=== PATIENT | male | born 1930 | race Caucasian/White ===

== ENCOUNTER 2017-08-18 12:44 | Inpatient (IN) | payer MEDICARE, BC ==
[~2017-08-18] VITALS: Ht 182.9 cm; Wt 143.4 kg
[~2017-08-18 12:44] MED LIST: AGGRENOX 200/251 CAP PO; ALDACTONE25 MG PO; BUMEX2 MG PO; HALCION0.25 MG PO; K-TAB10 MEQ PO; LANTUS SOL100 UNIT/1; LANTUS SOL100 UNIT/1 SC; LASIX80 MG PO; LEVSIN/ANASP0.125 MG PO; LYRICA75 MG PO; METOPROLOL TART25 MG PO; MULTIPLE VITAMI1 TA1 PO; MYRBETRIQ25 MG PO; NOVOLIN R100 U/ML SC; NOVOLIN R100 U/ML SQ; OXYBUTYNIN CHLOR5 MG PO; PROTONIX40 MG PO; TRADJENTA5 MG PO; VIBRAMYCIN 100100 MG PO; ZOCOR40 MG PO
[2017-08-18 13:33] LABS: BASOPHILS 0.4 % (0-2); EOSINOPHILS 0 % (0-7); HEMOGLOBIN 13.8 g/dL (13.5-17.5); IMMATURE GRANULOCYTES 1.4 % (0-5); LYMPHOCYTES 9.8 % (15-50); MCH 31.9 pg (26.0-34.0); MCHC 34.5 g/dL (31.0-37.0); MCV 92.4 fL (80.0-100.0); MEAN PLATELET VOLUME 11.1 fL (7.4-10.4); MONOCYTES 7.1 % (2-11); NEUTROPHILS 81.3 % (40-80); PLATELET COUNT 228 10x3/uL (130-400); RBC 4.33 10x6/uL (4.20-6.10); RDW 12.7 % (11.5-14.5); WBC 10.7 10x3/uL (4.8-10.8)
[2017-08-18 13:59] LABS: ALBUMIN 3.2 g/dL (3.4-5.0); ANION GAP 18.9 mmol/L (8-16); BILIRUBIN - TOTAL 0.57 mg/dL (0.2-1.3); CALCIUM 9.5 mg/dL (8.5-10.1); CARBON DIOXIDE 23.8 mmol/L (21.0-32.0); POTASSIUM - SERUM 4.7 mmol/L (3.5-5.1); PROTEIN - SERUM 7.9 g/dL (6.4-8.2)
[2017-08-18 14:41] LABS: APPEARANCE CLOUDY (CLEAR); BACTERIA FEW /hpf (NONE SEEN); BILIRUBIN NEGATIVE (NEGATIVE); COLOR YELLOW (YELLOW); EPITHELIAL CELLS RARE /hpf (0-5); GLUCOSE 500 mg/dL (NEGATIVE); KETONE SMALL mg/dL (NEGATIVE); MUCUS <1+ /lpf (NONE SEEN); NITRITE NEGATIVE (NEGATIVE); PROTEIN NEGATIVE (NEGATIVE); RED CELLS - URINE 0-5 /hpf (0-5); UROBILINOGEN NORMAL (NORMAL)
--- NOTE | 2017-08-18 19:17 | NUR ---
PT ARRIVED TO FLOOR VIA BED. FAMILY WITH PT. V/S WNL. TEMP WAS 100.1. BED IS CURRENTLY NOT WORKING. WILL CHANGE OUT WHEN A BED BECOMES AVAILABLE. PT IS ON 2L O2 VIA NC. LLE RED AND SWOLLEN. RLE SWOLLEN. BED AT LOWEST POSITION. CALL LIGHT IN REACH. SIDE RAILS UPX2. IV TO RIGHT AC, SL. WILL CONTINUE TO MONITOR
[2017-08-18 20:09] VITALS: BP 164/79; BMI 44.4
--- NOTE | 2017-08-18 20:10 | NUR ---
PT. IN BED WITH HOB UP FOR COMFORT WITH MANY FAMILY MEMBERS PRESENT. REPORTED THAT I KNEW ABOUT HIS BROKEN BED AND I WILL GET A NEW CLEAN BED WILLY. ALL STATED THEY UNDERSTOOD. ASSESSMENT COMPLETED. JOVANNY TO BSCricket WITHOUT PROBLEMS. CALL LIGHT WITHIN REACH.
--- NOTE | 2017-08-18 20:10 | NUR ---
FSBS 520. CALLED DR. MCKEE'S ON-CALL SERVICE AND REQUESTED RETURN CALL FROM ON-CALL MD.
--- NOTE | 2017-08-18 20:13 | NUR ---
DR. BLANK RETURNED CALL AND REPORTED FSBS OF 520. NEW ORDERS RECEIVED AND CARRIED OUT.
[2017-08-18 20:28] VITALS: BP 164/79; BMI 44.4
--- NOTE | 2017-08-18 20:28 | NUR ---
ASSESSMENT COMPLETED FOR ADMISSION. PT. RESTING WITH FAMILY STILL PRESENT, BUT THEY WILL BE LEAVING SOON. PT'S CALL LIGHT REMAINS WITHIN REACH.
--- NOTE | 2017-08-18 22:12 | NUR ---
2 HOUR REPEAT FSBS IS 406. S.S. FOLLOWED.
[2017-08-18 22:49] VITALS: BP 147/93
--- NOTE | 2017-08-18 23:28 | NUR ---
GOT PT. NEW BED AND HE IS ABLE TO ADJUST TO HIS NEEDS. PT. LYING ON HIS RIGHT SIDE WITH EYES CLOSED AND HE IS WEARING HIS NASAL CPAP. CALL LIGHT WITHIN REACH.
[2017-08-19] VITALS: BP 139/66
--- NOTE | 2017-08-19 03:25 | NUR ---
PT. IN BED WITH HOB UP FOR COMFORT WITH EYES CLOSED AND RESP. EVEN. NASAL C-PAP STILL IN PLACE WITHOUT ANY ALARMS. PETTY CATHTER TO BSD WITHOUT PROBLEMS. CALL LIGHT WITHIN REACH.
[2017-08-19 06:10] LABS: BASOPHILS 0.4 % (0-2); EOSINOPHILS 0.8 % (0-7); HEMATOCRIT 37.4 % (42.0-54.0); HEMOGLOBIN 12.8 g/dL (13.5-17.5); IMMATURE GRANULOCYTES 1.8 % (0-5); LYMPHOCYTES 12.7 % (15-50); MCH 31.5 pg (26.0-34.0); MCHC 34.2 g/dL (31.0-37.0); MCV 92.1 fL (80.0-100.0); MEAN PLATELET VOLUME 10.7 fL (7.4-10.4); MONOCYTES 10.5 % (2-11); NEUTROPHILS 73.8 % (40-80); PLATELET COUNT 260 10x3/uL (130-400); RBC 4.06 10x6/uL (4.20-6.10); RDW 12.8 % (11.5-14.5); WBC 11.3 10x3/uL (4.8-10.8)
[2017-08-19 06:30] LABS: ANION GAP 12.9 mmol/L (8-16); CALCIUM 9.5 mg/dL (8.5-10.1); CARBON DIOXIDE 26.7 mmol/L (21.0-32.0); CREATININE - SERUM 1.7 mg/dL (0.6-1.3)
[2017-08-19 06:31] LABS: POTASSIUM - SERUM 3.6 mmol/L (3.5-5.1)
--- NOTE | 2017-08-19 07:50 | NUR ---
AM ROUNDING- RECEIVED REPORT FROM EMAIL PRODUCER NURSE PHAM. PT IS CURRENTLY LAYING IN BED WITH EYES CLOSED RESTING. HOME BI-PAP MACHINE IS CURRENTLY OFF. ON 02 AT 3L VIA NC. NO MONITOR. IV SEEN TO RIGHT AC THAT IS CURRENTLY SALINE LOCKED. NO NEED AT THIS TIME. WILL CONTINUE TO MONITOR AND CONTINUE WITH PLAN OF CARE.
[2017-08-19 08:00] VITALS: BP 154/76
[2017-08-19 11:10] VITALS: Ht 182.9 cm; Wt 143.4 kg
[2017-08-19 12:00] VITALS: BP 155/72
--- NOTE | 2017-08-19 14:34 | NUR ---
CALLED DR. MCKEE OFFICE. SPOKE WITH VIOLETA HURTADO NURSE (DR. MURRELL IS ANALYSIS ANALYST) REGARDING GETTING SOMETHING FOR DVT PREVENTION.
[2017-08-19 16:00] VITALS: BP 179/87
--- NOTE | 2017-08-19 16:42 | NUR ---
RECEIVED CALL FROM PTS DAUGHTER. DAUGHTER STATES THAT PT HAS BEEN HAVING PAIN FROM HIS RIGHT LEG. THIS INFORMED DAUGHTER THAT PT HAS NOT REPORTED ANY PAIN COMING FROM RIGHT LEG. AROUND THIS TIME THIS NURSE WENT INTO PTS ROOM TO TX PT WITH INSULIN ORDERED. DR SARMIENTO CAME INTO ROOM TO CHECK PTS LEFT LOWER EXTREMITY. THIS NURSE MADE DR. SARMIENTO AWARE OF PTS PAIN FROM RIGHT LOWER LEG AREA. DR. SARMIENTO GIVEN DOPPLER REQUESTED AND STATES PT HAS GOOD BLOOD FLOW TO BOTH BILATERAL LOWER EXTREMITIES. NO NEW ORDER RECEIVED. WILL CONTINUE TO MONITOR.
--- NOTE | 2017-08-19 16:55 | NUR ---
DR. VALDES ON UNIT. INFORMED HIM OF PTS RIGHT LOWER LEG PAIN. ALSO SPOKE WITH DR. VALDES REGARDING GETTING PT SOMEHTING ORDERED FOR DVT PROPHLAXIS. DR. VALDES STATES HE WILL ORDER SOMETHING FOR THAT. DR. VALDES ALSO INFORMED THAT PT WAS WANTING TO GET OOB TODAY AND INTO CHAIR (DR. VALDES AWARE THAT PT IS WEAK). DR. VALDES STATES HE WILL ORDER PHYSICAL THERAPY. ANCELMO ROSAS ON UNIT AND INFORMED DR. VALDES OF PTS TWO INSULINS ORDERED AROUND THE SAME TIME. DR. VALDES IS AWARE. NO NEW ORDER RECEIVED. WILL CONTINUE TO MONITOR.
--- NOTE | 2017-08-19 18:35 | NUR ---
PT IS CURRENTLY SITTING UP IN BED WITH EYES OPEN RESTING. IGLESIA BOYLE IN ROOM NOW GIVING PT CLEAN LINEN. PT DENIES ANY FURTHER NEED AT THIS TIME. WILL CONTINUE TO MONITOR.
--- NOTE | 2017-08-19 19:44 | NUR ---
PT IS RESTING IN BED WITH EYES OPEN. ALERT AND ORIENTED X 3. DENIES ANY PAIN OR DISCOMFORT AT THIS TIME. O2 IS ON @ 3LPM PER NC. NO SOB NOTED. RIGHT AC SALINE LOCK NOTED. INFUSING AT KVO AT THIS TIME. PETTY CATH IS PATENT AND DRAINING TO A GRAVITY BAG. SR'S ARE UP X 3 IN BED. CALL LIGHT AND BEDSIDE TABLE ARE WITHIN EASY REACH.
[2017-08-19 21:24] VITALS: BP 124/78
--- NOTE | 2017-08-19 22:05 | NUR ---
PT IS RESTING QUIETLY IN BED WITH EYES CLOSED. RESPS ARE EVEN AND UNLABORED. NO ACUTE DISTRESS NOTED.
--- NOTE | 2017-08-20 01:00 | NUR ---
PT RESTING IN BED WITH EYES CLOSED. NO ACUTE DISTRESS NOTED.
[2017-08-20 01:40] VITALS: BP 119/60
[2017-08-20 04:00] VITALS: BP 155/59
--- NOTE | 2017-08-20 05:27 | NUR ---
PT ASLEEP. RESPIRATIONS EVEN AND UNLABORED. CPAP ON. NO S/S OF DISTRESS. BED LOW AND CALL LIGHT IN REACH. WILL CPOC
[2017-08-20 08:00] VITALS: BP 137/70
--- NOTE | 2017-08-20 08:15 | NUR ---
AM ROUNDING- RECEIVED REPORT FROM KETTLE COORDINATOR NURSE MAXIME. PT IS CURRENTLY SITTING UP IN BED WITH EYES OPEN EATING BREAKFAST. 0N O2 AT 2L VIA NC. NO MONITOR. IV SEEN TO RIGHT AC THAT IS CURRENTLY SALINE LOCKED. PETTY CATHETER SEEN WITH CONCENTRATED/LEXIE URINE. NO NEED AT THIS CURRENT TIME. WILL CONTINUE TO MONITOR AND CONTINUE WITH PLAN OF CARE.
[2017-08-20 12:00] VITALS: BP 139/60
[2017-08-20 16:00] VITALS: BP 134/67
--- NOTE | 2017-08-20 17:37 | NUR ---
PT IS CURRENTLY SITTING UP IN BED WITH EYES OPEN RESTING EATING DINNER TRAY. BLOOD SUGAR TAKEN ORDERED AND TX PER ORDER. NO FURTHER NEED AT THIS TIME. WILL CONTINUE TO MONITOR.
--- NOTE | 2017-08-20 19:40 | NUR ---
PT IN BED. FAMILY AT BEDSIDE. TURNED PT PER REQUEST. DENIES FURTHER NEEDS AT THIS TIME.
[2017-08-20 21:05] VITALS: BP 130/61
[2017-08-21 01:17] VITALS: BP 142/68
[2017-08-21 05:10] LABS: BASOPHILS 0.2 % (0-2); EOSINOPHILS 2.6 % (0-7); HEMATOCRIT 36.1 % (42.0-54.0); HEMOGLOBIN 12.4 g/dL (13.5-17.5); IMMATURE GRANULOCYTES 1.5 % (0-5); LYMPHOCYTES 15.1 % (15-50); MCH 31.5 pg (26.0-34.0); MCHC 34.3 g/dL (31.0-37.0); MCV 91.6 fL (80.0-100.0); MEAN PLATELET VOLUME 10.7 fL (7.4-10.4); NEUTROPHILS 71.6 % (40-80); PLATELET COUNT 265 10x3/uL (130-400); RBC 3.94 10x6/uL (4.20-6.10); RDW 12.6 % (11.5-14.5); WBC 10.1 10x3/uL (4.8-10.8)
[2017-08-21 05:28] VITALS: BP 131/58
[2017-08-21 05:51] LABS: ALBUMIN 2.3 g/dL (3.4-5.0); ANION GAP 14.4 mmol/L (8-16); BILIRUBIN - TOTAL 0.4 mg/dL (0.2-1.3); CARBON DIOXIDE 25.3 mmol/L (21.0-32.0); CREATININE - SERUM 1.7 mg/dL (0.6-1.3); POTASSIUM - SERUM 3.7 mmol/L (3.5-5.1); PROTEIN - SERUM 6.5 g/dL (6.4-8.2)
--- NOTE | 2017-08-21 07:30 | NUR ---
AM ROUNDS- PT IN BED, A/O X4, RESP EVEN AND UNLABORED. RT AC IV SL, VANCOMYCIN IVPB HANGING ON IV POLE HAS NOT BEEN OPEN. PT DENIES ANY NEEDS AT THIS TIME, WAITING FOR BREAKFAST. BED LOW AND WHEELS LOCKED, CALL LIGHT IN REACH, NAD NOTED, WILL CONTINUE TO PLAN OF CARE.
[2017-08-21 08:02] VITALS: BP 141/61
--- NOTE | 2017-08-21 09:45 | NUR ---
AM MEDS GIVEN AT THIS TIME. PT DENIES ANY NEEDS AT THIS TIME, CALL LIGHT IN REACH, NAD NOTED,W ILL CONTINUE TO MONITOR.
--- NOTE | 2017-08-21 11:50 | NUR ---
BLOOD SUGAR OF 230, 12UNITS OF HUMALOG GIVEN PER S/S. PT IN BED, FIXING TO EAT LUNCH. FAMILY AT BEDSIDE, PT DENIES ANY NEEDS AT THIS TIME, CALL LIGHT IN REACH, NAD NOTED.
[2017-08-21 12:33] VITALS: BP 119/62
--- NOTE | 2017-08-21 13:57 | NUR ---
FAMILY WANTS PT TO GET IN THE SHOWER, INFORMED PT AND FAMILY THAT PHYSICAL THERAPY HAS TO ASSESS HIM FIRST TO SEE IF HE IS STRONG ENOUGHT TO GET IN THE SHOWER. PT AND FAMILY VERBALIZED UNDERSTANDING. WILL HAVE SPECIALIZED LANGUAGE INSTRUCTOR GIVE PT A BED BATH.
[2017-08-21 16:26] VITALS: BP 144/67
--- NOTE | 2017-08-21 16:46 | NUR ---
BLOOD SUGAR OF163, 20UNITS OF HUMULIN R GIVEN ORDERED. PT IN BED, DENIES ANY NEEDS AT THIS TIME. CALL LIGHT IN REACH, NAD NOTED
--- NOTE | 2017-08-21 19:17 | NUR ---
20 GUAGE PIV INSERTED INTO R.UPPER ARM X2 ATTEMPTS. FLUSHES WELL AND NOW SL. DRSG ADHERED TO SKIN AND SWAB CAPS IN USE.
--- NOTE | 2017-08-21 19:43 | NUR ---
RECEIVED REPORT, WILL ASSUME CARE OF PT, LAYING IN BED , DENIES ANY NEEDS AT THIS TIME, BED IS LOW, SRX2, CALL LIGHT IN REACH, WILL CONTINUE PLAN OF CARE
[2017-08-21 20:16] VITALS: BP 142/69
[2017-08-22 00:02] VITALS: BP 148/69
--- NOTE | 2017-08-22 00:34 | NUR ---
[id number] 8 UNITS HUMALOG ORDER
[2017-08-22 04:50] VITALS: BP 130/78
[2017-08-22 06:47] LABS: BASOPHILS 0.4 % (0-2); EOSINOPHILS 2.7 % (0-7); HEMOGLOBIN 12.7 g/dL (13.5-17.5); IMMATURE GRANULOCYTES 0.8 % (0-5); LYMPHOCYTES 15.1 % (15-50); MCH 30.9 pg (26.0-34.0); MCHC 33.4 g/dL (31.0-37.0); MCV 92.5 fL (80.0-100.0); MEAN PLATELET VOLUME 10.5 fL (7.4-10.4); MONOCYTES 7.7 % (2-11); NEUTROPHILS 73.3 % (40-80); PLATELET COUNT 288 10x3/uL (130-400); RBC 4.11 10x6/uL (4.20-6.10); RDW 12.7 % (11.5-14.5)
[2017-08-22 07:01] LABS: ALBUMIN 2.2 g/dL (3.4-5.0); ANION GAP 13.7 mmol/L (8-16); BILIRUBIN - TOTAL 0.4 mg/dL (0.2-1.3); CARBON DIOXIDE 26.2 mmol/L (21.0-32.0); CREATININE - SERUM 1.6 mg/dL (0.6-1.3); POTASSIUM - SERUM 3.9 mmol/L (3.5-5.1); PROTEIN - SERUM 6.7 g/dL (6.4-8.2)
--- NOTE | 2017-08-22 07:15 | NUR ---
RECEIVED REPORT. ASSUMED CARE OF PATIENT. RESTING IN SUPINE POSITION WITH EYES CLOSED. RESP EVEN AND UNLABORED. CALL LIGHT WITHIN REACH. F/C PATENT. NO DISTRESS.
--- NOTE | 2017-08-22 08:00 | NUR ---
FSBS 119. HUMULIN R 20 UNITS HELD.
[2017-08-22 08:47] VITALS: BP 140/65
--- NOTE | 2017-08-22 09:00 | NUR ---
FSBS 196. 50 UNITS LANTUS ADMINISTERED ORDERED.
--- NOTE | 2017-08-22 10:26 | NUR ---
NEW ORDER RECEIVED FROM TO D/C HUMULIN R AND CONTINUE WITH LANTUS ORDERS AND COVER WITH CURRENT HUMALOG S/S.
--- NOTE | 2017-08-22 11:13 | NUR ---
PATIENT OOB TO CHAIR AT THIS TIME WITH ASSIST OF PHYSICAL THERAPY.
--- NOTE | 2017-08-22 11:41 | NUR ---
FSBS 259. 16 UNITS HUMALOG ADMINISTERED PER SLIDING SCALE.
[2017-08-22 12:03] VITALS: BP 141/70
[2017-08-22 16:23] VITALS: BP 131/91
--- NOTE | 2017-08-22 17:50 | NUR ---
FSBS 229. 12 UNITS HUMALOG ADMINISTERED PER SLIDING SCALE.
--- NOTE | 2017-08-22 17:51 | NUR ---
PATIENT PULLED UP IN BED. CALL LIGHT WITHIN REACH. DENIES ANY FURTHER NEEDS. NO DISTRESS.
--- NOTE | 2017-08-22 19:27 | NUR ---
RECEIVED REPORT, WILL ASSUME CARE OF PT, PT DENIES ANY NEEDS AT THIS TIME, BED IS LOW, SRX2, CALL LIGHT IN REACH, WILL CONTINUE PLAN OF CARE
--- NOTE | 2017-08-22 20:36 | NUR ---
PLACED C-PAP ON PT, BLOODSUGAR-299, GAVE 50 UNITS OF LANTUS
[2017-08-22 20:43] VITALS: BP 172/63
--- NOTE | 2017-08-22 21:51 | HP ---
PATIENT: KEYANNA HOPE MEDICAL RECORD: [id number] ACCOUNT: [id number] LOCATION:[address] : 32 ADMISSION DATE: 08/18/17 HISTORY AND PHYSICAL EXAMINATION REASON FOR ADMISSION: Fatigue and pain and swelling in his left lower extremity. HISTORY OF PRESENT ILLNESS: The patient is an 87-year-old male with a history of diabetes, remote aortic valve replacement, congestive heart failure. The patient's family states he has had remote MS as well. He was hospitalized at [facility] in [place] after a stroke approximately 3 weeks ago and then saw a injection press operator who treated him for congestive heart failure. His name was Dr. Powell. On discharge, his Lasix was increased from 40 mg b.i.d. to 80 mg b.i.d. Family states he has had a marked diuresis from this, which made him very fatigued, could not get up as he is urinating all the time. He is also noted to have some redness of his left lower extremity above his ankle, which Dr. Infante evaluated on Wednesday and ordered antibiotics. The patient had not received as yet. For this reason, he came to the Emergency Room. Denies chest pain but complains of edema and generalized fatigue. PAST MEDICAL HISTORY: COPD, CHF, MS, aortic valve replacement, hyperlipidemia, obesity, diabetes mellitus, HAL, GERD, recent CVA. PAST SURGICAL HISTORY: Cholecystectomy. He has had left total knee replacement, right rotator cuff repair. ALLERGIES: CONTRAST, IODINE, AND INDOMETHACIN CAUSING SHORTNESS OF BREATH. FAMILY HISTORY: Both parents with hypertension. SOCIAL HISTORY: Former smoker. He is , nonalcohol user. MEDICATIONS: Furosemide 80 mg b.i.d.; metoclopramide 5 mg a.c. meals; pantoprazole 40 mg a day; simvastatin 40 mg at h.s.; Tradjenta 5 mg q.a.m.; Lantus SoloSTAR 50 units subQ b.i.d.; NovoLog FlexPen 24 units a.c. breakfast, 20 units in the evening; Aggrenox 25/200 mg extended release 1 cap b.i.d.; nitroglycerin 0.4 mg sublingual p.r.n. chest pain; isosorbide mononitrate ER 30 mg tablet p.o. daily; Aldactone 25 mg p.o. daily; metoprolol tartrate 50 mg p.o. b.i.d.; oxybutynin 5 mg a day; tramadol 50 mg q.6 hours p.r.n. pain. REVIEW OF SYSTEMS: GENERAL: Marked fatigue for the last week. HEAD, EYES, EARS, NOSE, AND THROAT: No recent visual change, sinus congestion, or sore throat. RESPIRATORY: Marked continued shortness of breath, worse on lying down. No sputum production, has had a dry cough. CARDIAC: Denies chest pain. Had increasing peripheral edema. He denies claudication. GASTROINTESTINAL: No nausea, vomiting, change in stools or blood per rectum. GENITOURINARY: Nocturia constantly since being on diuretics. He usually has 2 times nocturia, no dysuria. 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 ENDOCRINE: Denies heat or cold intolerance but has had polyuria, polydipsia recently. HISTORY AND PHYSICAL [id number] KEYANNA HOPE PSYCHIATRIC: He admits his diabetes is poorly controlled. INTEGUMENT: Rinard tender rash over his left lower leg just above the ankle. He has chronic purple discoloration in the dorsum of his left foot and above his right foot, he has had it for multiple years. Toenails are yellow, discolored, and thickened indicating fungal overgrowth. NEUROLOGIC: Oriented to person, place, and time. Cranial nerves grossly intact. Slightly decreased physical education aide in the right upper extremity. Gait not tested. GENITOURINARY: Shows Tam in place. LABORATORY DATA: Arterial Doppler shows slightly decreased monophasic pattern below the knees bilaterally. Venous Doppler is negative. One-view chest x-ray shows increased interstitial markings, otherwise unremarkable. Initial blood sugar was 693, after insulin was down to 569, potassium 4.7, CO2 is 23.8. Serum ketones are negative. Anion gap of 18.9 elevated, BUN 36, creatinine 2.0. ProBNP is 1424. White count is 10,700 with left shift. H&H 13 and 40.0 respectively. Urinalysis shows urine to be cloudy, small ketones, 2+ blood, a few bacteria. ASSESSMENT: 1. Cellulitis, left lower extremity. 2. Subacute cerebrovascular accident and congestive heart failure. 3. Azotemia. 4. Uncontrolled diabetes mellitus type 2. 5. Hyperlipidemia. PLAN: The patient will be admitted. We will hold on diuresis at this time. We will treat his uncontrolled diabetes with subQ and IV insulin as indicated. IV antibiotics. Further workup pending clinical course. TRANSINT:[id number] Voice Confirmation ID: [id number] DOCUMENT ID: [id number] TEREZA MCKEE MD at 2151 CC: [id number] DICTATION DATE: 08/18/171915 ENTERPRISE INTEGRATION ARCHITECT: 08/18/172043 ADM IN [facility] [id number] [place] [address]
--- NOTE | 2017-08-22 23:52 | NUR ---
[id number] 16 UNIT HUMALOG, ORDER
[2017-08-23 00:06] VITALS: BP 181/70
[2017-08-23 05:00] VITALS: BP 142/66
[2017-08-23 06:05] LABS: BASOPHILS 0.2 % (0-2); EOSINOPHILS 2.3 % (0-7); HEMATOCRIT 35.5 % (42.0-54.0); HEMOGLOBIN 11.8 g/dL (13.5-17.5); MCH 30.9 pg (26.0-34.0); MCHC 33.2 g/dL (31.0-37.0); MCV 92.9 fL (80.0-100.0); MEAN PLATELET VOLUME 10.4 fL (7.4-10.4); MONOCYTES 8.3 % (2-11); NEUTROPHILS 73.2 % (40-80); PLATELET COUNT 293 10x3/uL (130-400); RBC 3.82 10x6/uL (4.20-6.10); RDW 12.6 % (11.5-14.5); WBC 9.3 10x3/uL (4.8-10.8)
[2017-08-23 06:30] LABS: ALBUMIN 2.2 g/dL (3.4-5.0); ANION GAP 13.3 mmol/L (8-16); BILIRUBIN - TOTAL 0.4 mg/dL (0.2-1.3); CALCIUM 8.6 mg/dL (8.5-10.1); CARBON DIOXIDE 25.8 mmol/L (21.0-32.0); CREATININE - SERUM 1.6 mg/dL (0.6-1.3); POTASSIUM - SERUM 4.1 mmol/L (3.5-5.1); PROTEIN - SERUM 5.9 g/dL (6.4-8.2)
--- NOTE | 2017-08-23 07:51 | NUR ---
AM ROUNDING- RECEIVED REPORT FROM DISASTER DIRECTOR NURSE SHANITA. PT IS CURRENTLY LAYING IN BED ON BACK WITH EYES CLOSED RESTING. ON 02 AT 3L VIA NC. NO MONITOR. IV SEEN TO RIGHT UPPER ARM THAT IS CURRENTLY SALINE LOCKED. PETTY CATHETER SEEN WITH CLEAR YELLOW URINE. NO NEED AT THIS CURRENT TIME. WILL CONTINUE TO MONITOR AND CONTINUE WITH PLAN OF CARE.
[2017-08-23 08:00] VITALS: BP 147/67
[2017-08-23 12:00] VITALS: BP 154/67
--- NOTE | 2017-08-23 12:04 | NUR ---
PRIOR ON SHIFT PT C/O IV BURNING. THIS NURSE ASSESSED IV SITE WHICH WAS RED AND HARD TO TOUCH. IV REMOVED TO RIGHT UPPER ARM WITH CATH TIP INTACT. THIS NURSE ATTEMPTED TO RESITE PT WITH IV CATHETER X1 STICK THAT WAS NOT SUCCESSFUL. MICAELA CERVANTES, VASCULAR ACCESS NURSE CALLED. MICAELA CAME TO UNIT AND SITED PT WITH 22G IV CATHETER TO RIGHT HAND.
[2017-08-23 17:21] VITALS: BP 154/77
--- NOTE | 2017-08-23 18:09 | NUR ---
PT IS CURRENTLY SITTING UP IN BED WITH EYES OPEN RESTING. PTS IV SALINE LOCKED. PETTY CATHETER EMPTIED. NO FURTHER NEED AT THIS TIME. PTS DAUGHTER COMES TO NURSES STATION AND ASK IF THIS NURSE CAN PUT NOTE IN FOR DR. VALDES REGARDING PTS RIGHT LEG AND NOT BEING ABLE TO BEAR WEIGHT ON IT. I INFORMED DAUGHTER THAT I WILL LET DR. VALDES KNOW TOMORROW WHEN I SEE HIM. WILL CONTINUE TO MONITOR.
[2017-08-23 21:30] VITALS: BP 148/66
[2017-08-24 02:05] VITALS: BP 141/67
--- NOTE | 2017-08-24 04:42 | NUR ---
ASSESSMENT COMPLETE, SEE FLOWSHEET, SLEEPING WITH C-PAP ON, NO DISTRESS NOTICED, BED IS LOW, SRX2, CALL LIGHT IN REACH, WILL CONTINUE PLAN OF CARE
[2017-08-24 05:49] LABS: BASOPHILS 0.3 % (0-2); EOSINOPHILS 1.6 % (0-7); HEMATOCRIT 36.5 % (42.0-54.0); HEMOGLOBIN 12.2 g/dL (13.5-17.5); IMMATURE GRANULOCYTES 0.6 % (0-5); LYMPHOCYTES 13.2 % (15-50); MCH 31.1 pg (26.0-34.0); MCHC 33.4 g/dL (31.0-37.0); MCV 93.1 fL (80.0-100.0); MEAN PLATELET VOLUME 10.2 fL (7.4-10.4); MONOCYTES 6.4 % (2-11); NEUTROPHILS 77.9 % (40-80); PLATELET COUNT 316 10x3/uL (130-400); RBC 3.92 10x6/uL (4.20-6.10); RDW 12.6 % (11.5-14.5)
[2017-08-24 06:08] LABS: ALBUMIN 2.2 g/dL (3.4-5.0); ANION GAP 13.5 mmol/L (8-16); BILIRUBIN - TOTAL 0.4 mg/dL (0.2-1.3); CARBON DIOXIDE 26.7 mmol/L (21.0-32.0); CREATININE - SERUM 1.6 mg/dL (0.6-1.3); POTASSIUM - SERUM 4.2 mmol/L (3.5-5.1); PROTEIN - SERUM 6.9 g/dL (6.4-8.2)
--- NOTE | 2017-08-24 07:49 | NUR ---
AM ROUNDS - PT IS IN BED AND APPEARS TO BE SLEEPING WITH EQUAL AND NON LABORED BREATHING. PT IS ON 3L O2 VIA NC. CPAP AT NIGHT. IV TO RIGHT HAND, NS AT KVO (10CC/HR). PT IS EP, K+ 4.2. BED AT LOWEST POSITION. CALL LOPEZ IN USE/REACH. SIDE RAILS UP X2. WILL CONTINEU TO MONITOR
[2017-08-24 08:00] VITALS: BP 141/76
--- NOTE | 2017-08-24 09:40 | PN ---
PATIENT:KEYANNA HOPE MEDICAL RECORD: [id number] LOCATION:[address] ADMISSION DATE: 08/18/17 PROGRESS NOTE DATE OF SERVICE: 08/19/2017 CHIEF COMPLAINT: Better. HISTORY OF PRESENT ILLNESS: The patient's lower extremity swelling has improved whereas his left lower extremity was very swollen now. There are some wrinkles present indicating that the swelling is improved. He still has pitting edema involving the left lower extremity. I think the cellulitis is perhaps a little improved as well. Handheld Doppler examination reveals that he has Doppler signal in both dorsalis pedis arteries as well as in both posterior tibial arteries at the ankle as well as flow in the left peroneal artery. Symptoms are improved. He is still short of breath. He is still orthopneic. This is a progress note addendum. For the typed portion of the progress note, please see the chart. Palpation aggravates. Nothing alleviates. Symptoms are improved. The typed portion includes the past medical and surgical history, current medications, allergies, social history, as well as family history. REVIEW OF SYSTEMS: No nausea, no vomiting, no fever. Positive for mild shortness of breath, no chills, no chest pain. Positive for continued lower extremity pain. He is having more lower extremity pain now in the right lower extremity than on the left. PHYSICAL EXAMINATION: GENERAL: The patient does appear acutely ill. Also appears chronically ill. VITAL SIGNS: Reviewed. EARS: External ears appear normal. EYES: Extraocular movements are intact. NECK: Trachea is midline. CHEST: No intercostal retractions. PULMONARY: Mildly labored. No stridor. ABDOMEN: No peritonitis with movement. EXTREMITIES: As described above. INTEGUMENT: As described above. PSYCHIATRIC: Normal affect. NEUROLOGIC: He is somewhat hard of hearing. Answers questions appropriately. BACK: No thoracic kyphosis. LYMPHATIC: No lymphangitic streaking of the exposed extremities. IMPRESSION: Improved venous stasis cellulitis. PLAN: Continue with lower extremity elevation as well as IV antibiotics. I will see the patient on a p.r.n. basis. I told the patient that if he is interested in a vein ablative procedure, he can see me in the office and we can begin that workup. TRANSINT:[id number] Voice Confirmation ID: [id number] DOCUMENT ID: [id number] PROGRESS NOTE [id number] KEYANNA HOPE ROBERT MD at 0940 CC: [id number] DICTATION DATE: 08/20/17 1015 CONSULTING UTILITY FORESTER: 08/20/17 1122 ADM IN [facility] [address] [place] [address]
--- NOTE | 2017-08-24 09:40 | CN ---
PATIENT NAME:KEYANNA HOPE MEDICAL RECORD: [id number] : 34 LOCATION:[address]. [address] ADMIT DATE: 08/18/17 ACCOUNT: [id number] CONSULTING PHYSICIAN: FELIX SARMIENTO MD REFERRING PHYSICIAN: TEREZA MCKEE MD DATE OF CONSULTATION: 08/18/2017 CHIEF COMPLAINT: Pain. HISTORY OF PRESENT ILLNESS: The patient has congestive heart failure. He was admitted through the Emergency Room with cellulitis involving the left lower extremity. He states that he has been afebrile. The cellulitis is tender. So, this may be an infectious cellulitis than a reactive cellulitis. He has venous stasis insufficiency. It is CEAP-3 on the right as well as CEAP-4 on the left. 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 He has eczematous changes and also cellulitis. This is entirely consistent with venous stasis insufficiency. There is no ulceration involving the left lower extremity. He states that he had this condition for a long time. There are hemosiderin changes. The patient has undergone an arterial duplex as well as a venous duplex of the left lower extremity. I have personally reviewed the arterial duplex images. I have personally reviewed the arterial duplex report. The patient does have flow within the dorsalis pedis artery. His left foot is warm. I believe that his current condition is not related to arterial peripheral vascular disease, but instead is due to venous insufficiency and venous stasis cellulitis. Palpation aggravates. Nothing alleviates. His symptoms are longstanding. They have worsened over the last few days. This is a consultation note addendum. For the typed portion of the consult note, please see the chart. This would include the past medical and surgical history, current medications, allergies, social history as well as family history. REVIEW OF SYSTEMS: Positive for shortness of breath. Positive for orthopnea. Positive for fever. Positive for left lower extremity tenderness. The review of systems is negative other than as is described above. PHYSICAL EXAMINATION: GENERAL: The patient appears acutely ill. He also appears chronically ill. VITAL SIGNS: Reviewed. EARS: External ears appear normal. EYES: Extraocular movements are intact. NECK: Trachea is midline. CHEST: No intercostal retractions. PULMONARY: Mildly labored. No stridor. ABDOMEN: No peritonitis with movement. His abdomen is distended. EXTREMITIES: Pitting edema of the lower extremities. PSYCHIATRIC: Normal affect. NEUROLOGIC: He is somewhat hard of hearing. He wiggles his toes on command. BACK: No thoracic kyphosis. LYMPHATICS: No lymphangitic streaking of the exposed extremities. INTEGUMENT: As described above. IMPRESSION: Venous stasis cellulitis, which is likely an infectious cellulitis. 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 PLAN: Elevation of the lower extremities. IV antibiotics. He may be a candidate for a vein ablative procedure sometime in the future should his health improve. This will be something like VNUS radiofrequency ablation of superficial veins. He would need to have a standing venous duplex reflux study prior to scheduling any such operation. TRANSINT:[id number] Voice Confirmation ID: [id number] DOCUMENT ID: [id number] FELIX SARMIENTO MD at 0940 CC: TEREZA MCKEE MD [id number] DICTATION DATE: 08/20/1746 CLERICAL COORDINATOR: 08/20/17 1042 ADM IN [facility] [address] [place] [address]
[2017-08-24 12:00] VITALS: BP 156/74
[2017-08-24 17:10] VITALS: BP 140/80
--- NOTE | 2017-08-24 17:10 | NUR ---
PT IS UP IN THE CHAIR EATING DINNER AT THIS TIME. NO NEEDS. WILLC OTNINEUT O MONITOR
[2017-08-25 04:39] VITALS: BP 137/67
[2017-08-25 05:55] LABS: BASOPHILS 0.2 % (0-2); EOSINOPHILS 1.6 % (0-7); HEMATOCRIT 36.9 % (42.0-54.0); HEMOGLOBIN 12.2 g/dL (13.5-17.5); IMMATURE GRANULOCYTES 0.3 % (0-5); LYMPHOCYTES 10.9 % (15-50); MCH 30.9 pg (26.0-34.0); MCHC 33.1 g/dL (31.0-37.0); MCV 93.4 fL (80.0-100.0); MEAN PLATELET VOLUME 10.5 fL (7.4-10.4); MONOCYTES 7.7 % (2-11); NEUTROPHILS 79.3 % (40-80); PLATELET COUNT 345 10x3/uL (130-400); RBC 3.95 10x6/uL (4.20-6.10); RDW 12.4 % (11.5-14.5); WBC 9.5 10x3/uL (4.8-10.8)
[2017-08-25 07:48] LABS: ALBUMIN 2.4 g/dL (3.4-5.0); ANION GAP 15.8 mmol/L (8-16); BILIRUBIN - TOTAL 0.38 mg/dL (0.2-1.3); CALCIUM 8.8 mg/dL (8.5-10.1); CARBON DIOXIDE 26.7 mmol/L (21.0-32.0); CREATININE - SERUM 1.4 mg/dL (0.6-1.3); POTASSIUM - SERUM 4.5 mmol/L (3.5-5.1); PROTEIN - SERUM 6.6 g/dL (6.4-8.2)
[2017-08-25 08:24] VITALS: BP 152/76
--- NOTE | 2017-08-25 08:36 | NUR ---
AM ROUNDS - PT IN IS IN BED AND APPEARS TO BE SLEEPING WITH EQUAL ADN NON LABORED BREATHING. O2 AT 2L VIA NC. IV TO RIGHT HAND, SL. PETTY. 2PERSON ASSIST. BED AT LOWEST POSTION. CALL LOPEZ IN USE/REACH. SIDE RAILS UP X2. WILL CONTINUE TO MONITOR
--- NOTE | 2017-08-25 11:05 | NUR ---
PT SITTING UP IN CHAIR AT THIS TIME. WILLC OTNINEUT O MONITOR
[2017-08-25 11:55] VITALS: BP 115/56
--- NOTE | 2017-08-25 13:48 | NUR ---
Nutrition Follow Up: Chart reviewed. Pt is eating 97% meal avg on a diabetic diet. Wt stable. +BM 08/20/17 - no BM x 5 days. Labs reviewed - Glucose elevated. Meds noted. Rec continue current diet. RD following.
[2017-08-25 15:27] VITALS: BP 150/66
--- NOTE | 2017-08-25 15:55 | NUR ---
Patient Name: KEYANNA HOPE Admission Status: ER Accout number: [id number] Admission Date: 08-18-2017 : 1932 Admission Diagnosis:OTHER SPECIFIED SOFT TISSUE DISORDERS Attending: TEREZA MCKEE Current LOS: 7 Anticipated DC Date: Planned Disposition: Home Primary Insurance: MEDICARE A & B Discharge Planning Comments: * Is the patient Alert and Oriented? Yes 0 * How many steps to enter\exit or inside your home? 2 0 * PCP DR. VALDES 0 * Pharmacy [facility] 0 * Preadmission Environment Home Alone 0 * ADLs Independent 0 * Equipment None 0 * Other Equipment [facility] PATIENT - MEDICAL EQUIPMENT PROVIDER PREFERENCE 0 * List name and contact numbers for known caregivers / representatives who currently or will assist patient after discharge: RILEY HOPE, SON, 0 * Community resources currently utilized None 0 * Please name any agencies selected above. NONE 0 * Additional services required to return to the preadmission environment? No 0 * Can the patient safely return to the preadmission environment? Yes 0 * Has this patient been hospitalized within the prior 30 days at any hospital? Yes 0 CM MET WITH PT IN ROOM TO DISCUSS DISCHARGE PLANNING AND NEEDS. PT REPORTS LIVING AT HOME INDEPENDENTLY AND ALONE. PT HAS NO MEDICAL EQUIPMENT AND NO OUTSIDE SERVICES ASSISTING IN THE HOME. CM DISCUSSED AVAILABILITY OF HOME HEALTH, REHAB SERVICES AND MEDICAL EQUIPMENT. PT UNSURE OF DISCHARGE NEEDS, REPORTS ONE OF HIS CHILDREN WILL PICK HIM UP FOR DISCHARGE HOME. CM PROVIDED INFORMATION REGARDING JAIL AND HOME HEALTH SERVICES. IMPORTANT MESSAGE FROM MEDICARE PROVIDED AND EXPLAINED. PT PLANS TO DISCHARGE HOME, HAS UNKNOWN DISCHARGE NEEDS AT THIS TIME. CM TO FOLLOW AND ASSIST NEEDED. Supervisor Body Assembly: Galen Torres
--- NOTE | 2017-08-25 18:11 | NUR ---
FAMILY AND PT WANTES TO GO TO INPT REHAB.
[2017-08-25 20:00] VITALS: BP 138/67
--- NOTE | 2017-08-26 02:33 | NUR ---
NURSE ROUNDS 08/25/17 21:00 - PT LYING IN BED, AWAKE, ALERT, ORIENTED, DENIES ANY NEEDS. IGLESIA DOYLE AND MYSELF PULLED PT UP IN BED AND ASSISTED PT WITH REPOSITIONING. I DID GIVE PT ALFONSO CRACKERS AND A DIET COLA FOR PTS HS SNACK WITH HIS INSULIN ADMINISTRATION. CONTINUE TO MONITOR CLOSELY. BED LOW, CALL LIGHT IN REACH, SIDE RAILS X 2, HOB 35-40 DEGREES.
[2017-08-26 04:00] VITALS: BP 115/85
--- NOTE | 2017-08-26 06:46 | NUR ---
PT RESTING COMFORTABLY, C-PAP ON, NO NEEDS. CONTINUE TO MONITOR CLOSELY.
[2017-08-26 08:54] VITALS: BP 146/67
--- NOTE | 2017-08-26 11:06 | NUR ---
Patient Name: KEYANNA HOPE Encounter No: [id number] : 1930 Primary Insurance: MEDICARE A & B Anticipated DC Date: Planned Disposition: INPATIENT REHAB External Planned Provider: [facility] INPATIENT REHAB DCP follow-up note: CM RECEIVED ORDER FOR INPATIENT REHAB PRESCREENING, CM SPOKE TO PT IN ROOM, DISCUSSED INPATIENT AND PRISON REHAB OPTIONS. PT WOULD LIKE TO BE CONSIDERED FOR INPATIENT REHAB HE FEELS THAT HE WILL BE ABLE TO FULLY PARTICIPATE WITH THERAPY TO REGAIN PRIOR LEVEL OF INDEPENDENCE TO RETURN HOME ALONE. PT DID DISCUSS WITH DR AND HIS DAUGHTER. [id number] MESSAGE FROM MEDICARE PROVIDED AND DISCUSSED. CM WAITING RESULTS OF INPATIENT REHAB PRESCREENING FROM [facility] INPATIENT REHAB. Galen Torres, CASE MANAGEMENT
[2017-08-26 12:55] VITALS: BP 132/65
[2017-08-26 16:01] VITALS: BP 140/69
--- NOTE | 2017-08-26 18:15 | NUR ---
AWAITING DC ORDERS TO REHAB. SPOKE WITH DR VALDES AND HE STATED HE WOULD GET THEM IN SOON HE GOT TO A COMPUTER IN ABOUT AN HOUR.
--- NOTE | 2017-08-26 20:39 | NUR ---
D/C PAPERS COMPLETE AND SIGNED. PTS BELONGINGS HAVE BEEN COLLECTED AND TAKEN WITH PT. REPORT CALLED TO TALIA IN REHAB. PT BEING TRANSFERRED TO INPATIENT ROOM 1112-A ORDERED. ALL OF PTS 21:00 MEDICATIONS WERE GIVEN PRIOR TO TRANSPORT. PTS LANTUS PEN HAD ONLY 42 UNITS LEFT, WHICH I DID ADMINISTER, WHICH IS LESS THAN THE ORDERED 50 UNITS. PT BEING TRANSPORTED WITH O2 AT 3 LPM BY PARAMEDICAL AIDE'S. PT HAD NO QUESTIONS FOR D/C AND IS LOOKING FORWARD TO REHAB. NO OTHER NEEDS.
--- NOTE | 2017-09-13 13:40 | DS ---
PATIENT:KEYANNA HOPE :34 MEDICAL RECORD: [id number] DISCHARGE SUMMARY ADMISSION DATE: 08/18/17 DISCHARGE DATE: 08/26/17 DATE OF ADMISSION: 08/18/2017 DATE OF DISCHARGE: 08/26/2017 ADMIT DIAGNOSIS: M79.89, other specified soft tissue disorders, cellulitis of his left leg really is what it was. PRINCIPAL DIAGNOSES: Phlebitis and thrombophlebitis of lower extremity, unspecified. OTHER DIAGNOSES: Cellulitis of left lower limb, L03.116. Disorder of kidney and ureter, unspecified. Bursopathy, unspecified, M71.9, specifically the patient had an anserine bursitis of the right knee. Chronic obstructive pulmonary disease and heart failure, unspecified. Hyperlipidemia. Obesity. Type 2 diabetes mellitus. Obstructive sleep apnea. Gastroesophageal reflux disease without esophagitis. Personal history of transient ischemic attack. Personal history of nicotine dependence. CONSULTS: General surgery, Dr. Israel. PROCEDURES: The patient had IV antibiotics. COURSE: The patient slowly improved over the course of his hospital stay with antibiotic therapy and control of his chronic diseases. DISPOSITION: The patient was discharged to inpatient rehabilitation. CONDITION AT THE TIME OF DISCHARGE: Stable and improving. DISCHARGE MEDICATIONS: Please refer to the patient's discharge medication reconciliation list. TRANSINT:[id number] Voice Confirmation ID: [id number] DOCUMENT ID: [id number] CHENG VALDES MD at 1340 CC: [id number] DICTATION DATE: 09/12/17 1242 BANQUET KITCHEN SUPERVISOR: 09/13/17 0339 DIS IN 08/26/[address] [address]
[2017-11-10] MEDS ORDERED: AGGRENOX 200/251 CAP PO (20:03)
[2017-11-10] MEDS ORDERED: LASIX40 MG PO (20:16)
[2017-11-10] MEDS ORDERED: VIBRAMYCIN 100100 MG PO (20:17)
[2017-11-18] MEDS ORDERED: COLCRYS0.6 MG PO (18:07)
[2017-11-18] MEDS ORDERED: ULORIC40 MG PO (18:08)
[2017-11-18] MEDS ORDERED: ACETAMINOPHEN500 M1 PO (18:08)
[2017-11-18] MEDS ORDERED: VOLTAREN100 GM TOPICAL (18:08)
[2017-11-18] MEDS ORDERED: ZOLOFT50 MG PO (18:09)
== END 2017-08-26 20:44 | DRG 294 ==
LOC: D.ER 12:44 → D.M2 17:00 → D.SDCHOLD 17:00 → D.M2 17:37
PROVIDERS: Emergency Medicine; Family Medicine; ADMIT Family Medicine
DX: I80.3 Phlebitis and thrombophlebitis of lower extremities, unspecified (principal); L03.116 Cellulitis of left lower limb; N28.9 Disorder of kidney and ureter, unspecified; M71.9 Bursopathy, unspecified; J44.9 Chronic obstructive pulmonary disease, unspecified; I50.9 Heart failure, unspecified; E78.5 Hyperlipidemia, unspecified; E66.9 Obesity, unspecified; E11.9 Type 2 diabetes mellitus without complications; G47.33 Obstructive sleep apnea (adult) (pediatric); K21.9 Gastro-esophageal reflux disease without esophagitis; Z86.73 Personal history of transient ischemic attack (TIA), and cerebral infarction without residual deficits; Z87.891 Personal history of nicotine dependence

== ENCOUNTER 2017-08-26 20:50 | Inpatient (IN) | payer MEDICARE, BC ==
[~2017-08-26] VITALS: Ht 182.9 cm; Wt 149.7 kg
--- NOTE | 2017-08-26 20:50 | NUR ---
RECEIVED PATIENT TO BED 1112A, ACCOMPANIED BY MED 2 STAFF. PETTY CATHETER PATENT TO BEDSIDE DRAINAGE. O2 PER N/C @ 2L. GAVE PATIENT FRESH WATER TO DRINK. TOLD HIM I AM GOING TO DELIVER MY OTHER PATIENT'S MEDICATIONS AND WILL RETURN TO PERFORM HIS ADMISSION ASSESSMENT. SAYS HE UNDERSTANDS.
--- NOTE | 2017-08-26 22:35 | NUR ---
PATIENT SHOUTING OUT, "WHAT'S GOING ON HERE?" WENT TO HIS ROOM TO DETERMINE HIS DISTRESS. SAID HE WANTED HIS CPAP EMPLACED. TOLD HIM I STILL NEED TO DO HIS ASSESSMENT AND THEN WE WILL EMPLACE HIS CPAP. MEANWHILE I CALLED ADMISSIONS A 2ND TIME INQUIRING WHY PATIENT IS NOT YET ON THE UNIT CENSUS.
[2017-08-26 23:27] VITALS: BP 122/86; BMI 44.8
--- NOTE | 2017-08-27 00:15 | NUR ---
ADMISSION ASSESSMENT AND HISTORY COMPLETE. PATIENT SIGNED ADMISSION DOCUMENTS. ASSISTED HIM TO DON CPAP MASK AND CHIN STRAP AND STARTED CPAP. DENIES FURTHER NEEDS.
--- NOTE | 2017-08-27 02:15 | NUR ---
IN BED, EYES CLOSED. HOB UP 20 DEGREES. APPEARS COMFORTABLE WITH CPAP MASK IN PLACE.
--- NOTE | 2017-08-27 03:50 | NUR ---
IN BED, EYES CLOSED CPAP MASK IN PLACE. APPEARS COMFORTABLE.
[2017-08-27 05:47] LABS: BASOPHILS 0.4 % (0-2); EOSINOPHILS 1.9 % (0-7); HEMATOCRIT 38.1 % (42.0-54.0); HEMOGLOBIN 12.6 g/dL (13.5-17.5); IMMATURE GRANULOCYTES 0.4 % (0-5); LYMPHOCYTES 16.6 % (15-50); MCHC 33.1 g/dL (31.0-37.0); MCV 93.8 fL (80.0-100.0); MEAN PLATELET VOLUME 10.4 fL (7.4-10.4); NEUTROPHILS 74.7 % (40-80); PLATELET COUNT 349 10x3/uL (130-400); RBC 4.06 10x6/uL (4.20-6.10); RDW 12.4 % (11.5-14.5)
[2017-08-27 06:05] LABS: ANION GAP 15.7 mmol/L (8-16); CALCIUM 9.3 mg/dL (8.5-10.1); CARBON DIOXIDE 27.4 mmol/L (21.0-32.0); CREATININE - SERUM 1.7 mg/dL (0.6-1.3); POTASSIUM - SERUM 4.1 mmol/L (3.5-5.1)
--- NOTE | 2017-08-27 06:40 | NUR ---
FSBS 144 PER LAB DRAW. GAVE PATIENT SCHEDULED PO PROTONIX, D/C'D HIS CPAP PER HIS REQUEST AND EMPLACED HIS NASAL CANNULA @ 3L O2 FLOW.
--- NOTE | 2017-08-27 08:15 | NUR ---
PT RESTING IN BED WITH EYES OPEN EATING BREAKFAST CALL LIGHT IN REACH NO PROBLEMS WILL MONITER
[2017-08-27 08:40] VITALS: BP 145/65
--- NOTE | 2017-08-27 10:03 | NUR ---
PATIENT ADMITTED TO REHAB FROM ACUTE FLOOR. PATIENT PCP IS DR. VALDES AND USES [facility] FOR HIS PHARMACY NEEDS. HE HAS NO DME AT HOME AND HAS NEVER HAD HOME HEALTH. WILL CONTINUE TO FOLLOW WITH PATIENT
[2017-08-27 10:47] VITALS: Ht 182.9 cm; Wt 149.7 kg
--- NOTE | 2017-08-27 15:27 | NUR ---
PT UP IN WHEELCHAIR IN ROOM CALL LIGHT IN REACH NO PROBLEMS WILL MONITER
--- NOTE | 2017-08-27 16:37 | NUR ---
PT RESTING IN ROOM, DENIES NEEDS.
--- NOTE | 2017-08-27 19:20 | NUR ---
PATIENT AWAKE, IN BED. O2 PER N/C @ 3L FLOW. DELIVERED HIS MENU TO COMPLETE. 2 FAMILY VISITORS PRESENT.
--- NOTE | 2017-08-27 20:25 | NUR ---
REMAINS IN BED, AWAKE. DENIES CURRENT NEEDS. FAMILY MENTIONED HE WANTS A SNACK. WENT TO ROOM AND EXPLAINED THAT HIS BLOOD SUGARS HAVE BEEN >300 SINCE AFTER BREAKFAST AND THAT IT WOULD NOT BE APPROPRIATE TO HAVE A SNACK WITHOUT KNOWING WHAT HIS BLOOD SUGAR IS. TOLD HIM I WILL TAKE IT SHORTLY WHEN I ASSESS HIM.
[2017-08-27 20:53] VITALS: BP 153/61
--- NOTE | 2017-08-27 21:05 | NUR ---
ASSESSMENT AND HS MEDS COMPLETE. FSBS 311. PATIENT HAS NO SLIDING SCALE ORDERS. GAVE HIM SCHEDULED 50 UNITS OF LANTUS INSULIN SC IN RIGHT UPPER ABDOMEN. ASSISTED HIM HIGHER UP IN BED. APPLIED BUTT PASTE TO MILDLY ROUGHENED SKIN TO CENTRAL BUTTOCKS AND GLUTEAL CLEFT.
--- NOTE | 2017-08-27 22:00 | NUR ---
IN BED, REMAINS AWAKE. DENIES NEEDS.
--- NOTE | 2017-08-28 00:05 | NUR ---
RESTING IN BED, WITH HOB UP [address] SINCE 2209.
--- NOTE | 2017-08-28 04:15 | NUR ---
IN BED, EYES CLOSED. CONTINUES WITH CPAP MASK IN PLACE. APPEARS COMFORTABLE. EMPTIED 1425 ML FROM PETTY BEDSIDE DRAINAGE BAG.
--- NOTE | 2017-08-28 07:26 | NUR ---
LYING IN BED EYES CLOSED RESTING. APPROPRIATE RISE AND FALL OF CHEST. NO S/SX OF RESPIRATORY DISTRESS. CALL LIGHT AND PERSONAL ITEMS WITHIN REACH, BED LOW, SR X3, ALARM ON. WILL CONTINUE TO MONITOR
--- NOTE | 2017-08-28 10:22 | NUR ---
SITTING UP IN BED WATCHING TV. DENIES ANY NEEDS OR PAIN. ALERT AND ORIENTED X4. CALL LIGHT AND PERSONAL ITEMS WITHIN REACH, BED ALARM ON, BED IN LOWEST POSITION. WILL CONTINUE TO MONITOR
[2017-08-28 10:26] VITALS: BP 146/70
--- NOTE | 2017-08-28 12:14 | NUR ---
ASSISTED THERAPY IN TRANSFERRING PT FROM W/C TO TOILET. MAX ASSIST X2. CLEANED PT UP D/T LARGE BM USING THE LIFT TO ASSIST PT TO STAND. PT TOLERATED WELL. SITTING UP IN W/C EATING LUNCH. CALL LIGHT AND PERSONAL ITEMS WITHIN REACH.
--- NOTE | 2017-08-28 13:59 | NUR ---
SITTING UP IN WC.CL IN REACH.
--- NOTE | 2017-08-28 16:36 | NUR ---
LYING IN BED EYES CLOSED RESTING. NO S/SX OF RESPIRATORY DISTRESS. CALL LIGHT AND PERSONAL ITEMS WITHIN REACH, BED LOW,SR X2. WILL CONTINUE TO MONITOR
--- NOTE | 2017-08-28 18:52 | NUR ---
SITTING UP IN BED RESTING, DENIES ANY NEEDS OR PAIN. CALL LIGHT AND PERSONAL ITEMS WITHIN REACH, BED LOW. WILL CONTINUE TO MONITOR
--- NOTE | 2017-08-28 21:10 | NUR ---
REST IN BED AND WATCH FOOTBALL GAME.
--- NOTE | 2017-08-28 22:35 | NUR ---
PT. IN BED WITH HOB UP FOR COMFORT AND IS WATCHING TV. CALL LIGHT WITHIN REACH.
--- NOTE | 2017-08-28 23:35 | NUR ---
PUT ON CPAP FOR PT.
[2017-08-29 01:03] VITALS: BP 163/78
--- NOTE | 2017-08-29 04:31 | NUR ---
REST IN BED, CALL LIGHT IN REACH.
--- NOTE | 2017-08-29 08:00 | NUR ---
PATIENT ALERT/ORIENTATED. BED ALARM ON WHILE PATIENT IN BED. CALL LIGHT WITHIN REACH. USING CALL LIGHT FOR NEEDS
[2017-08-29 09:03] VITALS: BP 125/74
--- NOTE | 2017-08-29 11:35 | NUR ---
SON IN ROOM WITH PATIENT. GLUCOSE LEVEL 238. NO SLIDING SCALE INSULIN ORDER.
--- NOTE | 2017-08-29 15:17 | NUR ---
PATIENT IS A TOTAL ASST. HELPED TO BE REARRANGED IN BED ASST OF TWO.
--- NOTE | 2017-08-29 18:00 | NUR ---
PETTY CATH BAG HAS LEXIE, BLOOD TINGED URINE IN BAG. PETTY CATH EMPTIED 1,000CC OUTPUT. NO BLOOD CLOTS SEEN. PETTY CATH IRRAGATED WITHOUT DIFFICULTY. CLEAR YELLOW URINE BACK.
[2017-08-29 19:51] VITALS: BP 154/7
--- NOTE | 2017-08-29 21:07 | NUR ---
NEW ORDER FOR RESTORL GIVEN BY ONCALL DR. BRANDI SMITH. REASSED URINE AND LOOKS MUCH BETTER. STILL HAS SLIGHT REDNESS.
--- NOTE | 2017-08-30 04:50 | NUR ---
REPORTED BY OFFGOING NURSE THAT DAUGHTER UPSET AND PT HAD HEMATURIA. UPON ASSESSING HEMATURIA NOTICED THAT PETTY BETWEEN STAT LOCK AND PENIS WAS TAUT AND HE WAS SITTING AT 90 DEGREES. ALSO, TUBING WAS CLOUDY. REPLACE STAT LOCK CLOSER TO THE PENIS AND REPLACED PETTY BAG TO MAKE ASSESSING URINE EASIER. PETTY BAG HAD HEMATURIA THAT WAS CLEAR AND RED. ENCOURAGED PT TO DRINK WATER TO HELP FLUSH BLADDER. VERBALIZED UNDERSTANDING. LUANAL UPSET THAT HE WAS NOT TAKING HIS SLEEPING PILL AND WAS'NT GETTING AND SLEEP. EXPLAINED TAHT I WOULD CALL MD AND SEE IF HE WANTED TO CONT..
[2017-08-30 06:52] LABS: HEMOGLOBIN A1C 9.1 % (4.8-6.0)
[2017-08-30 09:22] VITALS: BP 122/66
--- NOTE | 2017-08-30 10:00 | NUR ---
PT AM MEDS ADMINISTERED. PT DENIES NEEDS. WCTM.
--- NOTE | 2017-08-30 12:07 | RHP ---
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 HISTORY OF PRESENT ILLNESS: The patient is admitted to the inpatient rehab for stroke with lacunar type with the right periventricular white matter changes associated with it. He was hospitalized at [facility] in June for this, but received no acute rehab following the incident, and was discharged home. He was recently admitted to [facility] on 08/18 for fatigue, pain, and swelling on his left lower extremity. His initial blood sugar was 693. He is an 87-year-old gentleman with a history of diabetes, remote aortic valve replacement, congestive heart failure. The patient's family states he had a remote NV as well. He was treated for CHF during his hospital stay and a CVA and was discharged on increased dose of Lasix. Family stated that he had marked diuresis from this which made him very fatigued. He could not get up as he was urinating all the time. He was noted to have some redness of his left lower extremity above the ankle, complains of edema and generalized fatigue in the ED, complained of tenderness to his left lower extremity, was evaluated by general surgery during his acute hospital stay. He was found to have venous insufficiency, cellulitis. He also has venous stasis insufficiency. He has been receiving IV antibiotics during his acute hospital stay. He is also receiving O2 per nasal cannula during his acute hospital stay and is currently on 3 liters. He wears CPAP at home for his obstructive sleep apnea. He had progressive debilitation, is currently unable to ambulate other than from the bed to chair. He lives alone and states he has gotten weaker and weaker since his stroke. He is currently set up to max assist for ADLs and max assist to total assist for mobility. He would like to return home as prior level of functioning is better if possible. COMORBIDITIES: Include venous stasis cellulitis, subacute cerebrovascular accident, congestive heart failure, azotemia, uncontrolled diabetes, hyperlipidemia, hypertension, thrombophlebitis, physical deconditioning, venous insufficiency, and debility. PAST MEDICAL HISTORY: Significant for COPD, CHF, NV, aortic valve replacement, hyperlipidemia, obesity, diabetes mellitus, obstructive sleep apnea, gastroesophageal reflux disease, recent CVA, and arthritis. PAST SURGICAL HISTORY: Includes cholecystectomy, left total knee replacement, right rotator cuff repair, and also valve replacement. ALLERGIES: IV CONTRAST AND INDOMETHACIN. CURRENT MEDICATIONS: Include polyethylene glycol 17 grams in 8 ounce of water daily, spironolactone 25 mg daily, Zocor 40 mg at bedtime, Lyrica 75 mg b.i.d., potassium chloride 10 mEq daily, Protonix 40 mg daily, multivitamin 1 daily, metoprolol 25 mg b.i.d., Tradjenta 5 mg daily. He is on insulin 20 units subcutaneous in the a.m. and 24 units subcutaneous in the p.m. with regular insulin. He is also on Lantus 50 units b.i.d., Levsin 0.125 mg t.i.d. p.r.n., and Bumex 1 mg b.i.d. and also Aggrenox 1 cap b.i.d. HISTORY AND PHYSICAL [id number] KEYANNA HOPE HABITS: No current alcohol or tobacco use. FAMILY HISTORY: Noncontributory. SOCIAL HISTORY: The patient hopes to return back home and get back to his prior level of function and better if possible. REVIEW OF SYSTEMS: GENERAL: He does complain of some weakness or fatigue. HEENT: Denies cold, cough, or congestion. CARDIOVASCULAR: Denies chest pain. PHYSICAL EXAMINATION: VITAL SIGNS: Stable, afebrile. GENERAL: An obese gentleman in no acute distress upon exam. HEENT: Normocephalic and atraumatic. Mucosa moist. NECK: Supple, no lymphadenopathy. LUNGS: Clear at this time. HEART: He does have a mild systolic click on his CV exam. ABDOMEN: Benign. EXTREMITIES: He does have changes consistent with venous stasis, with discoloration of the skin and some redness noted. NEUROLOGIC: He does have decreased sensation and fatigue and also weakness on exam. LABORATORY DATA: His white count was 8.0, H&H of 12.6 and 38.1, and platelet count was 349. Sodium is 138, potassium 4.1, BUN and creatinine of 37 and 1.7, blood sugars are noted to be 144. ASSESSMENT: This is an 87-year-old gentleman admitted to the rehab with a working diagnosis of cerebrovascular accident involving the lacunar area in his right and also with right periventricular white matter which has resulted in debility and also hyperglycemia. The patient has potential to make improvement. We instituted the following multidisciplinary therapies including to, but not limited to physical, occupational, respiratory, speech, nutritional services, prosthetics, and orthotics. Given his complex condition and risk for more complications, rehabilitation services cannot be provided at a lower level of care such as a fci facility. PLAN: 1. Admit to [facility] rehab for intensive inpatient therapy to include the following disciplines: A. Physical therapy to improve gait, all transfer skills, and bed mobility to a modified independent level. B. Occupational therapy of daily living to a modified independent level. C. Case management to assist with discharge planning and placement options. D. Nutrition to assist with nutritional needs. E. Rehabilitation nursing to assist in monitoring the patient's underlying medical conditions and to assist with any type of bowel or bladder management. 2. The patient's current medications and medical care will be continued. 3. The patient will be placed on standard fall precautions. 4. The patient's estimated length of stay is approximately 7-10 days. 5. Discuss this patient during care team staff meeting this week, but hopefully get him back home to his prior level of function and better if possible. HISTORY AND PHYSICAL [id number] KEYANNA HOPE TRANSINT:[id number] Voice Confirmation ID: [id number] DOCUMENT ID: [id number] LEANDRO notes whether there has been none or any medical/functional change since admission: - NO CHANGE SINCE PRESCREEN. LEANDRO attests patient continues to be appropriate for IRF: - CONTINUES TO BE APPROPRIATE. BETH RODRIGUEZ MD at 1207 CC: [id number] DICTATION DATE: 08/27/17 0812 [employer]: 08/27/17 0950 ADM IN [facility] [address] [place] [address]
--- NOTE | 2017-08-30 12:15 | NUR ---
PT EATING LUNCH, DENIES NEEDS. WCTM.
[2017-08-30 16:46] LABS: APPEARANCE HAZY (CLEAR); COLOR BROWN (YELLOW); NITRITE NEGATIVE (NEGATIVE)
[2017-08-30 16:47] LABS: BILIRUBIN NEGATIVE (NEGATIVE); GLUCOSE NEGATIVE (NEGATIVE); KETONE NEGATIVE (NEGATIVE); PROTEIN 1+ mg/dL (NEGATIVE); RED CELLS - URINE >50 /hpf (0-5); UROBILINOGEN NORMAL (NORMAL); WHITE CELLS - URINE 0-5 /hpf (0-5)
[2017-08-30 16:48] LABS: BACTERIA FEW /hpf (NONE SEEN)
--- NOTE | 2017-08-30 18:25 | NUR ---
PT RESTING IN BED, DENIES NEEDS. WCTM.
--- NOTE | 2017-08-30 19:20 | NUR ---
PM ROUNDS MADE, PT WATCHING TV, INFORMED PT THAT I WILL BE BACK SHORTLY TO DO ASSESSMENT, PT VERBALIZES UNDERSTANDING, DENIES NEEDS AT THIS TIME, BED IN LOW POSITION, SIDE RAILS X 3, CALL LIGHT IN REACH, BED ALARM ON AND WORKING PROPERLY
--- NOTE | 2017-08-30 20:15 | NUR ---
PT WATCHING TV, FRESH H20 SERVED, INFORMED PT THAT I WILL BE BACK SHORTLY TO ADM MEDS AND DO ASSESSMENT, PT VERBALIZES UNDERSTANDING
--- NOTE | 2017-08-30 20:54 | NUR ---
ASSESSMENT PER FLOW SHEET, PETTY CATH INTACT DRAINING BLOOD TINGED URINE, 02 AT 3L, FSBS 242, ADM 2100 MEDS PO PER MD ORDERS, SEE EMAR, INFORMED PT THAT I WILL ADM LANTUS WHEN RECEIVED FROM PHARMACY, PT VERBALIZES UNDERSTANDING, CHANGED PT'S SHIRT, PT DENIES NEEDS OR PAIN, BED IN LOW POSITION, SIDE RAILS X 3, CALL LIGHT IN REACH, BED ALARM ON AND WORKING PROPERLY
--- NOTE | 2017-08-30 21:59 | NUR ---
PT AWAKE, ADM LANTUS PER MD ORDERS, VERIFIED PER THIS RN AND TAILA HASSAN RN, CHARGE NURSE, INFORMED TALIA HASSAN RN WHAT FSBS WAS AND HE STATES "GO AHEAD AND GIVE HIM THE LANTUS, BUT MAKE SURE HE EATS HIS SNACK", ALFONSO HART PROVIDED AND OPENED, PT REFUSES MILK
--- NOTE | 2017-08-30 22:20 | NUR ---
PT CONSUMED 100% OF ALFONSO CRACKERS, PT READY FOR BED, ASSISTED PT WITH CPAP, PT DENIES FURTHER NEEDS, BED IN LOW POSITION, SIDE RAILS X 2, CALL LIGHT IN REACH, BED ALARM ON AND WORKING PROPERLY
[2017-08-30 22:57] VITALS: BP 140/68
--- NOTE | 2017-08-31 00:06 | NUR ---
PT RESTING WITH EYES CLOSED, RESP QUIET, NO DISTRESS NOTED, LEFT UNDISTURBED AT THIS TIME
--- NOTE | 2017-08-31 02:07 | NUR ---
PT RESTING WITH EYES CLOSED, RESP QUIET, NO DISTRESS NOTED, LEFT UNDISTURBED AT THIS TIME
--- NOTE | 2017-08-31 04:39 | NUR ---
PT AWAKE, PT REQUESTED AND I RAISED HOB UP FOR PT, PT DENIES FURTHER NEEDS OR PAIN AT THIS TIME
--- NOTE | 2017-08-31 06:41 | NUR ---
PT RESTING WITH EYES CLOSED, AROUSES TO SOFT VERBAL STIMULATION, FSBS 130, ADM 0600 MED PO PER MD ORDERS, SEE EMAR, KEE PETTY, PT DENIES NEEDS OR PAIN AT THIS TIME
--- NOTE | 2017-08-31 07:00 | NUR ---
SHIFT REPORT TO DAY SHIFT
--- NOTE | 2017-08-31 07:50 | NUR ---
SITTING UP IN BED RESTING. ASSISTED WITH BREAKFAST SET UP. DENIES ANY NEEDS OR PAIN. PETTY PATENT AND FREE OF KINKS, ALERT AND ORIENTED X4. CALL LIGHT AND PERSONAL ITEMS WITHIN REACH, BED LOW AND ALARM ON. WILL CONTINUE TO MONITOR
[2017-08-31 08:00] VITALS: BP 142/61
--- NOTE | 2017-08-31 09:37 | NUR ---
Nutrition Follow Up: Pt is eating 100% meal avg on a diabetic diet. +BM 08/28/17. Labs reviewed. Meds noted including Bumex. Rec continue current diet. RD following.
--- NOTE | 2017-08-31 10:14 | NUR ---
ADMINISTERD MORNING MEDS WITHOUT DIFFICULTY. SITTING AT SINK PERFORMING ORAL HYGIENE AND FACIAL GROOMING. OCCUPATIONAL THERAPY (AGUS) IN ROOM WITH PT. DENIES ANY NEEDS OR PAIN. NO S/SX OF RESPIRATORY DISTRESS. WILL CONTINUE TO MONITOR
--- NOTE | 2017-08-31 12:10 | NUR ---
SITTING UP IN W/C EATING LUNCH. DENIES ANY NEEDS OR PAIN. NO S/SX OF RESPIRATORY DISTRESS. W/C BRAKES LOCKED, CALL LIGHT AND PERSONAL ITEMS WITHIN REACH, ALARM ON. WILL CONTINUE TO MONITOR
--- NOTE | 2017-08-31 14:50 | NUR ---
IN THERAPY GYM WITH PHYSICAL THERAPY. NO S/SX OF RESPIRATORY DISTRESS. WILL CONTINUE TO MONITOR
--- NOTE | 2017-08-31 16:50 | NUR ---
SITTING UP IN BED WATCHING TV AND EATING A SNACK. DENIES ANY PAIN OR NEEDS. NO S/SX OF ACUTE DISTRESS NOTED. CALL LIGHT AND WATER WITHIN REACH, BED LOW AND ALARM ON. WILL CONTINUE TO MONITOR
--- NOTE | 2017-08-31 19:25 | NUR ---
SHIFT HANDOFF COMPLETE. MULTIPLE FAMILY VISITORS AT BEDSIDE. ASSISTED HIGHER UP IN BED FOR COMFORT WITH ASSIST FROM DAY SHIFT NURSE. CONTINUES ON O2 PER N/C @ 3L FLOW. PETTY CATH PATENT TO BSD BAG WITH LIGHT LEXIE URINE.
--- NOTE | 2017-08-31 20:00 | NUR ---
IN BED, DROWSY. FAMILY MEMBERS JUST DDEPARTING.
[2017-08-31 21:15] VITALS: BP 127/61
--- NOTE | 2017-08-31 21:15 | NUR ---
ASSESSMENT AND HS MEDS COMPLETE. EMPLACED CPAP NASAL MASK AND CHIN STRAP AFTER FILLING DISTILLED WATER RESERVOIR TO INDICATOR LINE. INITIATED CPAP THERAPY.
--- NOTE | 2017-08-31 23:05 | NUR ---
ASSISTED PATIENT TO TURN TO LEFT SIDELYING POSITION. PERVIOUSLY HE HAD TOLD ME HE WAS UNABLE TO SLEEP COMFORTABLY ON HIS SIDE.
--- NOTE | 2017-09-01 02:00 | NUR ---
PATIENT IN BED, EYES CLOSED. CONTINUES ON CPAP. NOW LYING SUPINE. APPEARS COMFORTABLE.
[2017-09-01 06:13] LABS: BASOPHILS 0.6 % (0-2); EOSINOPHILS 1.7 % (0-7); HEMOGLOBIN 12.3 g/dL (13.5-17.5); IMMATURE GRANULOCYTES 0.4 % (0-5); LYMPHOCYTES 18.3 % (15-50); MCHC 32.4 g/dL (31.0-37.0); MCV 95.7 fL (80.0-100.0); MEAN PLATELET VOLUME 10.4 fL (7.4-10.4); PLATELET COUNT 369 10x3/uL (130-400); RBC 3.97 10x6/uL (4.20-6.10); RDW 12.5 % (11.5-14.5); WBC 8.2 10x3/uL (4.8-10.8)
[2017-09-01 06:33] LABS: ANION GAP 11.8 mmol/L (8-16); CALCIUM 9.5 mg/dL (8.5-10.1); CARBON DIOXIDE 31.9 mmol/L (21.0-32.0); CREATININE - SERUM 1.8 mg/dL (0.6-1.3); POTASSIUM - SERUM 4.7 mmol/L (3.5-5.1)
--- NOTE | 2017-09-01 08:15 | NUR ---
PT RESTING IN BED WITH EYES OPEN CALL LIGHT IN REACH WILL MONITER
[2017-09-01 08:19] VITALS: BP 116/58
--- NOTE | 2017-09-01 16:21 | NUR ---
CARE TEAM MEETING: PATIENT PROGRESSING IN THERAPY. WILL CONTINUE TO FOLLOW WITH PATIENT. TENATIVE DISCHARGE DATE IS 09/17/17.
--- NOTE | 2017-09-01 17:51 | NUR ---
PT RESTING IN BED WITH EYES OPEN CALL LIGHT IN REACH DAUGHTER AT BEDSIDE WILL MONITER
--- NOTE | 2017-09-01 19:10 | NUR ---
PM ROUNDS MADE, PT WATCHING TV, INFORMED PT THAT I WILL RETURN SHORTLY TO DO ASSESSMENT, PT VERBALIZES UNDERSTANDING, DENIES NEEDS AT THIS TIME
[2017-09-01 20:00] VITALS: BP 147/63
--- NOTE | 2017-09-01 20:00 | NUR ---
ASSESSMENT PER FLOW SHEET, VS OBTAINED, PT REPORTS BM TODAY, PETTY CATH INTACT DRAINING DARK YELLOW URINE, PT ENC TO DRINK PLENTY OF FLUIDS, FOOD STAINS NOTED ON BLANKET, BLANKET AND SHEET CHANGED, PT DENIES NEEDS OR PAIN AT THIS TIME, BED IN LOW POSITION, SIDE RAILS X 3, CALL LIGHT IN REACH, BED ALARM ON AND WORKING PROPERLY
--- NOTE | 2017-09-01 21:29 | NUR ---
PT AWAKE, OBTAINED FSBS, ADM 2100 MEDS PER MD ORDERS, SEE EMAR, SNACK PROVIDED, PT DENIES FURTHER NEEDS OR PAIN AT THIS TIME, BED IN LOW POSITION, SIDE RAILS X 3, CALL LIGHT IN REACH, BED ALARM ON AND WORKING PROPERLY WORKING
--- NOTE | 2017-09-01 22:10 | NUR ---
PT LEAD IOS DEVELOPER LIGHT, PT READY FOR BED, ASSISTED PT WITH CPAP MACHING, PT DENIES FURTHER NEEDS OR PAIN AT THIS TIME, BED IN LOW POSITION, SIDE RAILS X 3, CALL LIGHT IN REACH, BED ALARM ON AND WORKING PROPERLY
--- NOTE | 2017-09-02 00:13 | NUR ---
PT RESTING WITH EYES CLOSED, RESP QUIET, NO DISTRESS NOTED, LEFT UNDISTURBED AT THIS TIME, BED IN LOW POSITION, SIDE RAILS X 3, CALL LIGHT IN REACH, BED ALARM ON AND WORKING PROPERLY
--- NOTE | 2017-09-02 02:53 | NUR ---
PT PANEL BUILDER LIGHT, PT REQUESTED THAT I COVER UP HIS FEET, FEET COVERED, PT DENIES FURTHER NEEDS OR PAIN, BED IN LOW POSITION, SIDE RAILS X 3, CALL LIGHT IN REACH, BED ALARM ON AND WORKING PROPERLY
--- NOTE | 2017-09-02 03:10 | NUR ---
PT PRIOR AUTHORIZATION TECHNICIAN LIGHT, CPAP REMOVED, O2 PLACED BACK ON, PT REQUESTED AND SERVED ALFONSO CRACKERS AND DIET COLA, PT INST TO USE CALL LIGHT WHEN READY FOR CPAP AND LIGHT TURNED OFF, PT DENIES FURTHER NEEDS OR PAIN AT THIS TIME
--- NOTE | 2017-09-02 05:23 | NUR ---
PT RESTING WITH EYES CLOSED, AROUSES TO SOFT VERBAL STIMULATION, ADM 0600 MED PER MD ORDERS, SEE EMAR, WITH FRESH H20, PT DENIES NEEDS OR PAIN AT THIS TIME
--- NOTE | 2017-09-02 07:34 | NUR ---
SITTING UP IN BED WATCHING MORNING NEWS. DENIES ANY NEED OR PAIN. ALERT AND ORIENTED X4. NO S/SX OF ACUTE DISTRESS. CALL LIGHT AND PERSONAL ITEMS WITHIN REACH, BED LOW AND ALARM ON, SR X2. WILL CONTINUE TO MONITOR
[2017-09-02 08:26] VITALS: BP 165/80
--- NOTE | 2017-09-02 09:43 | NUR ---
ADMINISTERED MORNING MEDS WITHOUT DIFFICULTY. DENIES ANY NEEDS OR PAIN. ALERT AND ORIENTED X4. NO S/SX OF ACUTE DISTRESS. CALL LIGHT AND WATER WITHIN REACH, BED LOW AND ALARM ON, SR X3. WILL CONTINUE TO MONITOR
--- NOTE | 2017-09-02 11:11 | NUR ---
ASSISTED KEITH WITH TRANSFERRING PT USING ARJO FROM BED TO SHOWER CHAIR. KEITH PAREKH ASSISTED WITH PERSONAL HYGIENE AND ADL'S. PT TOLERATED WELL. WILL CONTINUE TO MONITOR
--- NOTE | 2017-09-02 14:32 | NUR ---
ASSISTED TO RESTROOM WITH MAX X2. ORIENTED TO RESTROOM CALL LIGHT. NO S/SX OF ACUTE DISTRESS.
--- NOTE | 2017-09-02 17:42 | NUR ---
SITTING UP IN BED VISITING WITH FAMILY. DENIES ANY NEEDS OR PAIN. NO S/SX OF ACUTE DISTRESS. CALL LIGHT AND PERSONAL ITEMS WITHIN REACH, BED LOW AND ALARM ON. WILL CONTINUE TO MONITOR
--- NOTE | 2017-09-02 19:40 | NUR ---
RESTING IN BED WATCHING TV NO C/O PAIN OR DISCOMFORT AT THIS TIME.
--- NOTE | 2017-09-02 19:46 | NUR ---
PT. IN BED WITH HOB UP FOR COMFORT. EYES CLOSED AND RESP. EVEN. PT. AWAKENS EASILY AND HAS NO VOICED NEEDS. CALL LIGHT WITHIN REACH.
--- NOTE | 2017-09-02 20:44 | NUR ---
RESTING IN BED WATCHING TV DENIES PAIN OR DISCOMFORT AT THIS TIME.
[2017-09-02 21:14] VITALS: BP 162/79
--- NOTE | 2017-09-02 23:49 | NUR ---
RESTING IN BED EYES CLOSED NO S/S OF PAIN OR DISCOMFORT NOTED.
[2017-09-03 07:08] LABS: BASOPHILS 0.6 % (0-2); EOSINOPHILS 2.2 % (0-7); HEMATOCRIT 37.3 % (42.0-54.0); HEMOGLOBIN 12.2 g/dL (13.5-17.5); IMMATURE GRANULOCYTES 0.4 % (0-5); LYMPHOCYTES 17.8 % (15-50); MCHC 32.7 g/dL (31.0-37.0); MCV 94.7 fL (80.0-100.0); MEAN PLATELET VOLUME 10.6 fL (7.4-10.4); MONOCYTES 6.9 % (2-11); NEUTROPHILS 72.1 % (40-80); PLATELET COUNT 352 10x3/uL (130-400); RBC 3.94 10x6/uL (4.20-6.10); RDW 12.6 % (11.5-14.5); WBC 8.1 10x3/uL (4.8-10.8)
--- NOTE | 2017-09-03 07:36 | NUR ---
RESTING QUIETLY IN BED. CALL LIGHT IN REACH. BED IN LOWEST POSITION.
[2017-09-03 07:40] LABS: ANION GAP 13.2 mmol/L (8-16); CALCIUM 9.6 mg/dL (8.5-10.1); CARBON DIOXIDE 28.7 mmol/L (21.0-32.0); CREATININE - SERUM 1.7 mg/dL (0.6-1.3); POTASSIUM - SERUM 3.9 mmol/L (3.5-5.1)
[2017-09-03 08:01] VITALS: BP 157/64
--- NOTE | 2017-09-03 10:02 | NUR ---
PATIENT IN REHAB ROOM. WORKING WITH PHYSICAL THERAPIST. DENIES ANY PAIN/DISC AT THIS TIME
--- NOTE | 2017-09-03 11:36 | NUR ---
GLUCOSE LEVEL 343. SCHEDULED LANTUS AND SCHEDULED REGULAR INSULIN
--- NOTE | 2017-09-03 13:03 | NUR ---
PRN MIRALAX GIVEN FOR NO BOWEL MOVEMENT LAST THREE DAYS PER PATIENT REQUEST
--- NOTE | 2017-09-03 14:32 | NUR ---
PATIENT HELPED BACK TO BED AFTER THERAPY. TOTAL ASST OF TWO WITH ARJO LIFT.
--- NOTE | 2017-09-03 16:50 | NUR ---
GLUCOSE LEVEL 401. CHARGE NURSE NOTIFED. SCHEDULED INSULIN GIVEN
--- NOTE | 2017-09-03 19:39 | NUR ---
RECIEVED UP IN BED WITH 02@2.5 LITERS PER N/C. RESP. EVEN AND UNLABORED. EYES OPEN, GLASSES ON AND WATCHING TV. DENIES ANY NEEDS AOR PAIN AT THIS TIME. F/C INTACT WITH CLEAR YELLOW URINE DRAINING TO BEDSIDE DRAINAGE SYSTEM. CALL LIGHT AND OVERBED TABLE IN REACH.
[2017-09-03 20:50] VITALS: BP 152/76
--- NOTE | 2017-09-03 21:37 | NUR ---
RESTING IN BED WITH EYES CLOSED. NO S/S OF DISTRESS OBSERVED. EASILY AROUSES WITH VERBAL STIMULI. O2@ 2.5 LITERS PER N/C IN PLACE WITH HOB ELEVATED. CALL LIGHT AND OVERBED TABLE IN REACH.
--- NOTE | 2017-09-03 23:17 | NUR ---
RESTING IN BED WITH EYES CLOSED.CPAP IN PLACE. HOB ELEVATED. CALL LIGHT IN REACH.
--- NOTE | 2017-09-04 02:46 | NUR ---
RESTING IN BED WITH EYES CLOSED. NO S/S OF DISTRESS OBSERVED. CALL LIGHT IN REACH.
--- NOTE | 2017-09-04 07:45 | NUR ---
SITTING UP IN BED READING NEWSPAPER. DENIES ANY NEEDS OR PAIN. ALERT AND ORIENTED X4. NO S/SX OF ACUTE DISTRESS. CALL LIGHT AND PERSONAL ITEMS WITHIN REACH, BED LOW AND ALARM ON. WILL CONTINUE TO MONITOR
[2017-09-04 08:05] VITALS: BP 140/74
--- NOTE | 2017-09-04 09:20 | NUR ---
IN THERAPY GYM WITH [facility] OCCUPATIONAL THERAPY. ADMINISTERED MORNING MEDS WHOLE WITHOUT DIFFICULTY. FSBS 235. NO S/SX OF ACUTE DISTRESS NOTED. WILL CONTINUE TO MONITOR
--- NOTE | 2017-09-04 12:56 | NUR ---
SITTING UP IN W/C VISITING WITH FAMILY. DENIES ANY NEEDS OR PAIN. CALL LIGHT AND PERSONAL ITEMS WITHIN REACH, W/C BRAKES LOCKED.WILL CONTINUE TO MONITOR
--- NOTE | 2017-09-04 15:30 | NUR ---
LYING IN BED AT 45 DEGREES EYES CLOSED RESTING. APPROPRIATE RISE AND FALL OF CHEST. NO S/SX OF RESPIRATORY DISTRESS NOTED. CALL LIGHT AND PERSONAL ITEMS WITHIN REACH, BED LOW AND ALARM ON. WILL CONTINUE TO MONITOR
--- NOTE | 2017-09-04 18:31 | NUR ---
SITTING UP IN BED READING NEWSPAPER. DENIES ANY NEEDS OR PAIN. PETTY CATH EMPTIED 1600ML. CALL LIGHT AND PERSONAL ITEMS WITHIN REACH, BED LOW AND ALARM ON. WILL CONTINUE TO MONITOR
[2017-09-04 19:20] VITALS: BP 136/60
--- NOTE | 2017-09-04 19:20 | NUR ---
RECIEVED UP IN BED WITH EYES CLOSED. EASILY AROUSES WITH VERBAL STIMULI. HOB ELEVATED AND 02@ 1.5 WITH 96% SAT..F/C PATENT WITH CLEAR YELLOW URINE [id number] TO BEDSIDE DRAINAGE SYSTEM. EDEMA TO LEFT HAND AND GENERAL EDEMA TO LOWER EXTREMITIES. FEET DRY AND SCALEY. LOTION APPLIED. CALL LIGHT AND OVERBED TABLE IN REACH.
--- NOTE | 2017-09-04 21:52 | NUR ---
RESTING IN BED QWITH EYES CLOSED AT THIS TIME. CLOTHING CHANGED AND TURNED AND REPOSITIONED. CALMOSEPTINE APPLIED TO BUTTOCKS AND PETTY CARE PROVIDED EARLIER. CPAP ON AND FUNCTIONING PROPERLY. CALL LIGHT IN REACH.
--- NOTE | 2017-09-05 00:54 | NUR ---
RESTING IN BED WITH EYES CLOSED. NO S/SOF DISTRESS OBSERVED. CALL LIGHT IN REACH.
--- NOTE | 2017-09-05 03:55 | NUR ---
RESTING IN BED WITH EYES CLOSED. C/O BEING THIRSTY EARLIER. EDUCATED ON BUMEX AND THE SIDE EFFECTS. VOICED UNDERSTANDING. CALL LIGHT IN REACH.
--- NOTE | 2017-09-05 08:20 | NUR ---
PT AM MEDS ADMINISTERED. PT DENIES NEEDS. WCTM.
--- NOTE | 2017-09-05 10:00 | NUR ---
PT ASSISTED TO CHANGE OUT OF GOWN INTO SWEATPANTS AND TSHIRT. PT SITTING UP IN WC AT THIS TIME. WCTM.
[2017-09-05 12:12] VITALS: BP 127/70
--- NOTE | 2017-09-05 12:12 | NUR ---
PT EATING LUNHC, DENIES NEEDS. WCTM.
--- NOTE | 2017-09-05 14:28 | NUR ---
PT ASSISTED TO WALK DOWN TO THERAPY GYM AND BACK ON PT REQUEST. PT BACK IN ROOM RESTING AT THIS TIME. KISHAN.
[2017-09-05 19:22] VITALS: BP 156/60
--- NOTE | 2017-09-05 19:22 | NUR ---
RECIEVED UP IN BED WITH EYES OPEN AND TV ON. PLEASANT AND TALKATIVE. ON ROOM AIR AT THIS TIME WITH 97% O2 SAT.. RESP. EVEN AND UNLABORES. F/C PATENT WITH LEXIE COLOR URINE DRAINING TO BED SIDE DRAINAGE SYSTEM. CALL LIGHT AND OVER BED TABLE IN REACH.
--- NOTE | 2017-09-06 00:03 | NUR ---
RESTING IN BED WITH EYES CLOSED. NO S/S OF DISTRESS OBSERVED. CPAP IN PLACE AND FUNCTIONING PROPERLY. CALL LIGHT IN REACH.
--- NOTE | 2017-09-06 03:21 | NUR ---
RESTING IN BED WITH EYES CLOSED. NO S/S OF DISTRESS OBSERVED. 2OOML OF URINE EMPTIED FROM PETTY BAG EARLIER. PULLED CPAP OFF AND DOES'NT WANT IT ON AT THIS TIME.CALL LIGHT IN REACH.
[2017-09-06 06:16] LABS: BASOPHILS 0.4 % (0-2); EOSINOPHILS 2.2 % (0-7); HEMATOCRIT 37.6 % (42.0-54.0); HEMOGLOBIN 12.1 g/dL (13.5-17.5); IMMATURE GRANULOCYTES 0.4 % (0-5); MCH 30.5 pg (26.0-34.0); MCHC 32.2 g/dL (31.0-37.0); MCV 94.7 fL (80.0-100.0); MEAN PLATELET VOLUME 10.3 fL (7.4-10.4); MONOCYTES 7.3 % (2-11); NEUTROPHILS 71.7 % (40-80); PLATELET COUNT 306 10x3/uL (130-400); RBC 3.97 10x6/uL (4.20-6.10); RDW 12.6 % (11.5-14.5); WBC 8.2 10x3/uL (4.8-10.8)
[2017-09-06 06:33] LABS: ANION GAP 12.7 mmol/L (8-16); CARBON DIOXIDE 30.2 mmol/L (21.0-32.0); CREATININE - SERUM 1.6 mg/dL (0.6-1.3); POTASSIUM - SERUM 3.9 mmol/L (3.5-5.1)
[2017-09-06 07:30] VITALS: BP 130/64
--- NOTE | 2017-09-06 08:00 | NUR ---
PATIENT ALERT/ORIENT X4. USING CALL LIGHT FOR NEEDS. CALL LIGHT WITHIN REACH
--- NOTE | 2017-09-06 09:44 | NUR ---
PATIENT HELPED INTO BATHROOM. MAX ASST OF TWO FROM BED INTO WHEELCHAIR. MAX ASST FROM WHEELCHAIR ONTO TOILET.
--- NOTE | 2017-09-06 11:22 | NUR ---
GLUCOSE LEVEL 301. NO SLIDING SCALE COVERAGE. SCHEDULED HUMILIN AND SCHEDULED LANUS GIVEN
--- NOTE | 2017-09-06 15:00 | NUR ---
OCCUPATIONAL THERPIST GIVING PATIENT A SHOWER. MAX ASST WITH SHOWER.
--- NOTE | 2017-09-06 16:44 | NUR ---
GLUCOSE LEVEL 261. SCHEDULED REGULAR INSULIN GIVEN
--- NOTE | 2017-09-06 18:31 | NUR ---
PETTY CATH EMPTIED. 1,200 CC OF CLEAR YELLOW URINE GIVEN.
--- NOTE | 2017-09-06 18:37 | NUR ---
RESTING QUIETLY IN BED. CALL LIGHT IN REACH. BED IN LOWEST POSITION
--- NOTE | 2017-09-06 19:55 | NUR ---
PT. IN BED WITH HOB UP FOR COMFORT AND IS WATCHING TV. ASSESSMENT COMPLETED. NO VOICED NEEDS AT THIS TIME. PETTY TO BSD WITHOUT PROBLEMS AND HIS CALL LIGHT IS WITHIN REACH.
[2017-09-06 20:41] VITALS: BP 188/82
--- NOTE | 2017-09-06 23:09 | NUR ---
PT. IN BED WITH HOB UP FOR COMFOR AND IS WEARING HIS NASAL C-PAP EQUIPMENT WITHOUT ANY ALARMS. EYES CLOSED AND RESP. EVEN. PETTY TO BSD WITHOUT PROBLEMS AND HIS CALL LIGHT IS WITHIN REACH.
--- NOTE | 2017-09-07 03:35 | NUR ---
PT. IN BED WITH HOB UP FOR COMFORT AND IS WEARING HIS NASAL C-PAP WITHOUT ANY ALARMS. EYES CLOSED AND RESP. EVEN WITH CALL LIGHT WITHIN REACH. PETTY TO BSD WITHOUT ANY PROBLEMS.
--- NOTE | 2017-09-07 07:37 | NUR ---
SITTING UP IN BED EATING BREAKFAST. ALERT AND ORIENTED X4. NO S/SX OF DISTRESS NOTED. CALL LIGHT AND PERSONAL ITEMS WITHIN REACH, BED LOW AND ALARM ON. WILL CONTINUE TO MONITOR
[2017-09-07 07:58] VITALS: BP 122/54
--- NOTE | 2017-09-07 12:39 | NUR ---
Nutrition Follow Up: Pt is eating 100% meal avg on a diabetic diet. +BM 09/06/17. Meds noted including Bumex, MV. Labs reviewed. Rec continue current diet. RD following.
--- NOTE | 2017-09-07 13:51 | NUR ---
RESTING QUIETLY.CL IN REACH.DENIES NEEDS.
--- NOTE | 2017-09-07 14:07 | NUR ---
SITTING UP IN W/C WATCHING TV. DENIES ANY NEEDS OR PAIN. NO S/SX OF ACUTE DISTRESS. CALL LIGHT AND PERSONAL ITEMS WITHIN REACH, W/C BRAKES LOCKED AND BOX ALARM ON. WILL CONTINUE TO MONITOR
--- NOTE | 2017-09-07 15:41 | NUR ---
LYING IN BED EYES CLOSED RESTING QUIETLY. NO S/SX OF RESPIRATORY DISTRESS NOTED. CALL LIGHT AND PERSONAL ITEMS WITHIN REACH, BED LOW AND SR X3. WILL CONTINUE TO MONITOR
--- NOTE | 2017-09-07 19:25 | NUR ---
BEDSIDE SHIFT REPORT COMPLETE. PATIENT IN BED, AWAKE. DENIES NEEDS.
--- NOTE | 2017-09-07 21:35 | NUR ---
FSBS 321. GAVE PATIENT SCHEDULED 50 UNITS OF LASTUS INSULIN SC IN RIGHT UPPER ABDOMEN. PATIENT HAS NO SLIDING SCALE ORDERS.
[2017-09-07 21:45] VITALS: BP 156/70
--- NOTE | 2017-09-07 22:10 | NUR ---
ASSISTED PATIENT TO EMPLACE CPAP MASK AND STARTED CPAP THERAPY.
--- NOTE | 2017-09-07 23:40 | NUR ---
PATIENT C/O RESTLESSNESS AN DISCOMFORT IN BILAT LOWER LEGS. APPLIED WARMED BLANKET HE HAS NO ORDERS FOR PAIN OR RESLTESS LEGS.
--- NOTE | 2017-09-08 02:00 | NUR ---
CONTINUES IN BED ON CPAP PER NASAL MASK.
--- NOTE | 2017-09-08 03:50 | NUR ---
ANSWERING HIS CALL LIGHT, I FOUND PATIENT IN BED WITH BOTH LEGS HANGING OFF THE BED. SAYS HE AWOKE, TOOK OFF HIS CPAP MASK AND HEADSTRAP AND WAS ATTEMPTING TO GET UP OOB SHE DREAMT IT WAS TIME TO BE UP FOR BREAKFAST AND THERAPY WHEN HE BECAME FULLY AWARE OF HIS CIRCUMSTANCES AND CALLED FOR ASSIST BACK DEANGELO BED. GOT HIS LEGS BACK INTO BED AND WITH ASSIST FROM Lamar HUNTER LPN ASSISTED PATIENT TO REPOSITION HIGHER IN BED. SANDRA BED ALARM REMAINS ARMED. REASSEMBLED PATIENT'S CPAP MASK AND ASSISTED HIM TO RE-DON CHIN STRAP AND NASAL MASK. STARTED CPAP THERAPY AGAIN. CHECKED HIS PULSEOX AFTER THE EXERTION OF MOVING IN BED AND ALTHOUGH HE IS A BIT WINDED, HIS PULSEOX IS 98% ON RA WITH PULSE OF 87.
--- NOTE | 2017-09-08 06:00 | NUR ---
RESTING QUIETLY IN BED. CPAP NOW OFF.
[2017-09-08 07:06] LABS: BASOPHILS 0.2 % (0-2); EOSINOPHILS 1.7 % (0-7); HEMATOCRIT 35.8 % (42.0-54.0); HEMOGLOBIN 11.7 g/dL (13.5-17.5); IMMATURE GRANULOCYTES 0.4 % (0-5); LYMPHOCYTES 13.4 % (15-50); MCH 30.8 pg (26.0-34.0); MCHC 32.7 g/dL (31.0-37.0); MCV 94.2 fL (80.0-100.0); MEAN PLATELET VOLUME 10.6 fL (7.4-10.4); MONOCYTES 6.4 % (2-11); NEUTROPHILS 77.9 % (40-80); PLATELET COUNT 281 10x3/uL (130-400); RDW 12.8 % (11.5-14.5); WBC 9.3 10x3/uL (4.8-10.8)
[2017-09-08 07:25] LABS: ANION GAP 11.2 mmol/L (8-16); CARBON DIOXIDE 29.6 mmol/L (21.0-32.0); CREATININE - SERUM 1.5 mg/dL (0.6-1.3); POTASSIUM - SERUM 3.8 mmol/L (3.5-5.1)
[2017-09-08 08:26] VITALS: BP 132/65
--- NOTE | 2017-09-08 08:30 | NUR ---
PT AM MEDS ADMINISTERED. PT RESTING IN BED AT THIS TIME AND DENIES FURTHER NEEDS. WCTM.
--- NOTE | 2017-09-08 11:48 | NUR ---
GLUCOSE LEVEL 232. SCHEDULED LANTUS AND REGULAR INSULIN
--- NOTE | 2017-09-08 15:09 | NUR ---
CARE TEAM MEETING: PATIENT PROGRESSING WELL IN THERAPY. TENIVE DISCHARGE DATE IS 09/17/17. PATIENT WILL BE RA AT NEXT MEETING. WILL CONTINUE TO FOLLOW WITH PATIENT. NO FAMILY AT BEDSIDE.
--- NOTE | 2017-09-08 16:14 | NUR ---
GLUCOSE LEVEL 182. SCHEDULED REGULAR INSULIN GIVEN
[2017-09-08 19:29] VITALS: BP 157/63
--- NOTE | 2017-09-08 19:29 | NUR ---
RESTING IN BED WITH EYES OPEN AND TV ON. PLEASANT AND TALKATIVE. HOB ELEVATED. DENIES ANY PAIN OR NEEDS AT THIS TIME. CALL LIGHT IN REACH.
--- NOTE | 2017-09-08 21:14 | NUR ---
RESTING IN BED WITH EYES CLOSED. REFUSES TO PUT CPAAP ON AT THIS TIME. STATES "IT'S TO EARLY". ASKED HIM TO CALL ME WHEN HE WAS READY TO PUT IT ON. PT AGREES. CALL LIGHT IN REACH. F/C PATENT WITH CLEAR YELLOW URINE DRAINING TO BEDSIDE DRAINAGE SYSTEM.
--- NOTE | 2017-09-09 02:23 | NUR ---
RESTING IN BED WITH EYES CLOSED, N O S/S OF DISTRESS OBSERVED. CPAP IN PLACE A ND HOB ELEVATED. CALL LIGHT IN REACH.
--- NOTE | 2017-09-09 06:57 | NUR ---
RESTING IN BED WITH EYES CLOSED. NO S/S OF DISTRESS OBSERVED. CALL LIGHT IN REACH.
--- NOTE | 2017-09-09 07:30 | NUR ---
SITTING UP IN BED EATING BREAKFAST. DENIES ANY NEEDS OR PAIN. ALERT AND ORIENTED X4. NO S/SX OF ACUTE DISTRESS NOTED. CALL LIGHT AND PERSONAL ITEMS WITHIN REACH, BED LOW, SR X3. WILL CONTINUE TO MONITOR
[2017-09-09 08:17] VITALS: BP 144/75
--- NOTE | 2017-09-09 09:49 | NUR ---
ADMINISTERED MORNING MEDS WHOLE WITHOUT DIFFICULTY. ASSISTED PT OOB WITH SBA TO W/C USING WALKER. PT IN UP AT SINK PERFORMING FACIAL GROOMING AND ORAL CARE. WILL CONTINUE TO MONITOR
--- NOTE | 2017-09-09 12:27 | NUR ---
SITTING UP IN W/C EATING LUNCH. DENIES ANY NEEDS OR PAIN. CALL LIGHT WITHIN REACH, W/C BRAKES LOCKED. WILL CONTINUE TO MONITOR
--- NOTE | 2017-09-09 14:23 | NUR ---
SITTING UP IN W/C VISITING WITH FAMILY. DENIES ANY NEEDS OR PAIN. NO S/SX OF ACUTE DISTRESS NOTED. CALL LIGHT AND PERSONAL ITEMS WITHIN REACH, BED LOW AND ALARM ON. WILL CONTINUE TO MONITOR
--- NOTE | 2017-09-09 17:39 | NUR ---
EATING SUPPER IN ROOM
--- NOTE | 2017-09-09 17:56 | NUR ---
SITTING UP IN BED EATING DINNER. DENIES ANY NEEDS OR PAIN. CALL LIGHT WITHIN REACH, BED LOW AND ALARM ON. WILL CONTINUE TO MONITOR
[2017-09-09 19:21] VITALS: BP 145/69
--- NOTE | 2017-09-09 19:21 | NUR ---
RECIEVED UP IN BED WITH EYES OPEN AND TV ON. HOB ELEVATED. PLEASANT AND COOPERATIVE. F/C PATENT WITH CLEAR YELLOW URINE DRAINING TO BEDSIDE DRAINAGE SYSTEM. CALL LIGHT AND OVERBED TABLE IN REACH.
--- NOTE | 2017-09-09 21:31 | NUR ---
RESTING IN BED WITH EYES OPEN. C/O ROOMMATE HAVING TV UP LOUD ALL DAY. ROOMMATED TV NOT LOUD AT THIS TIME. DOES'NT APPEAR TO BE VERY HAPPY THAT HE HAS A ROOMMATE. EXPLAINED THAT HE COULD SPEAK WITH MECHANIC OR SPEAK WITH PACKAGE REINSPECTOR. DECLINED AT THIS TIME. ASSISTED WITH PUTTING CPAP ON. CALL LIGHT AND OVERBED TABLE IN REACH.
--- NOTE | 2017-09-10 00:03 | NUR ---
RESTING IN BED WITH EYES CLOSED AT THIS TIME. CPAP IN PLACE AND FUNCTIONING PROPERLY. CALL [facility] AND OVERBED TABLE IN REACH.
--- NOTE | 2017-09-10 04:43 | NUR ---
RESTING IN RECLINER PER PT REQUEST. F/C INTACT AND DRAINING CLEAR YELLOW URINE TO BEDSIDE DRAINAGE SYSTEM. CPAP IN PLACE AND FUNCTIONING PROPERLY. CALL LIGHT AND OVERBED TABLE IN REACH.
[2017-09-10 06:22] LABS: HEMATOCRIT 35.3 % (42.0-54.0); HEMOGLOBIN 11.8 g/dL (13.5-17.5); LYMPHOCYTES 19.4 % (15-50); MCH 30.4 pg (26.0-34.0); MCHC 33.4 g/dL (31.0-37.0); MEAN PLATELET VOLUME 10.2 fL (7.4-10.4); NEUTROPHILS 72.6 % (40-80); PLATELET COUNT 257 10x3/uL (130-400); RBC 3.88 10x6/uL (4.20-6.10); RDW 12.6 % (11.5-14.5); WBC 7.8 10x3/uL (4.8-10.8)
[2017-09-10 06:37] LABS: ANION GAP 11.8 mmol/L (8-16); CALCIUM 9.3 mg/dL (8.5-10.1); CARBON DIOXIDE 28.9 mmol/L (21.0-32.0); CREATININE - SERUM 1.6 mg/dL (0.6-1.3); POTASSIUM - SERUM 3.7 mmol/L (3.5-5.1)
--- NOTE | 2017-09-10 08:08 | NUR ---
PT UP AT BEDSIDE EATING BREAKFAST TOLERATING WELL WILL MONITER
[2017-09-10 09:00] VITALS: BP 142/60
--- NOTE | 2017-09-10 10:57 | NUR ---
PT RESTING IN BED WITH EYES OPEN CALL LIGHT IN REACH WILL MONITER
--- NOTE | 2017-09-10 18:34 | NUR ---
PT RESTING IN BED DAUGHTER IN ROOM CALL LIGHT IN REACH WILL MONITER
[2017-09-10 19:30] VITALS: BP 132/60
--- NOTE | 2017-09-10 19:30 | NUR ---
RECIEVED UP IN BED WITH EYES OPEN AND TV ON. PLEASANT AND COOPERATIVE.ALERT AND ORIENTEED X4. DENIES ANY PAIN OR NEEDS. F/C PATENT AND DRAINING CLEAR YELLOW URINE TO BEDSIDE DRAINAGE SYSTEM. CALL LIGHT AND OVERBED TABLE IN REACH.
[2017-09-10 20:58] VITALS: BP 132/60
--- NOTE | 2017-09-11 03:42 | NUR ---
RESTING IN BED WITH EYES CLSOED AND CPAP IN PLACE. HOB ELEVATED. F/C INTACT WITH CLEAR YELLOW URINE DRAINING TO BEDSIDE DRAINAGE SYSTEM. CALL LIGHT AND OVERBED TABLE IN REACH.
--- NOTE | 2017-09-11 06:27 | NUR ---
RESTING IN BED WITH EYES CLOSED AT THIS TIME. CPAP IN PLACE. RESP EVEN AND UNLABORED. F/C PATENT AND DRAINING CLEAR YELLOW URINE TO BSD SYSTEM. 2300 OUTPUT THIS AM. CALL LIGHT AND OVERBED TABLE IN REACH.
--- NOTE | 2017-09-11 07:40 | NUR ---
PT IS RESTING IN BED WITH EYES OPEN. ALERT AND ORIENTED X . DENIES ACUTE PAIN OR DISCOMFORT. NO NEEDS VOICED. VSS. EPTTY CATH IS PATENT AND DRAINING TO A GRAVITY BAG. SR'S ARE UP X 2 IN BED CALL LIGHT AND BEDSIDE TABLE ARE WITHIN EASY REACH.
--- NOTE | 2017-09-11 08:00 | NUR ---
SITTING UP IN BED ALERT;CL IN REACH.EATING BREAKFAST.
--- NOTE | 2017-09-11 12:00 | NUR ---
PT RESTING IN BED WITH EYES OPEN CALL LIGHT IN REACH WILL MONITER
[2017-09-11 19:39] VITALS: BP 150/71
--- NOTE | 2017-09-11 20:00 | NUR ---
PT. IN BED WITH HOB UP FOR COMFORT AND IS WATCHING TV. NO VOICED NEEDS. PETTY TO BSD WITHOUT PROBLEMS. CALL LIGHT WITHIN REACH.
--- NOTE | 2017-09-11 21:17 | NUR ---
PT IS RESTING IN BED WATCHING TV. HS MEDS GIVEN. NO NEEDS VOICED. PT STATES HE WILL EAT ONE OF HIS GRANOLA BARS FOR HIS HS SNACK.
--- NOTE | 2017-09-11 23:44 | NUR ---
RESTING QUIETLY IN BED WITH EYES CLOSED.. CPAP ON.
--- NOTE | 2017-09-12 03:00 | NUR ---
RESTING IN BED WITH EYES CLOSED.
--- NOTE | 2017-09-12 05:22 | NUR ---
PT RESTING IN BED WITH EYES CLOSED.
--- NOTE | 2017-09-12 08:00 | NUR ---
SHIFT ASSMT COMPLETED.DENIES NEEDS.SITTING UP IN WC.BREAKFAST TRAY GIVEN.
[2017-09-12 08:28] VITALS: BP 179/88
--- NOTE | 2017-09-12 12:00 | NUR ---
SITTING UP FOR LUNCH.
--- NOTE | 2017-09-12 16:00 | NUR ---
AMB IN [facility] WITH SNT X2 TODAY AND SALMA WELL.
--- NOTE | 2017-09-12 19:21 | NUR ---
PT VOICED COMPLAINT OF BEING TIRED TO BEING IN THE BED. ASSISTED TO GET UP TO WC WITH SBA. VSS. PETTY CATH PATENT AND DRAINING TO A GRAVITY BAG. NO FURTHER NEEDS VOICED. SR'S ARE UP X 2 WHILE IN BED. CALL LIGHT AND BEDSIDE TABLE ARE WITHIN EASY REACH.
--- NOTE | 2017-09-12 19:45 | NUR ---
PT. IN BED WITH HOB UP FOR COMFORT AND IS WATCHING TV. PETTY TO BSD WITHOUT PROBLEMS. CALL LIGHT WITHIN REACH.
[2017-09-12 21:14] VITALS: BP 163/84
--- NOTE | 2017-09-12 22:59 | NUR ---
PT RESTING QUIETLY IN BED WITH EYES CLOSED. RESPS ARE EVEN AND UNLABORED. NO ACUTE DISTRESS NOTED. CPAP ON.
--- NOTE | 2017-09-13 01:00 | NUR ---
ASSUMED CARE FROM HARRISON SWARTZ. PT. IN BED WITH HOB FLAT WITH NASAL CPAP ON. PETTY CLAMPED AT THIS TIME FOR BLADDER TRAINING. EYES CLOSED AND RESP. EVEN WITH CALL LIGHT WITHIN REACH.
--- NOTE | 2017-09-13 03:15 | NUR ---
PT. IN BED WITH HOB SLIGHTLY ELEVATED. NASAL CPAP IN PLACE. EYES CLOSED AND RESP. EVEN. PETTY TO BSD WITHOUT PROBLEMS. BLADDER TRAINING CONTINUES. CALL LIGHT WITHIN REACH.
[2017-09-13 04:54] LABS: BASOPHILS 0.3 % (0-2); EOSINOPHILS 3.3 % (0-7); HEMATOCRIT 36.6 % (42.0-54.0); HEMOGLOBIN 11.9 g/dL (13.5-17.5); IMMATURE GRANULOCYTES 0.3 % (0-5); LYMPHOCYTES 20.7 % (15-50); MCH 30.2 pg (26.0-34.0); MCHC 32.5 g/dL (31.0-37.0); MCV 92.9 fL (80.0-100.0); MEAN PLATELET VOLUME 10.2 fL (7.4-10.4); MONOCYTES 8.9 % (2-11); NEUTROPHILS 66.5 % (40-80); PLATELET COUNT 277 10x3/uL (130-400); RBC 3.94 10x6/uL (4.20-6.10); RDW 12.9 % (11.5-14.5); WBC 7.8 10x3/uL (4.8-10.8)
[2017-09-13 05:07] LABS: ANION GAP 10.3 mmol/L (8-16); CALCIUM 9.2 mg/dL (8.5-10.1); CARBON DIOXIDE 30.1 mmol/L (21.0-32.0); CREATININE - SERUM 1.6 mg/dL (0.6-1.3); POTASSIUM - SERUM 3.4 mmol/L (3.5-5.1)
[2017-09-13 07:59] VITALS: BP 145/63
--- NOTE | 2017-09-13 08:00 | NUR ---
AM ROUNDS: PATIENT IS ALERT/ORIENT X4. CALL LIGHT WITHIN REACH. C-PAP ON. VOICES NO NEEDS AT THIS TIME
--- NOTE | 2017-09-13 10:00 | NUR ---
PATIENT IN REHAB ROOM. WORKING WITH PHYSICAL THERAPIST. DENIES ANY PAIN/DISC AT THIS TIME. PETTY CATH UNCLAMPED. IN PROCESS OF BLADDER TRAINING.
--- NOTE | 2017-09-13 12:05 | NUR ---
PETTY CATH UNCLAMED AND CLAMED AGAIN FOR BLADDER TRAINING.
--- NOTE | 2017-09-13 15:08 | NUR ---
PATIENT TRANSFERED FROM WHEELCHAIR TO TOILET WITH MAX ASST. PATIENT NEEDS HELP WITH PULLING DOWN AND PULLING UP PANTS
--- NOTE | 2017-09-13 17:02 | NUR ---
PATIENT HELPED UP FROM BED TO WHEELCHAIR AT BEDSIDE. MOD ASST WITH WHEELED WALKER. GLUCOSE LEVEL 171. SCHEDULED INSULIN GIVEN
[2017-09-13 19:14] VITALS: BP 132/70
--- NOTE | 2017-09-13 19:50 | NUR ---
RECIEVED UP IN CHAIR BESIDE THE BED. F/C PATENT WITH CLEAR YELLOW URINE DRAINING TO BSD SYSTEM. CALL LIGHT IN REACH. ALERT AND ORIENTED. PLEASANT AND COOPERATIVE. DENIES ANY PAIN OR NEEDS.
--- NOTE | 2017-09-13 23:33 | NUR ---
RESTING IN BED WITH EYES SLOSED. NO S/S OF DISTRESS OBSERVEED. HOB ELEVATED WITH CPAP IN PLACE AND FUNCTIONAL. CONTINUE TO DO BLADDER TRAINING PER ORDERS. CALL LIGHT AND OVERBED TABLE IN REACH.
--- NOTE | 2017-09-14 04:00 | NUR ---
RESTING IN BED WITH EYES CLOSED. NO S/S OF DISTRESS OBSERVED. CALL LIGHT IN REACH.
--- NOTE | 2017-09-14 06:31 | NUR ---
F/C D/C'D THIS AM WITH TIP INTACT. 1900CC OUTPUT IN BSD SYSTEM. PT REMOVED CPAP. URINAL PLACED AT BEDSIDE. CALL LIGHT IN REACH. DENIES ANY NEEDS AT THISTIME.
[2017-09-14 08:00] VITALS: BP 132/76
--- NOTE | 2017-09-14 08:00 | NUR ---
EATING BREAKFAST IN ROOM. DENIES NEEDS. CALL LIGHT IN REACH
--- NOTE | 2017-09-14 08:42 | NUR ---
PT RESTING IN BED WITH EYES OPEN CALL LIGHT IN REACH WILL MONITER
--- NOTE | 2017-09-14 10:10 | NUR ---
Nutrition Follow Up: Pt is eating 100% meal avg on a diabetic diet. +BM 09/13/17. Labs reviewed - Glucose elevated. Meds noted including Bumex, MV. Rec continue current diet. RD following.
--- NOTE | 2017-09-14 15:47 | NUR ---
PT UP IN WHEELCHAIR IN ROOM TOLERATING WELL WILL MONITER CALL LIGHT IN REACH
--- NOTE | 2017-09-14 18:33 | NUR ---
PT RESTING IN BED WITH EYES OPEN CALL LIGHT IN REACH NO PROBLEMS WILL MONITER
[2017-09-14 19:25] VITALS: BP 103/64
--- NOTE | 2017-09-14 19:40 | NUR ---
RECIEVED UP IN W/C. PLEASANT AND COOPERATIVE. ALERT AND ORIENTED X4. PETTY D/C THIS AM . NO DIFFICULTY URINATING. GENERALIZED EDEMA TO LOWER EXTREMITIES. CALL LIGHT AND OVERBED TABLE IN REACH.
--- NOTE | 2017-09-14 23:50 | NUR ---
RESTING IN BED WITH EYES CLSOED. NO S/S OF DISTRESS OBSERVED. CPAP IN PLACE. CALL LIGHT IN REACH.
--- NOTE | 2017-09-15 01:53 | NUR ---
RESTING IN BED WITH EYES CLOSED. NO S/S OF DISTRESS OBSERVED. INCONTINENT EPISODE EARLIER. CPAP IN PLACE AND FUNCTIONING PROPERLY. CALL LIGHT AND OVERBED TABLE IN REACH.
[2017-09-15 06:46] LABS: BASOPHILS 0.3 % (0-2); EOSINOPHILS 2.8 % (0-7); HEMATOCRIT 37.5 % (42.0-54.0); HEMOGLOBIN 12.1 g/dL (13.5-17.5); IMMATURE GRANULOCYTES 0.2 % (0-5); LYMPHOCYTES 18.9 % (15-50); MCH 30.3 pg (26.0-34.0); MCHC 32.3 g/dL (31.0-37.0); MCV 93.8 fL (80.0-100.0); MONOCYTES 7.9 % (2-11); NEUTROPHILS 69.9 % (40-80); PLATELET COUNT 284 10x3/uL (130-400); WBC 8.6 10x3/uL (4.8-10.8)
[2017-09-15 07:11] LABS: ANION GAP 12.2 mmol/L (8-16); CALCIUM 9.6 mg/dL (8.5-10.1); CARBON DIOXIDE 30.7 mmol/L (21.0-32.0); CREATININE - SERUM 1.8 mg/dL (0.6-1.3); POTASSIUM - SERUM 3.9 mmol/L (3.5-5.1)
[2017-09-15 08:00] VITALS: BP 157/77
--- NOTE | 2017-09-15 08:10 | NUR ---
PT RESTING IN BED WITH EYES OPEN CALL LIGHT IN REACH WILL MONITER PT EATING BREAKFAST
--- NOTE | 2017-09-15 12:15 | NUR ---
PT UP IN WHEELCHAIR EATING LUNCH CALL LIGHT IN REACH WILL MONITER
--- NOTE | 2017-09-15 15:23 | NUR ---
CARE TEAM MEETING: PATIENT AND DAUGHTERS ATTENDED MEETING. TENATIVE DISCHARGE DATE IS 09/17/17. PATIENT RAUL NEED A BAREARIC WALKER WHEN DISCHARGED. QUESTIONS AND CONCERNS WERE ADDRESSED. WILL CONTINUE TO FOLLOW WITH PATIENT.
--- NOTE | 2017-09-15 15:56 | NUR ---
RESTING QUIETLY IN BED.CL IN REACH.
--- NOTE | 2017-09-15 19:30 | NUR ---
BEDSIDE SHIFT REPORTING COMPLETE. PATIENT SITTING UP IN W/C AT BEDSIDE WATCHING TV. DENIES NEEDS.
[2017-09-15 21:25] VITALS: BP 138/65
--- NOTE | 2017-09-15 21:25 | NUR ---
CONTINUES UP, NO SITTING ON BEDSIDE. WAS JUST ASSISTED UP TO BR TO URINATE. ASSESSMENT AND HS MEDS COMPLETE. FSBS 162. GAVE PATIENT SCHEDULED LANTUS 50 UNITS SC IN RIGHT UPPER ABDOMEN. GAVE HIM HS SNACK OF 3 ALFONSO CRAX SQUARES, BUT PATIENT REFUSED MILK OR JUICE WITH THE CRACKERS.
--- NOTE | 2017-09-15 22:45 | NUR ---
RESTING IN BED ON LEFT SIDE WITH CPAP IN PLACE. APPEARS COMFORTABLE.
--- NOTE | 2017-09-15 23:21 | NUR ---
Received report from [facility].
--- NOTE | 2017-09-16 00:03 | NUR ---
Patient in bed, supine, with CPAP on. Respirations unlabored, eyes closed, deemed to be sleeping. No signs of distress.
--- NOTE | 2017-09-16 00:48 | NUR ---
Assisted up to BR using walker. Legs, ankles, and feet extremely swollen, requires assistance to lower legs from bed to floor. Partial bedlinen change due to small amount of dribbling incontinence. Assisted back to bed, CPAP reattached. Side rails up x 3 and rhina bed alarm on. Denies pain or discomfort at this time.
--- NOTE | 2017-09-16 01:34 | NUR ---
Patient put call lima on, states he thinks his blood sugar is dropping. BG checked and = 92. Dropped from 162 @HS. Given snack of chocolate pudding and pkg of honey grahams.
--- NOTE | 2017-09-16 02:05 | NUR ---
Patient states he is feeling better. Assisted up to BR using his walker. Incontinent of urine, clothing changed, bedlinens changed again. Did void large amount into toilet as well, slow and stiff moving. Resettled into bed, assisted in reattaching CPAP. Will continue to monitor.
--- NOTE | 2017-09-16 04:00 | NUR ---
CPAP on, can hear patient lightly snoring, no signs of distress.
--- NOTE | 2017-09-16 06:14 | NUR ---
Patient had been up to BR again with assist using walker. Now patient states he is feeling shaky and feels like his blood sugar is dropping. BG checked = 50. Given pudding, orange juice and honey lupillo packet.
--- NOTE | 2017-09-16 07:45 | NUR ---
ASSISTED FROM BED TO W/C SBA. FSBS 191. DENIES ANY NEEDS OR PAIN. ALERT AND ORIENTED X4. NO S/SX OF ACUTE DISTRESS. CALL LIGHT WITHIN REACH, W/C BRAKES LOCKED. WILL CONTINUE TO MONITOR
[2017-09-16 08:00] VITALS: BP 148/76
--- NOTE | 2017-09-16 10:32 | NUR ---
SITTING UP IN W/C VISITING WITH FAMILY AND FRIENDS. DENIES ANY NEEDS OR PAIN. NO S/SX OF ACUTE DISTRESS. CALL LIGHT WITHIN REACH, W/C BRAKES LOCKED. WILL CONTINUE TO MONITOR
--- NOTE | 2017-09-16 11:04 | NUR ---
ORDER SENT TO [facility] FOR A BARIATRIC WALKER TO BE DELIVERED TO PATIENT.
--- NOTE | 2017-09-16 14:04 | NUR ---
LYING IN BED RESTING QUIETLY. APPROPRIATE RISE AND FALL OF CHEST. NO S.SX OF RESPIRATORY DISTRESS NOTED. CALL LIGHT AND PERSONAL ITEMS WITHIN REACH, BED LOW AND ALARM ON. WILL CONTINUE TO MONITOR
--- NOTE | 2017-09-16 15:00 | NUR ---
SITTING UP IN CHAIR.CL IN REACH.DENIES NEEDS.
--- NOTE | 2017-09-16 17:06 | NUR ---
SITTING UP IN W/C WATCHING TV. DENIES ANY NEEDS OR PAIN. NO S/SX OF ACUTE DISTRESS NOTED. CALL LIGHT AND WATER WITHIN REACH, W/C BRAKED LOCKED AND BOX ALARM ON. WILL CONTINUE TO MONITOR
--- NOTE | 2017-09-16 19:20 | NUR ---
BEDSIDE SHIFT REPORT COMPLETE. PATIENT SITTING UP ON BEDSIDE. DENIES CURRENT NEEDS.
--- NOTE | 2017-09-16 20:10 | NUR ---
CONTINUES UP AT BEDSIDE. NOW IN W/C. DENIES NEEDS.
[2017-09-16 21:25] VITALS: BP 157/70
--- NOTE | 2017-09-16 21:25 | NUR ---
FSBS 158. GAVE PATIENT DOUBLE SNACK OF 8 OZS ORANGE JUICE AND 6 ALFONSO CRAX SQUARES A PRECAUTION, DUE TO BLOOD SUGAR DROPPING TO LOW LEVELS OVERNIGHT IF HS FSBS IS NOT ABOVE 250.
--- NOTE | 2017-09-16 22:25 | NUR ---
PATIENT TOILETED IN THE PAST HOUR WITH FASHION MERCHANDISER ASSIST, AND IS NOW IN BED, RESTING QUIETLY WITH CPAP NASAL MASK IN PLACE.
--- NOTE | 2017-09-16 23:45 | NUR ---
RESTING IN BED, WITH CPAP NASAL MASK IN PLACE. NO DISTRESS EVIDENT.
--- NOTE | 2017-09-17 03:15 | NUR ---
CALLED FOR ASSIT UP TO BR TO URINATE. ASSISTED HIM TO CHANGE HIS SWEATPANTS DUE TO WETNESS FROM INCONTINENCE IN BED. ALSO CHANGED HIS PINK BEDPAD. THEN RETURNED TO HIM TO BED.
--- NOTE | 2017-09-17 04:30 | NUR ---
RESTING IN BED, EYES CLOSED. NNO EVIDENT DISTRESS.
[2017-09-17 06:34] LABS: BASOPHILS 0.7 % (0-2); EOSINOPHILS 2.5 % (0-7); HEMATOCRIT 36.3 % (42.0-54.0); IMMATURE GRANULOCYTES 0.4 % (0-5); LYMPHOCYTES 22.6 % (15-50); MCH 30.8 pg (26.0-34.0); MCHC 33.1 g/dL (31.0-37.0); MCV 93.1 fL (80.0-100.0); MEAN PLATELET VOLUME 10.1 fL (7.4-10.4); MONOCYTES 9.1 % (2-11); NEUTROPHILS 64.7 % (40-80); PLATELET COUNT 287 10x3/uL (130-400); RDW 13.1 % (11.5-14.5); WBC 7.7 10x3/uL (4.8-10.8)
[2017-09-17 06:46] LABS: ANION GAP 12.4 mmol/L (8-16); CALCIUM 9.3 mg/dL (8.5-10.1); CARBON DIOXIDE 28.1 mmol/L (21.0-32.0); CREATININE - SERUM 1.7 mg/dL (0.6-1.3); POTASSIUM - SERUM 3.5 mmol/L (3.5-5.1)
[2017-09-17 08:08] VITALS: BP 136/60
--- NOTE | 2017-09-17 08:15 | NUR ---
PT UP IN WHEELCHAIR IN ROOM EATING BREAKFAST TOLERATING WELL
--- NOTE | 2017-09-17 09:28 | NUR ---
PATIENT DISCHARGING HOME WITH FAMILY. [facility] WILL PROVIDE THERAPY AT HOME. [facility] DELIVERED A ROLLING WALKER TO PATIENT.DR. VALDES 09/21/17 @ 9:20. PATIENT CHOICE FORM FOR HOME HEALTH AND [facility] FORM SIGNED, EXPLAINED AND FILED IN CHART.DISCHARGE INSTRUCTIONS AND [facility] FORM HAS BEEN FAXED TO [facility] AND FAXED TO HOME HEALTH WITH CONFORMATION RECIEVED
--- NOTE | 2017-09-17 11:56 | NUR ---
PT DISCHARGED TO HOME VIA WHEELCHAIR WITH SON DISCHARGE MEDS AND DISCHARGE SUMMARY REVIEWED WITH PT CALLED [facility] MEDS TO [facility]
--- NOTE | 2017-11-04 10:20 | DS ---
PATIENT:KEYANNA HOPE :34 MEDICAL RECORD: [id number] DISCHARGE SUMMARY ADMISSION DATE: 08/26/17 DISCHARGE DATE: 09/17/17 This is a discharge dated 09/17/2017 from inpatient rehab. PRIMARY DIAGNOSIS: Decreased functional ability and ability to provide activities of daily living status post cerebrovascular accident. SECONDARY DIAGNOSES: 1. History of aortic valve replacement. 2. Uncontrolled diabetes. 3. Congestive heart failure. 4. Venous insufficiency. 5. Left lower extremity cellulitis. 6. Obstructive sleep apnea, on CPAP. 7. Obesity. 8. Hypokalemia. 9. Gastroesophageal reflux disease. 10. Hyperlipidemia. 11. Hypertension. HOSPITAL COURSE: Full H&P is located elsewhere on the chart on this 87-year-old male who was admitted to inpatient rehab for physical therapy and occupational therapy to improve gait, transfer skills, bed mobility, and activities of daily living to a modified independent level. He was evaluated by PT and OT and their plans of care were followed. He was seen by speech therapy as well. He required residential care for observation and assessment and medication administration. Fingerstick blood sugars were monitored throughout his hospital stay with appropriate adjustment in medications as needed. He did have a Tam catheter initially, underwent bladder training with subsequent removal of the catheter. He was cooperative with therapies, progressing towards goals. Case management was involved for discharge planning. Electrolytes were managed by protocol. He was considered stable for discharge on 09/17/2017. DISCHARGE MEDICATIONS: As per discharge medication reconciliation. DISCHARGE DISPOSITION: The patient is discharged home. He will continue his current diet and level of activity and will have home health for continued PT and OT. He will follow up with primary care in 7 to 10 days and specialists as directed. At least 30 minutes was spent in this discharge activity. TRANSINT:[id number] Voice Confirmation ID: [id number] DOCUMENT ID: [id number] Dictated By: PANCHO HUTTON I have interviewed/examined the above patient and agree with these documented findings. DISCHARGE SUMMARY REPORT [id number] KEYANNA HOPE SCOTT MD at 1020 at 1023 CC: [id number] DICTATION DATE: 10/31/17 1538 CENTRIFUGAL OPERATOR: 11/01/17 1007 DIS IN 09/17/17 [facility] [address] [facility] [place] [address]
[2017-11-10] MEDS ORDERED: AGGRENOX 200/251 CAP PO (20:03)
[2017-11-10] MEDS ORDERED: LASIX40 MG PO (20:16)
[2017-11-10] MEDS ORDERED: VIBRAMYCIN 100100 MG PO (20:17)
[2017-11-18] MEDS ORDERED: COLCRYS0.6 MG PO (18:07)
[2017-11-18] MEDS ORDERED: ULORIC40 MG PO (18:08)
[2017-11-18] MEDS ORDERED: ACETAMINOPHEN500 M1 PO (18:08)
[2017-11-18] MEDS ORDERED: VOLTAREN100 GM TOPICAL (18:08)
[2017-11-18] MEDS ORDERED: ZOLOFT50 MG PO (18:09)
== END 2017-09-17 12:13 | disposition home health service (06) | DRG 65 ==
LOC: D.REHAB 20:50
PROVIDERS: ADMIT Emergency Medicine
DX: I63.8 Other cerebral infarction (principal); L03.818 Cellulitis of other sites; I11.0 Hypertensive heart disease with heart failure; I50.9 Heart failure, unspecified; R79.89 Other specified abnormal findings of blood chemistry; E78.5 Hyperlipidemia, unspecified; I80.9 Phlebitis and thrombophlebitis of unspecified site; R53.81 Other malaise; I87.8 Other specified disorders of veins; E11.65 Type 2 diabetes mellitus with hyperglycemia

== ENCOUNTER 2017-10-03 19:35 | Inpatient (IN) | payer MEDICARE, BC ==
[~2017-10-03] VITALS: Ht 182.9 cm; Wt 149.1 kg
--- NOTE | ~2017-10-03 | DS ---
PATIENT:KEYANNA HOPE :34 MEDICAL RECORD: [id number] DISCHARGE SUMMARY ADMISSION DATE: 10/03/17 DISCHARGE DATE: 10/12/17 DATE OF ADMISSION: 10/03/2017 DATE OF DISCHARGE: 10/12/2017 ADMIT DIAGNOSIS: Heart failure. 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 OTHER DIAGNOSES: Include dcukl-gk-lhvlzew diastolic congestive heart failure, urinary tract infection, delirium, type 2 diabetes mellitus, chronic kidney disease stage III, right heart failure, atherosclerotic heart disease, mi'kmaq coronary vessels, unspecified fall, the patient's hospital room was the place of the fall, unspecified Escherichia coli as the cause of disease classified elsewhere, obstructive sleep apnea, anemia of chronic disease, unspecified right bundle branch block, presence of prosthetic heart valve, personal history of transient ischemic attack and cerebral infarction. HOSPITAL COURSE: The patient did not really change much over the course of his hospital stay. He is weak. He is depressed. He does not move much. He could not get out of bed very much. CONDITION AT THE TIME OF DISCHARGE: Stable. DISPOSITION: Discharged to [facility] rehabilitation. DISCHARGE MEDICATIONS: Please refer to the patient's discharge medication reconciliation form. TRANSINT:[id number] Voice Confirmation ID: [id number] DOCUMENT ID: [id number] CHENG VALDES MD at 1737 CC: [id number] DICTATION DATE: 11/17/17 1419 PHLEBOTOMIST LAB ASSISTANT: 11/18/17 0725 DIS IN 10/12/17 [place] [address]
[2017-10-03 20:07] LABS: APPEARANCE CLEAR (CLEAR); BILIRUBIN NEGATIVE (NEGATIVE); COLOR DK YELLOW (YELLOW); GLUCOSE NEGATIVE (NEGATIVE); KETONE NEGATIVE (NEGATIVE); NITRITE NEGATIVE (NEGATIVE); PROTEIN NEGATIVE (NEGATIVE); SPECIFIC GRAVITY 1.015 (1.005-1.020); UROBILINOGEN NORMAL (NORMAL)
[2017-10-03 20:11] LABS: BACTERIA FEW /hpf (NONE SEEN); EPITHELIAL CELLS 0-5 /hpf (0-5); GRANULAR CAST RARE /lpf (NONE SEEN); WHITE CELLS - URINE OCC /hpf (0-5)
[2017-10-03 20:17] LABS: BASOPHILS 0.2 % (0-2); EOSINOPHILS 0.8 % (0-7); HEMATOCRIT 29.9 % (42.0-54.0); HEMOGLOBIN 9.9 g/dL (13.5-17.5); IMMATURE GRANULOCYTES 0.5 % (0-5); LYMPHOCYTES 11.9 % (15-50); MCH 30.1 pg (26.0-34.0); MCHC 33.1 g/dL (31.0-37.0); MCV 90.9 fL (80.0-100.0); MEAN PLATELET VOLUME 9.5 fL (7.4-10.4); MONOCYTES 8.8 % (2-11); NEUTROPHILS 77.8 % (40-80); RBC 3.29 10x6/uL (4.20-6.10); RDW 13.5 % (11.5-14.5); WBC 9.1 10x3/uL (4.8-10.8)
[2017-10-03 20:26] LABS: PLATELET COUNT 225 10x3/uL (130-400)
[2017-10-03 20:32] LABS: ALBUMIN 2.5 g/dL (3.4-5.0); ANION GAP 14.2 mmol/L (8-16); BILIRUBIN - TOTAL 0.41 mg/dL (0.2-1.3); CALCIUM 8.7 mg/dL (8.5-10.1); CARBON DIOXIDE 25.5 mmol/L (21.0-32.0); POTASSIUM - SERUM 3.7 mmol/L (3.5-5.1); PROTEIN - SERUM 6.7 g/dL (6.4-8.2)
[2017-10-03 20:49] LABS: TROPONIN-I 0.201 ng/mL (0.000-0.060)
[2017-10-03 22:47] VITALS: BP 117/64; BMI 44.6
[2017-10-04] VITALS (7 sets, daily range): BP systolic 117–153; BP diastolic 64–78
[2017-10-05 04:24] LABS: BASOPHILS 0.3 % (0-2); EOSINOPHILS 1.8 % (0-7); HEMATOCRIT 30.5 % (42.0-54.0); IMMATURE GRANULOCYTES 0.6 % (0-5); LYMPHOCYTES 16.1 % (15-50); MCH 29.7 pg (26.0-34.0); MCHC 32.8 g/dL (31.0-37.0); MCV 90.5 fL (80.0-100.0); MEAN PLATELET VOLUME 9.4 fL (7.4-10.4); MONOCYTES 7.9 % (2-11); NEUTROPHILS 73.3 % (40-80); PLATELET COUNT 229 10x3/uL (130-400); RBC 3.37 10x6/uL (4.20-6.10); RDW 13.6 % (11.5-14.5); WBC 7.1 10x3/uL (4.8-10.8)
[2017-10-05 04:45] LABS: % SATURATION 24 % (15-55); IRON 41 ug/dl (35-150); TOTAL IRON BIND CAPACITY 169 ug/dl (260-445); UNSAT IRON BIND CAPACITY 128 ug/dl (150-375)
[2017-10-05 05:02] LABS: ANION GAP 10.2 mmol/L (8-16); CARBON DIOXIDE 28.3 mmol/L (21.0-32.0); CREATININE - SERUM 1.5 mg/dL (0.6-1.3); POTASSIUM - SERUM 3.5 mmol/L (3.5-5.1)
[2017-10-05 05:09] LABS: CALCIUM 8.9 mg/dL (8.5-10.1)
[2017-10-05 05:52] VITALS: BP 141/46
[2017-10-05 07:55] VITALS: BP 139/54
[2017-10-05 11:52] VITALS: BP 130/62
[2017-10-05 13:36] VITALS: Ht 182.9 cm; Wt 149.1 kg
[2017-10-05 16:11] VITALS: BP 146/73
[2017-10-05 21:08] VITALS: BP 102/57
[2017-10-06 00:48] VITALS: BP 129/55
[2017-10-06] MEDS ORDERED: REGLAN5 MG PO (01:57)
[2017-10-06] MEDS ORDERED: ISOSORBIDE MONO60 M1 PO (01:57)
[2017-10-06] MEDS ORDERED: ULTRAM50 MG PO (01:57)
[2017-10-06 04:21] VITALS: BP 145/98
[2017-10-06 06:11] LABS: BASOPHILS 0.1 % (0-2); HEMATOCRIT 31.8 % (42.0-54.0); HEMOGLOBIN 10.4 g/dL (13.5-17.5); IMMATURE GRANULOCYTES 1.2 % (0-5); LYMPHOCYTES 13.5 % (15-50); MCH 29.9 pg (26.0-34.0); MCHC 32.7 g/dL (31.0-37.0); MCV 91.4 fL (80.0-100.0); MEAN PLATELET VOLUME 9.8 fL (7.4-10.4); MONOCYTES 7.3 % (2-11); NEUTROPHILS 75.9 % (40-80); RBC 3.48 10x6/uL (4.20-6.10); RDW 13.6 % (11.5-14.5); WBC 8.8 10x3/uL (4.8-10.8)
[2017-10-06 06:13] LABS: PLATELET COUNT 279 10x3/uL (130-400)
[2017-10-06 06:35] LABS: ALBUMIN 2.3 g/dL (3.4-5.0); ANION GAP 8.1 mmol/L (8-16); BILIRUBIN - TOTAL 0.31 mg/dL (0.2-1.3); CALCIUM 8.9 mg/dL (8.5-10.1); CARBON DIOXIDE 30.5 mmol/L (21.0-32.0); CREATININE - SERUM 1.5 mg/dL (0.6-1.3); POTASSIUM - SERUM 3.6 mmol/L (3.5-5.1); PROTEIN - SERUM 6.4 g/dL (6.4-8.2)
[2017-10-06 07:57] VITALS: BP 149/58
[2017-10-06 11:45] VITALS: BP 147/63
[2017-10-06 16:00] VITALS: BP 170/72
[2017-10-06 22:36] VITALS: BP 138/69
[2017-10-07 03:54] VITALS: BP 151/55
[2017-10-07 06:20] LABS: BASOPHILS 0.2 % (0-2); EOSINOPHILS 1.4 % (0-7); HEMATOCRIT 33.2 % (42.0-54.0); HEMOGLOBIN 10.7 g/dL (13.5-17.5); IMMATURE GRANULOCYTES 1.6 % (0-5); LYMPHOCYTES 7.7 % (15-50); MCH 29.6 pg (26.0-34.0); MCHC 32.2 g/dL (31.0-37.0); MEAN PLATELET VOLUME 9.5 fL (7.4-10.4); NEUTROPHILS 83.1 % (40-80); PLATELET COUNT 278 10x3/uL (130-400); RBC 3.61 10x6/uL (4.20-6.10); RDW 13.8 % (11.5-14.5); WBC 10.3 10x3/uL (4.8-10.8)
[2017-10-07 06:54] LABS: ALBUMIN 2.3 g/dL (3.4-5.0); ANION GAP 11.9 mmol/L (8-16); BILIRUBIN - TOTAL 0.44 mg/dL (0.2-1.3); CALCIUM 8.5 mg/dL (8.5-10.1); CARBON DIOXIDE 28.8 mmol/L (21.0-32.0); CREATININE - SERUM 1.6 mg/dL (0.6-1.3); POTASSIUM - SERUM 3.7 mmol/L (3.5-5.1); PROTEIN - SERUM 6.4 g/dL (6.4-8.2)
[2017-10-07 07:48] VITALS: BP 125/51
[2017-10-07 11:32] VITALS: BP 111/51
[2017-10-07 15:58] VITALS: BP 127/58
[2017-10-07 20:06] VITALS: BP 133/61
[2017-10-08] VITALS: BP 130/56
[2017-10-08 06:10] VITALS: BP 127/73
[2017-10-08 06:21] LABS: BASOPHILS 0.2 % (0-2); EOSINOPHILS 2.8 % (0-7); HEMATOCRIT 31.2 % (42.0-54.0); HEMOGLOBIN 10.1 g/dL (13.5-17.5); LYMPHOCYTES 11.4 % (15-50); MCH 29.4 pg (26.0-34.0); MCHC 32.4 g/dL (31.0-37.0); MEAN PLATELET VOLUME 9.8 fL (7.4-10.4); MONOCYTES 8.6 % (2-11); PLATELET COUNT 303 10x3/uL (130-400); RBC 3.43 10x6/uL (4.20-6.10); RDW 13.8 % (11.5-14.5); WBC 9.5 10x3/uL (4.8-10.8)
[2017-10-08 06:41] LABS: ALBUMIN 2.3 g/dL (3.4-5.0); ANION GAP 11.2 mmol/L (8-16); BILIRUBIN - TOTAL 0.22 mg/dL (0.2-1.3); CALCIUM 8.8 mg/dL (8.5-10.1); CARBON DIOXIDE 28.5 mmol/L (21.0-32.0); CREATININE - SERUM 1.6 mg/dL (0.6-1.3); POTASSIUM - SERUM 3.7 mmol/L (3.5-5.1); PROTEIN - SERUM 6.3 g/dL (6.4-8.2)
[2017-10-08 07:49] VITALS: BP 135/55
[2017-10-08 11:23] VITALS: BP 132/60
[2017-10-08 16:45] VITALS: BP 143/60
[2017-10-08 21:11] VITALS: BP 115/74
[2017-10-09 01:27] VITALS: BP 146/61
[2017-10-09 05:08] VITALS: BP 130/53
[2017-10-09 06:46] LABS: BASOPHILS 0.3 % (0-2); EOSINOPHILS 2.6 % (0-7); HEMATOCRIT 31.1 % (42.0-54.0); HEMOGLOBIN 10.2 g/dL (13.5-17.5); LYMPHOCYTES 13.1 % (15-50); MCH 29.4 pg (26.0-34.0); MCHC 32.8 g/dL (31.0-37.0); MCV 89.6 fL (80.0-100.0); MEAN PLATELET VOLUME 9.9 fL (7.4-10.4); PLATELET COUNT 303 10x3/uL (130-400); RBC 3.47 10x6/uL (4.20-6.10); RDW 13.6 % (11.5-14.5)
[2017-10-09 07:13] LABS: ALBUMIN 2.2 g/dL (3.4-5.0); ANION GAP 12.5 mmol/L (8-16); BILIRUBIN - TOTAL 0.23 mg/dL (0.2-1.3); CALCIUM 8.6 mg/dL (8.5-10.1); CARBON DIOXIDE 27.4 mmol/L (21.0-32.0); CREATININE - SERUM 1.6 mg/dL (0.6-1.3); POTASSIUM - SERUM 3.9 mmol/L (3.5-5.1); PROTEIN - SERUM 6.1 g/dL (6.4-8.2)
[2017-10-09 08:07] VITALS: BP 130/60
[2017-10-09 11:22] VITALS: BP 152/74
[2017-10-09 15:25] VITALS: BP 140/70
[2017-10-10 05:19] VITALS: BP 130/52
[2017-10-10 07:16] LABS: BASOPHILS 0.4 % (0-2); EOSINOPHILS 2.7 % (0-7); HEMATOCRIT 31.6 % (42.0-54.0); HEMOGLOBIN 10.3 g/dL (13.5-17.5); LYMPHOCYTES 12.5 % (15-50); MCH 29.5 pg (26.0-34.0); MCHC 32.6 g/dL (31.0-37.0); MCV 90.5 fL (80.0-100.0); MEAN PLATELET VOLUME 9.8 fL (7.4-10.4); MONOCYTES 9.3 % (2-11); NEUTROPHILS 74.1 % (40-80); PLATELET COUNT 315 10x3/uL (130-400); RBC 3.49 10x6/uL (4.20-6.10); RDW 13.7 % (11.5-14.5); WBC 8.4 10x3/uL (4.8-10.8)
[2017-10-10 07:30] LABS: ALBUMIN 2.3 g/dL (3.4-5.0); ANION GAP 13.1 mmol/L (8-16); BILIRUBIN - TOTAL 0.28 mg/dL (0.2-1.3); CALCIUM 8.8 mg/dL (8.5-10.1); CARBON DIOXIDE 27.6 mmol/L (21.0-32.0); CREATININE - SERUM 1.6 mg/dL (0.6-1.3); POTASSIUM - SERUM 3.7 mmol/L (3.5-5.1); PROTEIN - SERUM 6.2 g/dL (6.4-8.2)
[2017-10-10 12:25] VITALS: BP 129/54
[2017-10-10 16:18] VITALS: BP 151/62
[2017-10-10 20:50] VITALS: BP 159/60
[2017-10-11 01:45] VITALS: BP 143/61
[2017-10-11 07:01] VITALS: BP 126/55
[2017-10-11 09:25] VITALS: BP 115/48
[2017-10-11 12:43] VITALS: BP 122/52
[2017-10-11 17:32] VITALS: BP 127/58
[2017-10-11 20:00] VITALS: BP 153/49
[2017-10-12 00:30] VITALS: BP 152/65
[2017-10-12 04:30] VITALS: BP 143/61
[2017-10-12 08:41] VITALS: BP 132/61
[2017-10-12 11:43] VITALS: BP 126/60
[2017-11-10] MEDS ORDERED: AGGRENOX 200/251 CAP PO (20:03)
[2017-11-10] MEDS ORDERED: LASIX40 MG PO (20:16)
[2017-11-10] MEDS ORDERED: VIBRAMYCIN 100100 MG PO (20:17)
[2017-11-18] MEDS ORDERED: COLCRYS0.6 MG PO (18:07)
[2017-11-18] MEDS ORDERED: ULORIC40 MG PO (18:08)
[2017-11-18] MEDS ORDERED: VOLTAREN100 GM TOPICAL (18:08)
[2017-11-18] MEDS ORDERED: ACETAMINOPHEN500 M1 PO (18:08)
[2017-11-18] MEDS ORDERED: ZOLOFT50 MG PO (18:09)
== END 2017-10-12 23:06 | DRG 291 ==
LOC: D.ER 19:35 → D.M2 21:15
PROVIDERS: Family Medicine
DX: I13.0 Hypertensive heart and chronic kidney disease with heart failure and stage 1 through stage 4 chronic kidney disease, or unspecified chronic kidney disease (principal); I50.33 Acute on chronic diastolic (congestive) heart failure; N39.0 Urinary tract infection, site not specified; F05 Delirium due to known physiological condition; E11.22 Type 2 diabetes mellitus with diabetic chronic kidney disease; N18.3 Chronic kidney disease, stage 3 (moderate); I50.810 Right heart failure, unspecified; I25.10 Atherosclerotic heart disease of native coronary artery without angina pectoris; W19.XXXA Unspecified fall, initial encounter; Y92.230 Patient room in hospital as the place of occurrence of the external cause; B96.20 Unspecified Escherichia coli [E. coli] as the cause of diseases classified elsewhere; G47.33 Obstructive sleep apnea (adult) (pediatric); D63.8 Anemia in other chronic diseases classified elsewhere; I45.10 Unspecified right bundle-branch block; Z95.2 Presence of prosthetic heart valve; Z86.73 Personal history of transient ischemic attack (TIA), and cerebral infarction without residual deficits

== ENCOUNTER 2017-10-12 16:56 | Inpatient (IN) | payer MEDICARE, BC ==
[~2017-10-12] VITALS: Ht 182.9 cm; Wt 148.8 kg
[~2017-10-12 16:56] MED LIST changes: +ISOSORBIDE MONO60 M1 PO; +REGLAN5 MG PO; +ULTRAM50 MG PO
[2017-10-12 22:12] VITALS: BP 164/59; BMI 44.6
[2017-10-13 06:35] LABS: BASOPHILS 0.2 % (0-2); EOSINOPHILS 2.1 % (0-7); HEMATOCRIT 33.7 % (42.0-54.0); IMMATURE GRANULOCYTES 0.6 % (0-5); LYMPHOCYTES 14.4 % (15-50); MCHC 32.6 g/dL (31.0-37.0); MCV 91.8 fL (80.0-100.0); MEAN PLATELET VOLUME 9.6 fL (7.4-10.4); NEUTROPHILS 76.7 % (40-80); PLATELET COUNT 308 10x3/uL (130-400); RBC 3.67 10x6/uL (4.20-6.10); RDW 13.8 % (11.5-14.5); WBC 10.3 10x3/uL (4.8-10.8)
[2017-10-13 07:07] LABS: ANION GAP 10.3 mmol/L (8-16); CALCIUM 9.3 mg/dL (8.5-10.1); CARBON DIOXIDE 30.9 mmol/L (21.0-32.0); CREATININE - SERUM 1.3 mg/dL (0.6-1.3); POTASSIUM - SERUM 4.2 mmol/L (3.5-5.1)
[2017-10-13 07:56] VITALS: BP 153/63
[2017-10-13 10:09] VITALS: Ht 182.9 cm; Wt 148.8 kg
[2017-10-13 19:30] VITALS: BP 154/58
[2017-10-14 08:32] VITALS: BP 143/55
[2017-10-14 22:55] VITALS: BP 149/68
[2017-10-15 06:57] LABS: BASOPHILS 0.2 % (0-2); EOSINOPHILS 1.9 % (0-7); HEMATOCRIT 32.6 % (42.0-54.0); HEMOGLOBIN 10.6 g/dL (13.5-17.5); IMMATURE GRANULOCYTES 0.5 % (0-5); LYMPHOCYTES 17.5 % (15-50); MCH 29.6 pg (26.0-34.0); MCHC 32.5 g/dL (31.0-37.0); MCV 91.1 fL (80.0-100.0); MEAN PLATELET VOLUME 9.6 fL (7.4-10.4); MONOCYTES 6.5 % (2-11); NEUTROPHILS 73.4 % (40-80); PLATELET COUNT 274 10x3/uL (130-400); RBC 3.58 10x6/uL (4.20-6.10); RDW 13.9 % (11.5-14.5); WBC 9.7 10x3/uL (4.8-10.8)
[2017-10-15 07:14] LABS: ANION GAP 13.1 mmol/L (8-16); CALCIUM 9.4 mg/dL (8.5-10.1); CARBON DIOXIDE 28.8 mmol/L (21.0-32.0); CREATININE - SERUM 1.7 mg/dL (0.6-1.3); POTASSIUM - SERUM 3.9 mmol/L (3.5-5.1)
[2017-10-15 19:00] VITALS: BP 129/61
[2017-10-16 08:15] VITALS: BP 150/66
[2017-10-16 19:00] VITALS: BP 134/55
[2017-10-17 08:22] VITALS: BP 134/60
[2017-10-17 19:00] VITALS: BP 140/55
[2017-10-18 07:28] LABS: BASOPHILS 0.6 % (0-2); EOSINOPHILS 3.8 % (0-7); HEMATOCRIT 32.2 % (42.0-54.0); HEMOGLOBIN 10.4 g/dL (13.5-17.5); IMMATURE GRANULOCYTES 0.3 % (0-5); LYMPHOCYTES 20.3 % (15-50); MCH 29.5 pg (26.0-34.0); MCHC 32.3 g/dL (31.0-37.0); MCV 91.5 fL (80.0-100.0); MONOCYTES 10.9 % (2-11); NEUTROPHILS 64.1 % (40-80); PLATELET COUNT 252 10x3/uL (130-400); RBC 3.52 10x6/uL (4.20-6.10); RDW 14.1 % (11.5-14.5); WBC 6.6 10x3/uL (4.8-10.8)
[2017-10-18 07:52] LABS: ANION GAP 13.2 mmol/L (8-16); CALCIUM 8.9 mg/dL (8.5-10.1); CARBON DIOXIDE 28.6 mmol/L (21.0-32.0); CREATININE - SERUM 1.6 mg/dL (0.6-1.3); POTASSIUM - SERUM 3.8 mmol/L (3.5-5.1)
[2017-10-18 08:00] VITALS: BP 156/64
[2017-10-18 22:35] VITALS: BP 142/79
[2017-10-19 08:00] VITALS: BP 129/51
[2017-10-19 22:45] VITALS: BP 141/76
[2017-10-20 08:15] VITALS: BP 143/67
[2017-10-21 08:00] VITALS: BP 125/81
[2017-10-21 08:31] LABS: HEMATOCRIT 33.4 % (42.0-54.0); HEMOGLOBIN 10.4 g/dL (13.5-17.5); LYMPHOCYTES 20.5 % (15-50); MCH 27.9 pg (26.0-34.0); MCHC 31.1 g/dL (31.0-37.0); MCV 89.5 fL (80.0-100.0); MEAN PLATELET VOLUME 10.9 fL (7.4-10.4); NEUTROPHILS 72.2 % (40-80); PLATELET COUNT 206 10x3/uL (130-400); RBC 3.73 10x6/uL (4.20-6.10); RDW 13.6 % (11.5-14.5); WBC 7.2 10x3/uL (4.8-10.8)
[2017-10-21 08:38] LABS: ANION GAP 12.6 mmol/L (8-16); CALCIUM 9.2 mg/dL (8.5-10.1); CARBON DIOXIDE 30.4 mmol/L (21.0-32.0); CREATININE - SERUM 1.7 mg/dL (0.6-1.3)
[2017-10-21 22:30] VITALS: BP 141/67
[2017-10-22 08:00] VITALS: BP 138/57
[2017-10-22 19:11] VITALS: BP 176/70
[2017-10-23 08:00] VITALS: BP 132/51
[2017-10-23 19:30] VITALS: BP 141/60
[2017-10-24 08:39] VITALS: BP 160/61
[2017-10-24 22:59] VITALS: BP 183/68
[2017-10-25 06:34] LABS: BASOPHILS 0.6 % (0-2); EOSINOPHILS 3.8 % (0-7); HEMOGLOBIN 10.3 g/dL (13.5-17.5); IMMATURE GRANULOCYTES 0.3 % (0-5); LYMPHOCYTES 20.8 % (15-50); MCH 28.9 pg (26.0-34.0); MCHC 31.2 g/dL (31.0-37.0); MCV 92.4 fL (80.0-100.0); MEAN PLATELET VOLUME 10.2 fL (7.4-10.4); MONOCYTES 10.6 % (2-11); NEUTROPHILS 63.9 % (40-80); PLATELET COUNT 234 10x3/uL (130-400); RBC 3.57 10x6/uL (4.20-6.10); RDW 14.3 % (11.5-14.5); WBC 7.1 10x3/uL (4.8-10.8)
[2017-10-25 06:47] LABS: ANION GAP 11.1 mmol/L (8-16); CALCIUM 9.2 mg/dL (8.5-10.1); CARBON DIOXIDE 30.4 mmol/L (21.0-32.0); CREATININE - SERUM 1.6 mg/dL (0.6-1.3); POTASSIUM - SERUM 3.5 mmol/L (3.5-5.1)
[2017-10-25 07:41] VITALS: BP 166/68
[2017-10-25 20:48] VITALS: BP 168/67
[2017-10-26 09:57] VITALS: BP 157/69
[2017-10-26 21:28] VITALS: BP 116/48
[2017-10-27 06:35] LABS: BASOPHILS 0.4 % (0-2); EOSINOPHILS 4.4 % (0-7); HEMATOCRIT 36.2 % (42.0-54.0); HEMOGLOBIN 11.6 g/dL (13.5-17.5); IMMATURE GRANULOCYTES 0.1 % (0-5); LYMPHOCYTES 17.9 % (15-50); MCH 29.4 pg (26.0-34.0); MCV 91.9 fL (80.0-100.0); MEAN PLATELET VOLUME 10.2 fL (7.4-10.4); NEUTROPHILS 67.2 % (40-80); PLATELET COUNT 239 10x3/uL (130-400); RBC 3.94 10x6/uL (4.20-6.10); RDW 14.4 % (11.5-14.5); WBC 8.6 10x3/uL (4.8-10.8)
[2017-10-27 07:08] LABS: ANION GAP 14.9 mmol/L (8-16); CALCIUM 9.6 mg/dL (8.5-10.1); CARBON DIOXIDE 25.9 mmol/L (21.0-32.0); CREATININE - SERUM 1.7 mg/dL (0.6-1.3); POTASSIUM - SERUM 3.8 mmol/L (3.5-5.1)
[2017-10-27 07:42] VITALS: BP 129/59
[2017-10-27 20:00] VITALS: BP 118/98
[2017-10-28 08:20] VITALS: BP 150/63
[2017-10-28 19:45] VITALS: BP 158/79
[2017-10-29 06:00] LABS: BASOPHILS 0.4 % (0-2); EOSINOPHILS 4.4 % (0-7); HEMATOCRIT 34.5 % (42.0-54.0); IMMATURE GRANULOCYTES 0.2 % (0-5); LYMPHOCYTES 22.1 % (15-50); MCH 29.2 pg (26.0-34.0); MCHC 31.9 g/dL (31.0-37.0); MCV 91.5 fL (80.0-100.0); MEAN PLATELET VOLUME 10.1 fL (7.4-10.4); MONOCYTES 8.2 % (2-11); NEUTROPHILS 64.7 % (40-80); PLATELET COUNT 256 10x3/uL (130-400); RBC 3.77 10x6/uL (4.20-6.10); RDW 14.4 % (11.5-14.5); WBC 8.5 10x3/uL (4.8-10.8)
[2017-10-29 06:33] LABS: ANION GAP 12.1 mmol/L (8-16); CALCIUM 9.3 mg/dL (8.5-10.1); CARBON DIOXIDE 29.7 mmol/L (21.0-32.0); CREATININE - SERUM 1.8 mg/dL (0.6-1.3); POTASSIUM - SERUM 3.8 mmol/L (3.5-5.1)
[2017-10-29 08:03] VITALS: BP 145/56
[2017-11-10] MEDS ORDERED: AGGRENOX 200/251 CAP PO (20:03)
[2017-11-10] MEDS ORDERED: LASIX40 MG PO (20:16)
[2017-11-10] MEDS ORDERED: VIBRAMYCIN 100100 MG PO (20:17)
[2017-11-18] MEDS ORDERED: COLCRYS0.6 MG PO (18:07)
[2017-11-18] MEDS ORDERED: VOLTAREN100 GM TOPICAL (18:08)
[2017-11-18] MEDS ORDERED: ULORIC40 MG PO (18:08)
[2017-11-18] MEDS ORDERED: ACETAMINOPHEN500 M1 PO (18:08)
[2017-11-18] MEDS ORDERED: ZOLOFT50 MG PO (18:09)
== END 2017-10-29 09:32 | DRG 292 ==
LOC: D.REHAB 16:56
PROVIDERS: Emergency Medicine
DX: I13.0 Hypertensive heart and chronic kidney disease with heart failure and stage 1 through stage 4 chronic kidney disease, or unspecified chronic kidney disease (principal); N39.0 Urinary tract infection, site not specified; I50.9 Heart failure, unspecified; E11.22 Type 2 diabetes mellitus with diabetic chronic kidney disease; N18.3 Chronic kidney disease, stage 3 (moderate); D64.9 Anemia, unspecified; R41.0 Disorientation, unspecified; R79.89 Other specified abnormal findings of blood chemistry

== ENCOUNTER 2018-01-29 15:56 | Inpatient (IN) | payer MEDICARE, BC ==
[~2018-01-29] VITALS: Ht 182.9 cm; Wt 170.1 kg
--- NOTE | ~2018-01-29 | EC ---
PATIENT:KEYANNA HOPE DATE OF SERVICE: 01/29/18 SEX: M MEDICAL RECORD: [id number] DATE OF : 34 LOCATION:D.M2 D.211 AGE OF PATIENT: 87 ADMISSION DATE: 01/29/18 REFERRING PHYSICIAN: INTERPRETING PHYSICIAN: KEYANNA PINEDA MD ECHOCARDIOGRAM REPORT ECHO CHARGES 5 ECHO LIMITED Date: 02/05 CLINICAL DIAGNOSIS: CHEST PAIN HX OF AVR ECHOCARDIOGRAPHIC MEASUREMENTS (adult normal given) AC root (d.<3.7cm) 3.0 cm LV Septum d (<1.2 cm> 1.5 cm Valve Excursion 0.8 cm LV Septum (systole) 2.2 cm Left Atria (s.<4.0cm> 4.6 cm LVPW d(<1.2cm) 1.5 cm RV (d.<2.3cm) 4.8 cm LVPW (sytole) 2.2 cm LV diastole(<5.6CM) 6.8 cm MV E-F(>70mm/sec) cm LV systole 3.7 cm LVOT Diameter 2.3 cm MV exc.(>10mm) cm Est.ejection fraction (50-75%) % DOPPLER: LVIT cm/sec A 70.0 cm/sec E 103 cm/sec LA cm/sec RVSP 18 mmHg LVOT 130 cm/sec AOP1/2T m/s Asc. Ao 276 cm/sec RVOT 82.0 cm/sec RA cm/sec PA 148 cm/sec AV Gradient Peak 30.45mmHg AV Mean 17.32mmHg AV Area 1.1 cm MV Gradient Peak 8.2 mmHg MV Mean 2.4 mmHg MV Area cm COMMENTS: Ore Tester: 2 JOHN NOLAN Patients Transporter: 4 Dr. Pineda TAPE# PACS Pericardial Effusion N DATE OF SERVICE: PROCEDURE: Limited transthoracic echocardiogram. FINDINGS: Left ventricle shows inferior basilar hypokinesis and regional wall motion abnormalities. The other regions of the left ventricle have normal function. This appears to may be a new finding and evidence of possible recent myocardial infarction. The rest of the echocardiogram is unchanged from last week. The peak gradient across the porcine aortic valve is 30 mmHg, and there is trace aortic insufficiency. ECHOCARDIOGRAM REPORT [id number] KEYANNA HOPE TRANSINT:[id number] Voice Confirmation ID: [id number] DOCUMENT ID: [id number] KEYANNA PINEDA MD at 1522 CC: [id number] DICTATION DATE: 02/06/18 0732 MARINE STEAM FITTER HELPER: 02/06/18 0953 ADM IN [facility] [address] [place] [address] [id number]
--- NOTE | ~2018-01-29 | EC ---
PATIENT:KEYANNA HOPE DATE OF SERVICE: 01/29/18 SEX: M MEDICAL RECORD: [id number] DATE OF : 34 LOCATION:D.M2 D.211 AGE OF PATIENT: 87 ADMISSION DATE: 01/29/18 REFERRING PHYSICIAN: INTERPRETING PHYSICIAN: AILYN GUTIERREZ MD ECHOCARDIOGRAM REPORT ECHO CHARGES 4 ECHO COMPLETE Date: 01/30 CLINICAL DIAGNOSIS: AVR/CHF ECHOCARDIOGRAPHIC MEASUREMENTS (adult normal given) AC root (d.<3.7cm) 3.0 cm LV Septum d (<1.2 cm> 1.5 cm Valve Excursion 0.8 cm LV Septum (systole) 2.2 cm Left Atria (s.<4.0cm> 4.4 cm LVPW d(<1.2cm) 1.5 cm RV (d.<2.3cm) 2.7 cm LVPW (sytole) 2.2 cm LV diastole(<5.6CM) 6.8 cm MV E-F(>70mm/sec) cm LV systole 3.7 cm LVOT Diameter 1.9 cm MV exc.(>10mm) cm Est.ejection fraction (50-75%) % DOPPLER: LVIT cm/sec A 70.0 cm/sec E 103 cm/sec LA cm/sec RVSP mmHg LVOT 130 cm/sec AOP1/2T m/s Asc. Ao 340 cm/sec RVOT 82.0 cm/sec RA cm/sec PA 148 cm/sec AV Gradient Peak 46.2 mmHg AV Mean 27.2 mmHg AV Area 1.3 cm MV Gradient Peak 8.2 mmHg MV Mean 2.4 mmHg MV Area cm COMMENTS: Manager Union: 1 RAMESH ANDRESOE [employer]fuels Production Manager: 3 Dr. Carr TAPE# PACS Pericardial Effusion N DATE OF SERVICE: Adequate 2D echo, color flow, spectral Doppler, and M-mode. LVH is present. LV internal dimensions are normal. Wall motion is normal. EF is greater than or equal to 55%. Tissue prosthetic aortic valve is noted with acceptable Doppler velocity. Mild AI by color flow imaging. Left atrium is mildly dilated at 4.4 cm. Mitral valve shows no prolapse. Moderate MR. Right-sided chamber is normal. Mild TR. ECHOCARDIOGRAM REPORT [id number] KEYANNA HOPE TRANSINT:[id number] Voice Confirmation ID: [id number] DOCUMENT ID: [id number] AILYN GUTIERREZ MD at 1337 CC: [id number] DICTATION DATE: 01/31/18 1043 BAND HEAD SAW OPERATOR: 01/31/18 1221 ADM IN [facility] [address] [id number]
--- NOTE | ~2018-01-29 | HEMODYNAMI ---
PATIENT:KEYANNA HOPE MEDICAL RECORD: [id number] : 34 LOCATION:[facility] D.2118 ADMISSION DATE: 01/29/18 Generatedon:02/09/201814:34 Patient name: KEYANNA HOPE Patient #: [id number] SSN: : 1930 Date of study: 02/09/2018 Page: Of Hemodynamic Procedure Report Patient Data Patient Demographics Procedure consent was obtained First Name: KEYANNA Gender: Male Last Name: HERMINIA : 1930 Middle Initial: E Age: 87 year(s) Patient #: [id number] Race: Unknown Additional ID: [id number] Contact details Address: [address] [place] [address] State: [place] City: [place] Zip code: [address] Admission Admission Data Admission Date: 01/29/2018 Admission Time: 18:45 Room #: D.2118 Procedure Procedure Types Cath Procedure Diagnostic Procedure JOCY Procedure Description Procedure Date Procedure Date: 02/09/2018 Procedure Start Time: 14:18 Procedure End Time: 14:28 Procedure Staff Name Function Brady Michael MD Performing Physician Diane Edwards RT Monitor Zakia Cleary RT Scrub Sharda Osorio RN Nurse Rashid Weeks CRNA Additional personnel Ricardo Alvarado Linderman Operator Procedure Data Cath Procedure Fluoroscopy Diagnostic fluoroscopy Total fluoroscopy Time: 0 time: 0 min min Diagnostic fluoroscopy Total fluoroscopy dose: 0 dose: 0 mGy mGy Contrast Material Contrast Material Type Amount (ml) Isovue 300 0 Estimated blood loss: 0 ml Procedure Complications No complications Procedure Medications Medication Administration Route Dosage Oxygen NC 4 l/min unlisted medication 30 ml Refer to Anesthesia Notes for Sedation Medications Hemodynamics Rest Heart Rate: 74 (bpm) Snapshots Pre Cath Intra NCS Post Cath Vital Signs Time Heart Resp SPO2 NIBP Rhythm Pain Sedation Rate (ipm) (%) (mmHg) Status Level (bpm) 14:16:55 77 15 96 Measuring NSR 0 (11) 10(A) , No pain 14:17:46 82 17 96 145/53(79) NSR 0 (11) 10(A) , No pain 14:22:21 80 17 96 139/48(75) NSR 0 (11) 9(A) , No pain 14:25:37 77 21 96 128/42(84) NSR 0 (11) 10(A) , No pain 14:27:48 78 15 96 130/44(86) NSR 0 (11) 10(A) , No pain Medications Time Medication Route Dose Verified Delivered Reason Notes Effectiven ess by by 14:16:19 Oxygen NC 4 Brady Robin used for l/min St Jeff Osorio RN procedure 14:16:32 Visc. gargle 30 ml Brady Robin Per Lidocaine St Jeff Osorio RN physician 14:23:39 Refer to Brady Robin Anesthesia St Jeff Osorio RN Notes for MD Sedation Medications Procedure Log Time Note 14:14:50 Zakia Cleary RT(R) sent for patient. Start room use. 14:14:50 Time tracking: Regular hours (M-F 7:00 - 5:00) 14:14:54 Plan of Care:Hemodynamics will remain stable., Cardiac rhythm will remain stable., Comfort level will be maintained., Respiratory function will remain adequate., Patient/ family verbilizes understanding of procedure., Procedure tolerated without complication., Recovers from procedure without complications.. 14:15:01 Patient received from Med II to CCL 3 Alert and oriented. Tansferred to table in Supine position. 14:15:02 Warm blankets applied, and daphne hugger turned on for patient comfort. 14:15:02 Correct patient and procedure confirmed by team. 14:15:04 Signed procedure consent form obtained from patient. 14:15:05 ECG and BP/O2 sat monitors applied to patient. 14:15:06 Vital chart was started 14:15:08 Baseline sample Acquired. 14:15:11 Rhythm: sinus rhythm 14:15:14 Full Disclosure recording started 14:15:18 H&P Date Dictated: 02/09/2018 Within 30 days and on chart., H&P Addendum completed by physician on day of procedure. (MUST COMPLETE FOR ALL OUTPATIENTS). 14:15:20 Pre-procedure instructions explained to patient. 14:15:20 Pre-op teaching completed and patient verbalized understanding. 14:15:22 Family unavailable. 14:15:29 Patient NPO since Midnight. 14:15:30 Is the patient allergic to Iodine/contrast media? No. 14:15:31 Was the patient premedicated? No 14:16:18 Is patient on blood thinner?No 14:16:19 Oxygen 4 l/min NC was administered by Sharda Osorio RN; used for procedure; 14:16:20 Patient diabetic? No. 14:16:23 Previous problem with sedation/anesthesia? No ? 14:16:24 Snore? Yes 14:16:25 Sleep apnea? Yes 14:16:26 Deviated septum? No 14:16:27 Opens mouth fully? Yes 14:16:28 Sticks out tongue? Yes 14:16:30 Airway obstruction? Yes asbestosis 14:16:32 Visc. Lidocaine 30 ml gargle was administered by Sharda Osorio RN; Per physician; 14:17:10 Dentures? Yes out 14:17:13 Pre procedure: right dorsailis pedis pulse 1+ Palpable, but thready & weak; easily obliterated 14:17:16 Pre procedure: left dorsailis pedis pulse 1+ Palpable, but thready & weak; easily obliterated 14:17:19 Patient pain scale 0/10 ?. 14:17:25 IV patent on arrival in left hand with 0.9% NaCl at [facility]. 14:17:28 Lab results completed and on chart. 14:17:36 Alarms reviewed by R. N. 14:17:37 Sharps counted by scrub and verified by R.N. 14:17:38 Physician arrived 14:17:38 --------ALL STOP TIME OUT------ 14:17:39 Final Timeout: patient, procedure, and site verified with staff and physician. All members of the team are in agreement. 14:17:45 Physical assessment completed. ASA score P 2 - A patient with mild systemic disease as per Brady Michael MD. 14:17:48 Sedation plan: TIVA Medication:Propofol 14:18:10 Rashid Weeks CRNA present and monitoring patient for TIVA. 14:18:12 Procedure started. 14:18:28 Ricardo Alvarado Biochemistry Professor present for JOCY. 14:18:29 JOCY started. 14:23:39 Refer to Anesthesia Notes for Sedation Medications was administered by Sharda Osorio RN; ; 14:24:05 JOCY completed. 14:24:31 Procedure ended.(Physican Out) 14:25:21 Fluoroscopy time 00.00 minutes. 14:25:24 Fluoroscopy dose: 0 mGy 14:25:24 Flurop Dose total: 0 14:25:32 Contrast amount:Isovue 300 0ml. 14:25:39 Sharps counted by scrub and verified by R.N. 14:25:50 Insertion/operative site no bleeding no hematoma. 14:26:30 Post Procedure Pulses reassessed and unchanged 14:26:33 Post procedure rhythm: unchanged. 14:26:42 Estimated blood loss: 0 ml 14:27:03 Post procedure instruction explained to patient.Patient verbalizes understanding. 14:27:04 Patient needs reinforcement of post procedure teaching. 14:27:27 Procedure type changed to Cath procedure, Diagnostic procedure, JOCY 14:27:27 Procedure and supply charges have been captured, reviewed, submitted and are correct. 14:27:39 Procedure Complication : No complications 14:28:45 Vital chart was stopped 14:28:46 See physician's report for complete and final results. 14:28:49 Report given to [facility]. 14:28:52 Patient transfered to [facility] with Stretcher. 14:28:54 Procedure ended. 14:28:54 Full Disclosure recording stopped 14:29:13 End room use (Document Last) Signature Audit Shelley Stage Time Signature Unsigned Intra-Procedure 02/09/2018 Diane Edwards 2:34:00 PM RT(R) Signatures Monitor : Diane Edwards RT Signature : Date : Time : [facility] [address] [place] [address]
--- NOTE | ~2018-01-29 | TEE ---
PATIENT:KEYANNA HOPE MEDICAL RECORD: [id number] LOCATION:D. D211 AGE OF PATIENT: 87 ADMISSION DATE: 01/29/18 SEX: M REFERRING PHYSICIAN: INTERPRETING PHYSICIAN: AILYN GUTIERREZ MD TRANSESOPHAGEAL ECHOCARDIOGRAM Date: 02/09/18 JOCY CHARGE Y INDICATIONS: MRSA/PROSTHETIC AORTIC VALVE - R/O VEGETATION PREMEDICATIONS: PATIENT'S RESPONSE PROCEDURE DOPPLER MEASUREMENTS: LVIT LA PA 148 RA LVOT 130 RVOT 82.0 Asc. Ao 276 AV Gradient Peak 30.45 AV Mean 17.32AV Area 1.1 MV Gradient Peak 8.2 MV Mean 2.4 MV Area INTERPRETATION: Doppler: 2-D: COLOR FLOW DOPPLER NORMAL SALINE STUDY: MISCELLANOUS: DIAGNOSIS: PLAN: Brand Ambassador:3 Dr. Carr Cognos Bi Administrator: Gaston ARANA COMMENTS: DATE OF SERVICE: 02/09/2018 TRANSESOPHAGEAL NOTE After general sedation via TIVA via anesthesia, the transesophageal Omniplane probe was placed into the distal esophagus, proximal stomach without difficulty. FINDINGS: LVH present. LV internal dimension is normal. Wall motion is normal. EF is greater than or equal to 55%. Prosthetic tissue aortic valve is TRANSESOPHAGEAL ECHOCARDIOGRAM REPORT [id number] KEYANNA HOPE present with small, less than probably 1-mm vegetation noted with moderate AI. Left atrium appears of normal dimension. Mitral valve shows vegetation on the anterior leaflet, again approximately 1 mm, free floating and sessile. Moderate MR is noted as well. Right-sided chambers are grossly normal. Trivial TR by color flow imaging. 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 TRANSINT:[id number] Voice Confirmation ID: [id number] DOCUMENT ID: [id number] at 0804 CC: [id number] DICTATION DATE: 02/09/18 1429 RUBBER INSULATOR: 02/09/18 1457 ADM IN [facility] [address] [place] [address]
--- NOTE | ~2018-01-29 | CN ---
PATIENT NAME:KEYANNA HOPE MEDICAL RECORD: [id number] : 34 LOCATION:[facility] D.2118 ADMIT DATE: 01/29/18 ACCOUNT: [id number] CONSULTING PHYSICIAN: AILYN GUTIERREZ MD REFERRING PHYSICIAN: CHENG VALDES MD DATE OF CONSULTATION: 01/30/2018 Cardiology Consultation HISTORY OF PRESENT ILLNESS: An 87-year-old gentleman with known history of coronary artery disease as well as aortic valve disease status post tissue aortic valve replacement, admitted with really a week progressive history of dyspnea on exertion, shortness of breath, volume overload, point of da orthopnea, PND. He reports that he really due to multiple admissions this year, really has not regained his strength. We are asked to see him concerning his cardiovascular status. PAST MEDICAL HISTORY: Includes: 1. History of coronary artery disease. 2. Aortic valve disease status post aortic valve replacement. 3. Heart failure with preserved EF. 4. Diabetes mellitus. 5. Gastroesophageal reflux disease. 6. Obstructive sleep apnea. ALLERGIES: INCLUDE IODINE CONTRAST AND INDOMETHACIN. MEDICATIONS: Include Uloric 40 mg p.o. daily, colchicine 0.6 every day, Tradjenta 5 mg p.o. every day, insulin per scale, Reglan 5 t.i.d., Lasix 80 b.i.d., Bumex 2 b.i.d., tramadol 50 q.6 p.r.n., Zoloft 75 every day, Lyrica 75 b.i.d., Neurontin 300 q.h.s., Aldactone 25 every day, simvastatin 40 every day, metoprolol 25 b.i.d., Imdur 30 every day, Aggrenox 25/200 b.i.d. REVIEW OF SYSTEMS: The patient reports easy bruising but reports no swollen glands. The patient reports no fever, no night sweats, no significant weight gain, no significant weight loss. No significant exercise tolerance. The patient reports no dry eyes, no irritation, no vision change. Patient reports no difficulty hearing and no ear pain. Patient reports no frequent nose bleeds or nose and sinus problems. Patient reports on arm pain on exertion. No shortness of breath while lying down. No history of heart murmur. Patient reports no cough, no wheezing or coughing up blood. Patient reports no abdominal pain, no vomiting. Normal appetite. No diarrhea and not vomiting blood. No nausea and no constipation. Patient reports no incontinence. No difficulty urinating. No hematuria. No increased frequency. Patient reports no muscle aches. No weakness, no arthralgias, no back pain. No swelling of the extremities. Patient reports no abnormal mole, no jaundice, no rashes. Reports no loss of consciousness. No weakness and no numbness. No seizures, dizziness, or headaches. The patient reports no depression, no sleep disturbance, feeling safe in a relationship and no alcohol abuse. Patient reports on fatigue. Reports no runny nose or sinus pressure. No itching, no hives, and no frequent sneezing. PHYSICAL EXAMINATION: GENERAL: Pleasant gentleman in no acute distress. VITAL SIGNS: Pulse 82 and regular, blood pressure 155/51. CONSULT REPORT [id number] HERMINIA,KEYANNA Agustin HEENT: Normocephalic, atraumatic. NECK: No bruits noted. HEART: Regular, II-III/ systolic ejection, I/ diastolic murmur. LUNGS: Actually fairly good air excursion. ABDOMEN: Soft, nontender. EXTREMITIES: Pulses 1+ with 2+ edema. IMPRESSION: Xjqay-jv-gtjlxcy diastolic dysfunction. At this point, we will add ARB to meds. Recheck echocardiogram study. Further recommendations based on the above. TRANSINT:[id number] Voice Confirmation ID: [id number] DOCUMENT ID: [id number] AILYN GUTIERREZ MD at 1132 CC: [id number] DICTATION DATE: 01/30/18 1055 MANAGER FIELD SERVICES: 01/30/18 1213 [facility] [address] [place] [address]
[~2018-01-29 15:56] MED LIST changes: +ACETAMINOPHEN500 M1 PO; +COLCRYS0.6 MG PO; +LASIX40 MG PO; +ULORIC40 MG PO; +VOLTAREN100 GM TOPICAL; +ZOLOFT50 MG PO
[2018-01-29 16:44] LABS: BASOPHILS 0.3 % (0-2); HEMATOCRIT 34.7 % (42.0-54.0); HEMOGLOBIN 11.2 g/dL (13.5-17.5); IMMATURE GRANULOCYTES 0.3 % (0-5); LYMPHOCYTES 20.8 % (15-50); MCH 29.2 pg (26.0-34.0); MCHC 32.3 g/dL (31.0-37.0); MCV 90.4 fL (80.0-100.0); MEAN PLATELET VOLUME 10.6 fL (7.4-10.4); MONOCYTES 7.6 % (2-11); RBC 3.84 10x6/uL (4.20-6.10); RDW 14.5 % (11.5-14.5); WBC 9.8 10x3/uL (4.8-10.8)
[2018-01-29 16:45] LABS: PLATELET COUNT 235 10x3/uL (130-400)
[2018-01-29 16:49] LABS: APPEARANCE CLEAR (CLEAR); BILIRUBIN NEGATIVE (NEGATIVE); COLOR YELLOW (YELLOW); GLUCOSE NEGATIVE (NEGATIVE); KETONE NEGATIVE (NEGATIVE); NITRITE NEGATIVE (NEGATIVE); PROTEIN NEGATIVE (NEGATIVE); UROBILINOGEN NORMAL (NORMAL)
[2018-01-29 16:52] LABS: BACTERIA FEW /hpf (NONE SEEN); RED CELLS - URINE 0-5 /hpf (0-5); WHITE CELLS - URINE 0-5 /hpf (0-5)
[2018-01-29 17:08] LABS: ALBUMIN 3.1 g/dL (3.4-5.0); ANION GAP 12.2 mmol/L (8-16); BILIRUBIN - TOTAL 0.36 mg/dL (0.2-1.3); CALCIUM 8.8 mg/dL (8.5-10.1); CARBON DIOXIDE 29.1 mmol/L (21.0-32.0); POTASSIUM - SERUM 4.3 mmol/L (3.5-5.1); PROTEIN - SERUM 7.5 g/dL (6.4-8.2)
[2018-01-29 17:25] LABS: KETONE - SERUM NEGATIVE (NEGATIVE)
[2018-01-29 17:39] LABS: MAGNESIUM - SERUM 2.5 mg/dL (1.8-2.4); TROPONIN-I 0.054 ng/mL (0.000-0.060)
[2018-01-29 20:06] VITALS: BP 148/57
[2018-01-29 21:29] VITALS: BP 148/57; BMI 45.2
[2018-01-29] MEDS ORDERED: MYRBETRIQ50 MG PO (22:09)
[2018-01-29] MEDS ORDERED: NOVOLOG100 U/M1 SQ ×2 (22:12→22:51)
[2018-01-29] MEDS ORDERED: REGLAN5 MG PO (22:14)
[2018-01-29] MEDS ORDERED: ULTRAM50 MG PO (22:15)
[2018-01-29] MEDS ORDERED: VOLTAREN100 GM TOPICAL (22:17)
[2018-01-29] MEDS ORDERED: MELATONIN 3 MG1 TAB PO (22:23)
[2018-01-29] MEDS ORDERED: GLYCOLAX527 GM PO (22:24)
[2018-01-29] MEDS ORDERED: NEURONTIN 300300 MG PO (22:24)
[2018-01-29] MEDS ORDERED: NITROSTAT0.4 MG SL (22:26)
[2018-01-29] MEDS ORDERED: ZOLOFT50 MG PO (22:28)
[2018-01-30] VITALS (7 sets, daily range): BP systolic 126–155; BP diastolic 45–61
[2018-01-31 04:00] VITALS: BP 132/52
[2018-01-31 08:48] VITALS: BP 141/51
[2018-01-31 12:28] VITALS: BMI 45.0
[2018-01-31 13:24] VITALS: BP 136/67
[2018-01-31 16:40] VITALS: BP 126/51
[2018-01-31 19:00] VITALS: BP 131/60
[2018-02-01 04:00] VITALS: BP 132/48
[2018-02-01 05:40] LABS: BASOPHILS 0.4 % (0-2); EOSINOPHILS 2.1 % (0-7); HEMATOCRIT 34.8 % (42.0-54.0); HEMOGLOBIN 11.2 g/dL (13.5-17.5); IMMATURE GRANULOCYTES 0.4 % (0-5); LYMPHOCYTES 12.4 % (15-50); MCHC 32.2 g/dL (31.0-37.0); MCV 90.2 fL (80.0-100.0); MEAN PLATELET VOLUME 10.7 fL (7.4-10.4); MONOCYTES 9.2 % (2-11); NEUTROPHILS 75.5 % (40-80); PLATELET COUNT 237 10x3/uL (130-400); RBC 3.86 10x6/uL (4.20-6.10); RDW 14.4 % (11.5-14.5); WBC 9.9 10x3/uL (4.8-10.8)
[2018-02-01 06:16] LABS: ALBUMIN 2.7 g/dL (3.4-5.0); ANION GAP 14.3 mmol/L (8-16); BILIRUBIN - TOTAL 0.36 mg/dL (0.2-1.3); CALCIUM 8.7 mg/dL (8.5-10.1); CARBON DIOXIDE 27.6 mmol/L (21.0-32.0); POTASSIUM - SERUM 3.9 mmol/L (3.5-5.1); PROTEIN - SERUM 7.1 g/dL (6.4-8.2)
[2018-02-01 09:13] VITALS: BP 159/57
[2018-02-01 11:58] VITALS: BP 141/60
[2018-02-01 15:09] LABS: APPEARANCE HAZY (CLEAR); BILIRUBIN NEGATIVE (NEGATIVE); COLOR YELLOW (YELLOW); GLUCOSE NEGATIVE (NEGATIVE); KETONE NEGATIVE (NEGATIVE); NITRITE NEGATIVE (NEGATIVE); PROTEIN TRACE mg/dL (NEGATIVE); UROBILINOGEN NORMAL (NORMAL)
[2018-02-01 15:11] LABS: BACTERIA MANY /hpf (NONE SEEN); RED CELLS - URINE OCC /hpf (0-5)
[2018-02-01 16:47] VITALS: BP 110/42
[2018-02-01 20:00] VITALS: BP 160/58
[2018-02-02] VITALS: BP 132/46
[2018-02-02 04:00] VITALS: BP 136/49
[2018-02-02 05:15] LABS: BASOPHILS 0.4 % (0-2); EOSINOPHILS 1.5 % (0-7); HEMOGLOBIN 10.6 g/dL (13.5-17.5); IMMATURE GRANULOCYTES 0.5 % (0-5); LYMPHOCYTES 14.3 % (15-50); MCH 29.1 pg (26.0-34.0); MCHC 32.1 g/dL (31.0-37.0); MCV 90.7 fL (80.0-100.0); MEAN PLATELET VOLUME 10.5 fL (7.4-10.4); NEUTROPHILS 72.3 % (40-80); PLATELET COUNT 246 10x3/uL (130-400); RBC 3.64 10x6/uL (4.20-6.10); RDW 14.8 % (11.5-14.5); WBC 8.2 10x3/uL (4.8-10.8)
[2018-02-02 05:40] LABS: ALBUMIN 2.7 g/dL (3.4-5.0); BILIRUBIN - TOTAL 0.3 mg/dL (0.2-1.3); CALCIUM 8.8 mg/dL (8.5-10.1); CREATININE - SERUM 2.5 mg/dL (0.6-1.3); PROTEIN - SERUM 7.2 g/dL (6.4-8.2)
[2018-02-02 09:16] VITALS: BP 145/55
[2018-02-02 12:54] VITALS: BP 112/47
[2018-02-02 17:05] VITALS: BP 125/50
[2018-02-03 04:00] VITALS: BP 109/47; BP 115/76
[2018-02-03 05:30] LABS: BASOPHILS 0.4 % (0-2); HEMATOCRIT 32.1 % (42.0-54.0); HEMOGLOBIN 10.5 g/dL (13.5-17.5); IMMATURE GRANULOCYTES 0.7 % (0-5); LYMPHOCYTES 15.5 % (15-50); MCH 29.2 pg (26.0-34.0); MCHC 32.7 g/dL (31.0-37.0); MCV 89.4 fL (80.0-100.0); MEAN PLATELET VOLUME 10.3 fL (7.4-10.4); MONOCYTES 8.6 % (2-11); NEUTROPHILS 72.8 % (40-80); PLATELET COUNT 235 10x3/uL (130-400); RBC 3.59 10x6/uL (4.20-6.10); RDW 14.8 % (11.5-14.5); WBC 6.8 10x3/uL (4.8-10.8)
[2018-02-03 05:44] LABS: ALBUMIN 2.7 g/dL (3.4-5.0); ANION GAP 14.1 mmol/L (8-16); BILIRUBIN - TOTAL 0.3 mg/dL (0.2-1.3); CALCIUM 8.7 mg/dL (8.5-10.1); CARBON DIOXIDE 27.2 mmol/L (21.0-32.0); CREATININE - SERUM 2.2 mg/dL (0.6-1.3); POTASSIUM - SERUM 4.3 mmol/L (3.5-5.1); PROTEIN - SERUM 6.6 g/dL (6.4-8.2)
[2018-02-03 09:44] VITALS: BP 117/48
[2018-02-03 13:07] VITALS: BP 102/51
[2018-02-03 16:20] VITALS: BP 101/43
[2018-02-03 20:00] VITALS: BP 126/43
[2018-02-04] VITALS: BP 106/38
[2018-02-04 04:00] VITALS: BP 126/49
[2018-02-04 06:08] LABS: BASOPHILS 0.5 % (0-2); EOSINOPHILS 3.7 % (0-7); HEMATOCRIT 31.3 % (42.0-54.0); HEMOGLOBIN 10.1 g/dL (13.5-17.5); IMMATURE GRANULOCYTES 0.3 % (0-5); LYMPHOCYTES 18.8 % (15-50); MCH 28.9 pg (26.0-34.0); MCHC 32.3 g/dL (31.0-37.0); MCV 89.4 fL (80.0-100.0); MEAN PLATELET VOLUME 10.2 fL (7.4-10.4); MONOCYTES 10.4 % (2-11); NEUTROPHILS 66.3 % (40-80); PLATELET COUNT 239 10x3/uL (130-400); RDW 14.7 % (11.5-14.5); WBC 6.3 10x3/uL (4.8-10.8)
[2018-02-04 06:40] LABS: ALBUMIN 2.5 g/dL (3.4-5.0); BILIRUBIN - TOTAL 0.3 mg/dL (0.2-1.3); CALCIUM 8.8 mg/dL (8.5-10.1); CARBON DIOXIDE 29.8 mmol/L (21.0-32.0); CREATININE - SERUM 2.4 mg/dL (0.6-1.3); POTASSIUM - SERUM 3.8 mmol/L (3.5-5.1); PROTEIN - SERUM 6.9 g/dL (6.4-8.2)
[2018-02-04 07:52] VITALS: BP 128/53
[2018-02-04 11:28] VITALS: BP 124/49
[2018-02-04 15:24] VITALS: BP 101/44
[2018-02-04 19:34] VITALS: BP 138/54
[2018-02-05] VITALS: BP 155/59
[2018-02-05 05:25] VITALS: BP 105/31
[2018-02-05 05:39] LABS: BASOPHILS 0.4 % (0-2); EOSINOPHILS 1.1 % (0-7); HEMATOCRIT 31.9 % (42.0-54.0); HEMOGLOBIN 10.4 g/dL (13.5-17.5); IMMATURE GRANULOCYTES 0.4 % (0-5); LYMPHOCYTES 11.1 % (15-50); MCH 29.1 pg (26.0-34.0); MCHC 32.6 g/dL (31.0-37.0); MCV 89.4 fL (80.0-100.0); MEAN PLATELET VOLUME 10.2 fL (7.4-10.4); MONOCYTES 10.8 % (2-11); NEUTROPHILS 76.2 % (40-80); PLATELET COUNT 238 10x3/uL (130-400); RBC 3.57 10x6/uL (4.20-6.10); RDW 14.8 % (11.5-14.5)
[2018-02-05 06:01] LABS: ALBUMIN 2.5 g/dL (3.4-5.0); ANION GAP 12.9 mmol/L (8-16); BILIRUBIN - TOTAL 0.3 mg/dL (0.2-1.3); CALCIUM 8.8 mg/dL (8.5-10.1); CARBON DIOXIDE 28.4 mmol/L (21.0-32.0); CREATININE - SERUM 2.4 mg/dL (0.6-1.3); POTASSIUM - SERUM 4.3 mmol/L (3.5-5.1); PROTEIN - SERUM 7.2 g/dL (6.4-8.2)
[2018-02-05 10:05] VITALS: BP 138/51
[2018-02-05 11:31] LABS: CKMB 1.4 U/L (0.0-3.6); CREATINE KINASE 99 UL (21-232)
[2018-02-05 11:32] LABS: TROPONIN-I 0.793 ng/mL (0.000-0.060)
[2018-02-05 13:21] VITALS: BP 102/54
[2018-02-05 13:55] LABS: APPEARANCE HAZY (CLEAR); BILIRUBIN NEGATIVE (NEGATIVE); COLOR YELLOW (YELLOW); GLUCOSE NEGATIVE (NEGATIVE); KETONE NEGATIVE (NEGATIVE); NITRITE NEGATIVE (NEGATIVE); PROTEIN 1+ mg/dL (NEGATIVE); SPECIFIC GRAVITY 1.015 (1.005-1.020); UROBILINOGEN NORMAL (NORMAL)
[2018-02-05 14:01] LABS: BACTERIA MODERATE /hpf (NONE SEEN); HYALINE CAST OCC /lpf (NONE SEEN); MUCUS <1+ /lpf (NONE SEEN); YEAST RARE /hpf (NONE SEEN)
[2018-02-05 16:58] VITALS: BP 108/46
[2018-02-05 18:08] LABS: CKMB 3.2 U/L (0.0-3.6); CREATINE KINASE 150 UL (21-232)
[2018-02-05 18:09] LABS: TROPONIN-I 0.837 ng/mL (0.000-0.060)
[2018-02-05 20:00] VITALS: BP 114/58
[2018-02-05 23:49] LABS: CKMB 2.1 U/L (0.0-3.6); CREATINE KINASE 101 UL (21-232)
[2018-02-05 23:50] LABS: TROPONIN-I 0.792 ng/mL (0.000-0.060)
[2018-02-06 02:30] VITALS: BP 152/58
[2018-02-06 05:00] VITALS: BP 187/66
[2018-02-06 05:57] LABS: BASOPHILS 0.4 % (0-2); HEMATOCRIT 34.3 % (42.0-54.0); HEMOGLOBIN 10.9 g/dL (13.5-17.5); IMMATURE GRANULOCYTES 0.5 % (0-5); LYMPHOCYTES 11.8 % (15-50); MCH 28.7 pg (26.0-34.0); MCHC 31.8 g/dL (31.0-37.0); MCV 90.3 fL (80.0-100.0); MEAN PLATELET VOLUME 10.2 fL (7.4-10.4); MONOCYTES 9.3 % (2-11); PLATELET COUNT 244 10x3/uL (130-400); RDW 14.8 % (11.5-14.5); WBC 9.4 10x3/uL (4.8-10.8)
[2018-02-06 06:18] LABS: ANION GAP 14.6 mmol/L (8-16); CARBON DIOXIDE 27.5 mmol/L (21.0-32.0); CREATININE - SERUM 2.5 mg/dL (0.6-1.3); POTASSIUM - SERUM 4.1 mmol/L (3.5-5.1)
[2018-02-06 09:07] VITALS: BP 137/53
[2018-02-06 12:51] VITALS: BP 96/38
[2018-02-06 16:41] VITALS: BP 106/48
[2018-02-06 21:57] VITALS: BP 121/51; BP 142/58
[2018-02-07 01:08] VITALS: BP 104/38
[2018-02-07 05:54] VITALS: BP 118/461
[2018-02-07 06:21] LABS: BASOPHILS 0.2 % (0-2); EOSINOPHILS 0.4 % (0-7); HEMATOCRIT 31.4 % (42.0-54.0); IMMATURE GRANULOCYTES 0.8 % (0-5); LYMPHOCYTES 8.5 % (15-50); MCH 28.8 pg (26.0-34.0); MCHC 31.8 g/dL (31.0-37.0); MCV 90.5 fL (80.0-100.0); MEAN PLATELET VOLUME 10.2 fL (7.4-10.4); NEUTROPHILS 83.1 % (40-80); PLATELET COUNT 251 10x3/uL (130-400); RBC 3.47 10x6/uL (4.20-6.10)
[2018-02-07 06:29] LABS: WBC 12.8 10x3/uL (4.8-10.8)
[2018-02-07 06:56] LABS: CALCIUM 8.9 mg/dL (8.5-10.1); CARBON DIOXIDE 28.2 mmol/L (21.0-32.0); CREATININE - SERUM 2.6 mg/dL (0.6-1.3); POTASSIUM - SERUM 4.2 mmol/L (3.5-5.1)
[2018-02-07 09:18] VITALS: BP 118/47
[2018-02-07 11:24] VITALS: BP 106/59
[2018-02-07 16:15] VITALS: BP 106/42
[2018-02-07 19:00] VITALS: BP 128/53
[2018-02-08] VITALS: BP 107/46
[2018-02-08 04:00] VITALS: BP 119/44
[2018-02-08 06:49] LABS: BASOPHILS 0.2 % (0-2); EOSINOPHILS 1.2 % (0-7); HEMATOCRIT 29.6 % (42.0-54.0); HEMOGLOBIN 9.5 g/dL (13.5-17.5); IMMATURE GRANULOCYTES 0.5 % (0-5); LYMPHOCYTES 13.5 % (15-50); MCH 28.9 pg (26.0-34.0); MCHC 32.1 g/dL (31.0-37.0); MONOCYTES 6.8 % (2-11); NEUTROPHILS 77.8 % (40-80); PLATELET COUNT 267 10x3/uL (130-400); RBC 3.29 10x6/uL (4.20-6.10); RDW 14.8 % (11.5-14.5); WBC 11.3 10x3/uL (4.8-10.8)
[2018-02-08 07:27] LABS: ANION GAP 16.6 mmol/L (8-16); CARBON DIOXIDE 24.6 mmol/L (21.0-32.0); CREATININE - SERUM 2.7 mg/dL (0.6-1.3); POTASSIUM - SERUM 4.2 mmol/L (3.5-5.1)
[2018-02-08 10:29] VITALS: BP 124/46
[2018-02-08 11:42] VITALS: BP 130/60
[2018-02-08 15:46] VITALS: BP 109/48
[2018-02-08 20:00] VITALS: BP 109/45
[2018-02-09] VITALS: BP 111/46
[2018-02-09 04:00] VITALS: BP 122/48
[2018-02-09 06:13] LABS: BASOPHILS 0.3 % (0-2); EOSINOPHILS 1.8 % (0-7); HEMATOCRIT 29.1 % (42.0-54.0); HEMOGLOBIN 9.3 g/dL (13.5-17.5); IMMATURE GRANULOCYTES 0.5 % (0-5); MCH 28.8 pg (26.0-34.0); MCV 90.1 fL (80.0-100.0); MONOCYTES 8.1 % (2-11); NEUTROPHILS 76.3 % (40-80); PLATELET COUNT 293 10x3/uL (130-400); RBC 3.23 10x6/uL (4.20-6.10); RDW 14.6 % (11.5-14.5); WBC 10.4 10x3/uL (4.8-10.8)
[2018-02-09 06:25] LABS: ANION GAP 12.9 mmol/L (8-16); CALCIUM 8.7 mg/dL (8.5-10.1); CARBON DIOXIDE 27.6 mmol/L (21.0-32.0); CREATININE - SERUM 2.7 mg/dL (0.6-1.3); POTASSIUM - SERUM 4.5 mmol/L (3.5-5.1)
[2018-02-09 08:43] VITALS: Ht 182.9 cm; Wt 170.1 kg
[2018-02-09 09:10] VITALS: BP 116/42
[2018-02-09 12:00] VITALS: BP 110/50
[2018-02-09 16:37] VITALS: BP 94/51
[2018-02-09 19:00] VITALS: BP 101/51
[2018-02-10 04:00] VITALS: BP 148/70
[2018-02-10 05:39] LABS: BASOPHILS 0.3 % (0-2); EOSINOPHILS 1.8 % (0-7); HEMATOCRIT 30.4 % (42.0-54.0); HEMOGLOBIN 9.9 g/dL (13.5-17.5); IMMATURE GRANULOCYTES 0.7 % (0-5); LYMPHOCYTES 14.8 % (15-50); MCHC 32.6 g/dL (31.0-37.0); MCV 89.1 fL (80.0-100.0); MONOCYTES 6.2 % (2-11); NEUTROPHILS 76.2 % (40-80); PLATELET COUNT 321 10x3/uL (130-400); RBC 3.41 10x6/uL (4.20-6.10); RDW 14.4 % (11.5-14.5); WBC 8.7 10x3/uL (4.8-10.8)
[2018-02-10 06:12] LABS: ANION GAP 12.5 mmol/L (8-16); CALCIUM 9.1 mg/dL (8.5-10.1); CARBON DIOXIDE 26.8 mmol/L (21.0-32.0); CREATININE - SERUM 2.2 mg/dL (0.6-1.3); POTASSIUM - SERUM 4.3 mmol/L (3.5-5.1); VANCOMYCIN - RANDOM 26.2 ug/mL (10.0-20.0)
[2018-02-10 08:44] VITALS: BP 97/76
[2018-02-10 11:50] VITALS: BP 96/46
[2018-02-10 16:44] VITALS: BP 98/48
[2018-02-10 17:23] LABS: APPEARANCE CLEAR (CLEAR); BILIRUBIN NEGATIVE (NEGATIVE); COLOR YELLOW (YELLOW); GLUCOSE NEGATIVE (NEGATIVE); KETONE NEGATIVE (NEGATIVE); NITRITE NEGATIVE (NEGATIVE); PROTEIN NEGATIVE (NEGATIVE); RED CELLS - URINE 0-5 /hpf (0-5); UROBILINOGEN NORMAL (NORMAL)
[2018-02-10 17:24] LABS: BACTERIA FEW /hpf (NONE SEEN)
[2018-02-10 21:06] VITALS: BP 141/49
[2018-02-11 01:46] VITALS: BP 126/70
[2018-02-11 05:40] VITALS: BP 138/68
[2018-02-11 08:01] LABS: BASOPHILS 0.8 % (0-2); EOSINOPHILS 2.7 % (0-7); HEMATOCRIT 30.4 % (42.0-54.0); HEMOGLOBIN 9.8 g/dL (13.5-17.5); IMMATURE GRANULOCYTES 0.7 % (0-5); LYMPHOCYTES 14.3 % (15-50); MCHC 32.2 g/dL (31.0-37.0); MCV 89.9 fL (80.0-100.0); MEAN PLATELET VOLUME 9.7 fL (7.4-10.4); MONOCYTES 7.5 % (2-11); PLATELET COUNT 302 10x3/uL (130-400); RBC 3.38 10x6/uL (4.20-6.10); RDW 14.5 % (11.5-14.5); WBC 9.9 10x3/uL (4.8-10.8)
[2018-02-11 08:33] VITALS: BP 141/73
[2018-02-11 08:38] LABS: ANION GAP 13.8 mmol/L (8-16); CALCIUM 8.9 mg/dL (8.5-10.1); CARBON DIOXIDE 27.3 mmol/L (21.0-32.0); PHOSPHOROUS 5.1 mg/dL (2.5-4.9); POTASSIUM - SERUM 4.1 mmol/L (3.5-5.1); VANCOMYCIN - RANDOM 16.6 ug/mL (10.0-20.0)
[2018-02-11 11:41] VITALS: BP 140/80
[2018-02-11 15:37] VITALS: BP 107/51
[2018-02-11 21:09] VITALS: BP 118/50
[2018-02-12 01:02] VITALS: BP 141/76
[2018-02-12 05:31] VITALS: BP 156/56
[2018-02-12 05:35] LABS: BASOPHILS 0.4 % (0-2); EOSINOPHILS 1.4 % (0-7); HEMATOCRIT 29.3 % (42.0-54.0); HEMOGLOBIN 9.3 g/dL (13.5-17.5); IMMATURE GRANULOCYTES 1.1 % (0-5); LYMPHOCYTES 13.7 % (15-50); MCH 28.6 pg (26.0-34.0); MCHC 31.7 g/dL (31.0-37.0); MCV 90.2 fL (80.0-100.0); MONOCYTES 6.5 % (2-11); NEUTROPHILS 76.9 % (40-80); PLATELET COUNT 321 10x3/uL (130-400); RBC 3.25 10x6/uL (4.20-6.10); RDW 14.4 % (11.5-14.5); WBC 11.3 10x3/uL (4.8-10.8)
[2018-02-12 06:14] LABS: ANION GAP 11.8 mmol/L (8-16); CALCIUM 9.1 mg/dL (8.5-10.1); CARBON DIOXIDE 28.2 mmol/L (21.0-32.0); CREATININE - SERUM 1.9 mg/dL (0.6-1.3); PHOSPHOROUS 4.4 mg/dL (2.5-4.9)
[2018-02-12 08:29] VITALS: BP 134/57
[2018-02-12 11:54] VITALS: BP 123/46
[2018-02-12 20:00] VITALS: BP 106/41
[2018-02-13 01:00] VITALS: BP 129/31
[2018-02-13 04:00] VITALS: BP 129/56
[2018-02-13 06:08] LABS: ANION GAP 14.1 mmol/L (8-16); CARBON DIOXIDE 26.4 mmol/L (21.0-32.0); CREATININE - SERUM 1.8 mg/dL (0.6-1.3); PHOSPHOROUS 4.7 mg/dL (2.5-4.9); URIC ACID 7.5 mg/dL (2.6-7.2)
[2018-02-13 06:11] LABS: POTASSIUM - SERUM 5.5 mmol/L (3.5-5.1)
[2018-02-13 06:16] LABS: BASOPHILS 0.9 % (0-2); EOSINOPHILS 1.2 % (0-7); HEMOGLOBIN 9.4 g/dL (13.5-17.5); IMMATURE GRANULOCYTES 3.2 % (0-5); LYMPHOCYTES 13.7 % (15-50); MCH 29.1 pg (26.0-34.0); MCHC 32.4 g/dL (31.0-37.0); MCV 89.8 fL (80.0-100.0); MEAN PLATELET VOLUME 10.6 fL (7.4-10.4); MONOCYTES 7.4 % (2-11); NEUTROPHILS 73.6 % (40-80); PLATELET COUNT 326 10x3/uL (130-400); RBC 3.23 10x6/uL (4.20-6.10); RDW 14.5 % (11.5-14.5); WBC 11.7 10x3/uL (4.8-10.8)
[2018-02-13 07:54] VITALS: BP 132/59
[2018-02-13 13:46] VITALS: BP 126/63
[2018-02-13 15:29] VITALS: BP 138/53
[2018-02-13 21:33] VITALS: BP 135/55
[2018-02-14 01:06] VITALS: BP 138/60
[2018-02-14 06:12] VITALS: BP 153/69
[2018-02-14 06:21] LABS: BASOPHILS 0.1 % (0-2); EOSINOPHILS 0.5 % (0-7); HEMATOCRIT 30.4 % (42.0-54.0); HEMOGLOBIN 9.6 g/dL (13.5-17.5); IMMATURE GRANULOCYTES 0.6 % (0-5); LYMPHOCYTES 7.6 % (15-50); MCH 28.6 pg (26.0-34.0); MCHC 31.6 g/dL (31.0-37.0); MCV 90.5 fL (80.0-100.0); MONOCYTES 6.3 % (2-11); NEUTROPHILS 84.9 % (40-80); PLATELET COUNT 330 10x3/uL (130-400); RBC 3.36 10x6/uL (4.20-6.10); RDW 15.1 % (11.5-14.5)
[2018-02-14 06:49] LABS: ANION GAP 13.6 mmol/L (8-16); CALCIUM 9.4 mg/dL (8.5-10.1); CREATININE - SERUM 1.8 mg/dL (0.6-1.3); PHOSPHOROUS 4.6 mg/dL (2.5-4.9)
[2018-02-14 06:53] LABS: POTASSIUM - SERUM 4.6 mmol/L (3.5-5.1)
[2018-02-14 12:47] VITALS: BP 96/43
[2018-02-14 20:00] VITALS: BP 133/56
[2018-02-15] VITALS: BP 135/50
[2018-02-15 04:00] VITALS: BP 115/46
[2018-02-15 05:12] LABS: BASOPHILS 0.3 % (0-2); EOSINOPHILS 0.6 % (0-7); HEMATOCRIT 29.4 % (42.0-54.0); HEMOGLOBIN 9.3 g/dL (13.5-17.5); IMMATURE GRANULOCYTES 0.3 % (0-5); LYMPHOCYTES 8.7 % (15-50); MCH 28.6 pg (26.0-34.0); MCHC 31.6 g/dL (31.0-37.0); MCV 90.5 fL (80.0-100.0); MEAN PLATELET VOLUME 9.7 fL (7.4-10.4); MONOCYTES 6.6 % (2-11); NEUTROPHILS 83.5 % (40-80); PLATELET COUNT 305 10x3/uL (130-400); RBC 3.25 10x6/uL (4.20-6.10); RDW 14.8 % (11.5-14.5); WBC 11.6 10x3/uL (4.8-10.8)
[2018-02-15 05:47] LABS: CALCIUM 9.4 mg/dL (8.5-10.1); CARBON DIOXIDE 26.4 mmol/L (21.0-32.0); CREATININE - SERUM 1.7 mg/dL (0.6-1.3); PHOSPHOROUS 4.2 mg/dL (2.5-4.9); POTASSIUM - SERUM 4.4 mmol/L (3.5-5.1)
[2018-02-15 07:59] VITALS: BP 153/67
[2018-02-15 11:27] VITALS: BP 111/45
[2018-02-15 15:22] VITALS: BP 120/56
[2018-02-15 20:00] VITALS: BP 159/75
[2018-02-16] VITALS: BP 127/60
[2018-02-16 04:00] VITALS: BP 176/71
[2018-02-16 08:30] VITALS: BP 122/61
[2018-02-16 11:04] VITALS: BP 116/65
[2018-02-16 11:07] LABS: APPEARANCE HAZY (CLEAR); BACTERIA MODERATE /hpf (NONE SEEN); BILIRUBIN NEGATIVE (NEGATIVE); COLOR YELLOW (YELLOW); EPITHELIAL CELLS 0-5 /hpf (0-5); GLUCOSE NEGATIVE (NEGATIVE); KETONE NEGATIVE (NEGATIVE); NITRITE NEGATIVE (NEGATIVE); PROTEIN TRACE mg/dL (NEGATIVE); SPECIFIC GRAVITY 1.015 (1.005-1.020); UROBILINOGEN NORMAL (NORMAL); WHITE CELLS - URINE RARE /hpf (0-5)
[2018-02-16 11:09] LABS: AMORPHOUS SEDIMENT <1+ /lpf (NONE SEEN); GRANULAR CAST OCC /lpf (NONE SEEN); MUCUS <1+ /lpf (NONE SEEN)
[2018-02-16 16:52] VITALS: BP 128/69
[2018-02-16 20:11] VITALS: BP 165/63
[2018-02-17 00:11] VITALS: BP 108/39
[2018-02-17 05:39] VITALS: BP 116/35
[2018-02-17 07:16] LABS: BASOPHILS 0.2 % (0-2); EOSINOPHILS 0.2 % (0-7); HEMOGLOBIN 8.7 g/dL (13.5-17.5); IMMATURE GRANULOCYTES 0.3 % (0-5); LYMPHOCYTES 6.7 % (15-50); MCH 28.6 pg (26.0-34.0); MCHC 32.2 g/dL (31.0-37.0); MCV 88.8 fL (80.0-100.0); MEAN PLATELET VOLUME 10.2 fL (7.4-10.4); MONOCYTES 5.9 % (2-11); NEUTROPHILS 86.7 % (40-80); PLATELET COUNT 289 10x3/uL (130-400); RBC 3.04 10x6/uL (4.20-6.10); RDW 14.8 % (11.5-14.5); WBC 15.3 10x3/uL (4.8-10.8)
[2018-02-17 07:27] LABS: ANION GAP 10.3 mmol/L (8-16); CALCIUM 9.4 mg/dL (8.5-10.1); CARBON DIOXIDE 25.6 mmol/L (21.0-32.0); CREATININE - SERUM 1.8 mg/dL (0.6-1.3); POTASSIUM - SERUM 3.9 mmol/L (3.5-5.1); VANCOMYCIN - RANDOM 30.7 ug/mL (10.0-20.0)
[2018-02-17 08:29] VITALS: BP 191/83
[2018-02-17 09:36] LABS: BASOPHILS 0.2 % (0-2); EOSINOPHILS 0.1 % (0-7); HEMATOCRIT 27.9 % (42.0-54.0); HEMOGLOBIN 9.3 g/dL (13.5-17.5); IMMATURE GRANULOCYTES 0.3 % (0-5); LYMPHOCYTES 5.9 % (15-50); MCH 29.6 pg (26.0-34.0); MCHC 33.3 g/dL (31.0-37.0); MCV 88.9 fL (80.0-100.0); MEAN PLATELET VOLUME 9.9 fL (7.4-10.4); MONOCYTES 4.4 % (2-11); NEUTROPHILS 89.1 % (40-80); PLATELET COUNT 301 10x3/uL (130-400); RBC 3.14 10x6/uL (4.20-6.10); RDW 14.9 % (11.5-14.5)
[2018-02-17 09:40] LABS: ANION GAP 13.4 mmol/L (8-16); CALCIUM 9.3 mg/dL (8.5-10.1); CARBON DIOXIDE 23.3 mmol/L (21.0-32.0); POTASSIUM - SERUM 3.7 mmol/L (3.5-5.1); VANCOMYCIN - RANDOM 26.3 ug/mL (10.0-20.0)
[2018-02-17 09:44] LABS: WBC 19.4 10x3/uL (4.8-10.8)
[2018-02-17 11:45] VITALS: BP 91/48
[2018-02-17 20:00] VITALS: BP 141/77
[2018-02-18 02:57] VITALS: BP 146/68
[2018-02-18 05:27] VITALS: BP 142/72
[2018-02-18 06:29] LABS: BASOPHILS 0.2 % (0-2); EOSINOPHILS 0.5 % (0-7); HEMATOCRIT 25.6 % (42.0-54.0); HEMOGLOBIN 8.3 g/dL (13.5-17.5); IMMATURE GRANULOCYTES 0.3 % (0-5); MCH 28.6 pg (26.0-34.0); MCHC 32.4 g/dL (31.0-37.0); MCV 88.3 fL (80.0-100.0); MONOCYTES 6.5 % (2-11); NEUTROPHILS 84.5 % (40-80); PLATELET COUNT 246 10x3/uL (130-400)
[2018-02-18 06:34] LABS: WBC 13.3 10x3/uL (4.8-10.8)
[2018-02-18 06:46] LABS: ANION GAP 14.2 mmol/L (8-16); CALCIUM 8.8 mg/dL (8.5-10.1); CARBON DIOXIDE 24.4 mmol/L (21.0-32.0); CREATININE - SERUM 2.2 mg/dL (0.6-1.3); PHOSPHOROUS 4.6 mg/dL (2.5-4.9); POTASSIUM - SERUM 3.6 mmol/L (3.5-5.1); VANCOMYCIN - RANDOM 21.4 ug/mL (10.0-20.0)
[2018-02-18 08:27] VITALS: BP 140/73
[2018-02-18 12:15] VITALS: BP 117/71
[2018-02-18 15:42] VITALS: BP 109/52
[2018-02-18 20:00] VITALS: BP 158/84
[2018-02-19 01:00] VITALS: BP 113/62
[2018-02-19 04:00] VITALS: BP 129/58
[2018-02-19 07:27] LABS: BASOPHILS 0.1 % (0-2); EOSINOPHILS 0.4 % (0-7); HEMATOCRIT 25.6 % (42.0-54.0); HEMOGLOBIN 8.3 g/dL (13.5-17.5); IMMATURE GRANULOCYTES 0.4 % (0-5); LYMPHOCYTES 5.4 % (15-50); MCH 28.3 pg (26.0-34.0); MCHC 32.4 g/dL (31.0-37.0); MCV 87.4 fL (80.0-100.0); MEAN PLATELET VOLUME 9.8 fL (7.4-10.4); MONOCYTES 6.8 % (2-11); NEUTROPHILS 86.9 % (40-80); PLATELET COUNT 279 10x3/uL (130-400); RBC 2.93 10x6/uL (4.20-6.10)
[2018-02-19 07:31] LABS: WBC 17.7 10x3/uL (4.8-10.8)
[2018-02-19 07:43] LABS: ANION GAP 13.5 mmol/L (8-16); CALCIUM 8.8 mg/dL (8.5-10.1); CARBON DIOXIDE 24.2 mmol/L (21.0-32.0); CREATININE - SERUM 2.4 mg/dL (0.6-1.3); PHOSPHOROUS 5.2 mg/dL (2.5-4.9); POTASSIUM - SERUM 3.7 mmol/L (3.5-5.1)
[2018-02-19 08:53] VITALS: BP 152/73
[2018-02-19 11:43] VITALS: BP 144/68
[2018-02-19 15:17] VITALS: BP 119/61
[2018-02-19 20:00] VITALS: BP 112/54
[2018-02-20] VITALS: BP 107/48
[2018-02-20 04:00] VITALS: BP 105/58
[2018-02-20 06:39] LABS: HEMATOCRIT 25.4 % (42.0-54.0); HEMOGLOBIN 8.3 g/dL (13.5-17.5); LYMPHOCYTES 6.2 % (15-50); MCHC 32.7 g/dL (31.0-37.0); MCV 88.8 fL (80.0-100.0); MEAN PLATELET VOLUME 9.9 fL (7.4-10.4); NEUTROPHILS 87.2 % (40-80); PLATELET COUNT 236 10x3/uL (130-400); RBC 2.86 10x6/uL (4.20-6.10); RDW 15.2 % (11.5-14.5); WBC 17.4 10x3/uL (4.8-10.8)
[2018-02-20 07:09] LABS: ANION GAP 18.2 mmol/L (8-16); CALCIUM 8.8 mg/dL (8.5-10.1); CARBON DIOXIDE 19.9 mmol/L (21.0-32.0); POTASSIUM - SERUM 4.1 mmol/L (3.5-5.1)
[2018-02-20 07:11] LABS: CREATININE - SERUM 3.6 mg/dL (0.6-1.3); PHOSPHOROUS 6.6 mg/dL (2.5-4.9)
[2018-02-20 08:44] VITALS: BP 108/52
[2018-02-20 11:42] VITALS: BP 95/53
[2018-02-20 15:23] VITALS: BP 106/51
[2018-02-20 20:00] VITALS: BP 107/47
[2018-02-21] VITALS: BP 103/36
== END 2018-02-21 05:14 ==
LOC: D.ER 15:56 → D.M2 18:45
PROVIDERS: Emergency Medicine; Family Medicine; Internal Medicine Cardiovascular Disease; Internal Medicine Nephrology; Nurse Practitioner Family; Student in an Organized Health Care Education/Training Program
DX: I13.0 Hypertensive heart and chronic kidney disease with heart failure and stage 1 through stage 4 chronic kidney disease, or unspecified chronic kidney disease (principal); I50.33 Acute on chronic diastolic (congestive) heart failure; I21.4 Non-ST elevation (NSTEMI) myocardial infarction; I33.0 Acute and subacute infective endocarditis; N17.0 Acute kidney failure with tubular necrosis; A41.02 Sepsis due to Methicillin resistant Staphylococcus aureus; N39.0 Urinary tract infection, site not specified; K52.1 Toxic gastroenteritis and colitis; N18.3 Chronic kidney disease, stage 3 (moderate); E11.22 Type 2 diabetes mellitus with diabetic chronic kidney disease; I25.10 Atherosclerotic heart disease of native coronary artery without angina pectoris; E11.51 Type 2 diabetes mellitus with diabetic peripheral angiopathy without gangrene; G47.33 Obstructive sleep apnea (adult) (pediatric); K21.9 Gastro-esophageal reflux disease without esophagitis; L60.2 Onychogryphosis; Z66 Do not resuscitate; M21.612 Bunion of left foot; M21.611 Bunion of right foot; S90.931A Unspecified superficial injury of right great toe, initial encounter; X58.XXXA Exposure to other specified factors, initial encounter; B96.20 Unspecified Escherichia coli [E. coli] as the cause of diseases classified elsewhere; L89.309 Pressure ulcer of unspecified buttock, unspecified stage; E87.5 Hyperkalemia; G47.00 Insomnia, unspecified; T36.95XA Adverse effect of unspecified systemic antibiotic, initial encounter; Z95.2 Presence of prosthetic heart valve; Z86.73 Personal history of transient ischemic attack (TIA), and cerebral infarction without residual deficits